=== PATIENT | male | born 1935 | race Caucasian/White ===

== ENCOUNTER 2016-11-13 15:55 | Inpatient (IN) | payer MEDICARE ==
[2016-11-12] MEDS: INSULIN ASPART SUPPLEMENTAL SCALE SQ SCH (23:00)
[2016-11-12] MEDS: ATENOLOL 25 MG TAB PO SCH (23:00)
[~2016-11-13] VITALS: Ht 170.2 cm; Wt 70.0 kg
[~2016-11-13 15:55] MED LIST: 1-ME1LIQ PO; ATEN-100 PO; GLUCTAB PO; HYDR-3533 PO; MEVA40TA PO; OMEP20TA39 PO; TEMA15 PO; WARF2.5 PO
[2016-11-13 17:21] VITALS: BP 111/65; PULSE 65; RESP 16; TEMP 98.1; O2SAT 99
[2016-11-13 17:43] VITALS: BP 156/71; PULSE 111; RESP 19; TEMP 98.7; TEMP 99; O2SAT 97
[2016-11-13] MEDS ORDERED: VANCOMYCIN INJ 1,000 MG in SODIUM CHLOR 0.9% 250 ML INJ 250 ML IV STA (17:48)
[2016-11-13] MEDS ORDERED: CEFEPIME INJ 2,000 MG in SODIUM CHLORIDE 0.9% INJ 100 ML IV STA (17:48)
[2016-11-13] MEDS ORDERED: SODIUM CHLOR 0.9% 1000 ML INJ 1,000 ML IV ONE (17:48)
--- NOTE | 2016-11-13 17:51 | PD ---
HPI Chief Complaint: Complaint Time Seen by Provider: 17:51 Travel History International Travel<30 days: No Contact w/Intl Traveler<30days: No Traveled to known affect area: No History of Present Illness HPI 81-year-old male history of CVA, hypertension, A. fib, prostate cancer, bladder cancer, diabetes, presents to the emergency department for evaluation. Patient states he had a procedure done on October 28 on his prostate and had a Delgado catheter placed since then. Since that time his penis has been hurting. He reports development of diarrhea over the last 2-3 days or he also reports nausea and vomiting. Denies any hematemesis or hematochezia. He states that he feels weak and chilled. He states that he has felt short of breath as well. Denies any chest pain. Reports recently but being on "some antibiotic"for his bladder. He is followed by Dr. Quang Mcdonough . [facility] Past Medical History Hx Anticoagulant Therapy: Yes Arthritis: Yes Cancer: Yes (BLADDER AND SKIN CANCER) Cardiovascular Problems: Yes High Cholesterol: Yes Chemotherapy: No Cerebrovascular Accident: Yes Diabetes: Yes Patient Takes Glucophage: Yes Diminished Hearing: Yes ([place]) Endocrine: Yes Gastrointestinal Disorders: Yes GERD: Yes Genitourinary: No Hypertension: Yes Immune Disorder: No Implanted Vascular Access Dvce: No Musculoskeletal: Yes Neurologic: Yes (CVA) Psychiatric: No Respiratory: No Immunizations Current: No Radiation Therapy: No Past Surgical History Eye Surgery: Yes (BILAT CATARACTS) Genitourinary Surgery: Yes (MULTIPLE BLADDER SURGERY R/T BLADDER CA) Prostatectomy: Yes Other Surgery: Yes Social History Alcohol Use: No Tobacco Use: No Substance Use: No Allergies-Medications (Allergen,Severity, Reaction): Coded Allergies: No Known Allergies (Unverified , 12/26/15) Reported Meds & Prescriptions Reported Meds & Active Scripts Active Lortab 5 mg/325 mg (Hydrocodone/Acetaminophen 5 mg/325 mg) 1 Tab 1 Tab PO Q8HR PRN Reported Hm Omeprazole (Omeprazole) 20 Mg Tab 20 Mg PO DAILY Glucophage XR 24 HR (Metformin HCl) 500 Mg Tab 500 Mg PO BID Restoril 15 mg (Temazepam) 15 Mg Cap 15 Mg PO HSPRN Atenolol 25 Mg Tab 5 Mg PO HS Lovastatin 40 Mg Tab 60 Mg PO HS 1-Methyl 2-Pyrrolidinone (1-Methyl 2-Pyrrolidone (Bulk)) 10 Mg Tab 10 Mg PO HS Coumadin (Warfarin Sodium) 2.5 Mg Tab 2.5 Mg PO HS Review of Systems Except as stated in HPI: all other systems reviewed are Neg Physical Exam Narrative GENERAL: Thin elderly male patient, lying in bed in no acute SKIN: Focused skin assessment warm/dry. HEAD: Atraumatic. Normocephalic. EYES: Pupils equal and round. No scleral icterus. No injection or drainage. ENT: No nasal bleeding or discharge. Mucous membranes pink and moist. NECK: Trachea midline. No JVD. CARDIOVASCULAR: Tachycardic rate and irregular rhythm. 2/6 systolic murmur appreciated. RESPIRATORY: Tachypneic, diminished to auscultation. Breath sounds equal bilaterally. GASTROINTESTINAL: Abdomen soft, non-tender, nondistended. Hepatic and splenic margins not palpable. GENITOURINARY: unCircumcised. Delgado catheter is in place. Foreskin retracts easily. Mild meatal irritation. Testes descended bilaterally without evidence of rotation. No lesions or erythema. No urethral discharge. MUSCULOSKELETAL: No obvious deformities. No clubbing. No cyanosis. No edema. NEUROLOGICAL: Awake and alert. No obvious cranial nerve deficits. Motor grossly within normal limits. Normal speech. PSYCHIATRIC: Appropriate mood and affect; insight and judgment normal. Data Data Last Documented VS Vital Signs Date Time Temp Pulse Resp B/P Pulse Ox O2 Delivery O2 Flow Rate FiO2 11/13/16 18:20 97 Room Air 11/13/16 17:43 99.0 111 19 156/71 Orders Complete Blood Count With Diff (11/13/16 17:48) Comprehensive Metabolic Panel (11/13/16 17:48) Prothrombin Time / Inr (Pt) (11/13/16 17:48) Act Partial Throm Time (Ptt) (11/13/16 17:48) Lactic Acid Sepsis Protocol (11/13/16 17:48) Magnesium (Mg) (11/13/16 17:48) Ckmb (Isoenzyme) Profile (11/13/16 17:48) Troponin I (11/13/16 17:48) Urinalysis - C+S If Indicated (11/13/16 17:48) Blood Culture (11/13/16 17:48) Chest, Single Ap (11/13/16 17:48) Blood Glucose (11/13/16 17:48) Ecg Monitoring (11/13/16 17:48) Iv Access Insert/Monitor (11/13/16 17:48) Oximetry (11/13/16 17:48) Oxygen Administration (11/13/16 17:48) Cefepime Inj (Maxipime Inj) (11/13/16 17:48) Vancomycin Inj (Vancomycin Inj) (11/13/16 17:48) Sodium Chlor 0.9% 1000 Ml Inj (Ns 1000 M (11/13/16 17:48) CKMB (11/13/16 16:00) CKMB% (11/13/16 16:00) C Diff Toxin Pcr (11/13/16 19:25) Replace Delgado (11/13/16 19:33) Electrocardiogram (11/13/16 17:54) Admit Order (Ed Use Only) (11/13/16 20:14) Labs Laboratory Tests Test 11/13/16 11/13/16 16:00 19:30 White Blood Count 1.5 TH/MM3 Red Blood Count 3.48 MIL/MM3 Hemoglobin 10.8 GM/DL Hematocrit 31.2 % Mean Corpuscular Volume 89.8 FL Mean Corpuscular Hemoglobin 30.9 PG Mean Corpuscular Hemoglobin 34.4 % Concent Red Cell Distribution Width 14.5 % Platelet Count 148 TH/MM3 Mean Platelet Volume 8.5 FL Neutrophils (%) (Auto) % Lymphocytes (%) (Auto) % Monocytes (%) (Auto) % Eosinophils (%) (Auto) % Basophils (%) (Auto) % Neutrophils # (Auto) TH/MM3 Lymphocytes # (Auto) TH/MM3 Monocytes # (Auto) TH/MM3 Eosinophils # (Auto) TH/MM3 Basophils # (Auto) TH/MM3 CBC Comment AUTO DIFF Differential Total Cells 100 Counted Neutrophils % (Manual) 53 % Band Neutrophils % 23 % Lymphocytes % 17 % Monocytes % 5 % Neutrophils # (Manual) 1.2 TH/MM3 Metamyelocytes 2 % Differential Comment FINAL DIFF MANUAL Toxic Granulation 1+ Platelet Estimate LOW Platelet Morphology Comment NORMAL Ovalocytes 1+ Acanthocytes OCC Keratocytes OCC Prothrombin Time 49.5 SEC Prothromb Time International 4.2 RATIO Ratio Activated Partial 53.7 SEC Thromboplast Time Sodium Level 136 MEQ/L Potassium Level 3.9 MEQ/L Chloride Level 102 MEQ/L Carbon Dioxide Level 22.9 MEQ/L Anion Gap 11 MEQ/L Blood Urea Nitrogen 21 MG/DL Creatinine 1.70 MG/DL Estimat Glomerular Filtration 39 ML/MIN Rate Random Glucose 123 MG/DL Lactic Acid Level 2.6 mmol/L Calcium Level 8.5 MG/DL Magnesium Level 2.0 MG/DL Total Bilirubin 0.6 MG/DL Aspartate Amino Transf 33 U/L (AST/SGOT) Alanine Aminotransferase 19 U/L (ALT/SGPT) Alkaline Phosphatase 51 U/L Total Creatine Kinase 433 U/L Creatine Kinase MB LESS THAN 0.5 NG/ML Creatine Kinase MB % 0.1 % Troponin I 0.07 NG/ML Total Protein 6.6 GM/DL Albumin 2.9 GM/DL Urine Color LIGHT-RED Urine Turbidity CLOUDY Urine pH 5.5 Urine Specific [place] 1.020 Urine Protein 100 mg/dL Urine Glucose (UA) NEG mg/dL Urine Ketones TRACE mg/dL Urine Occult Blood LARGE Urine Nitrite POS Urine Bilirubin NEG Urine Urobilinogen LESS THAN 2.0 MG/DL Urine Leukocyte Esterase LARGE Urine RBC /hpf Urine WBC 115 /hpf Urine Squamous Epithelial 1 /hpf Cells Urine Amorphous Sediment RARE Urine Bacteria MANY /hpf Urine Mucus FEW /lpf Microscopic Urinalysis Comment CATH-CULTURE IND MDM Medical Decision Making Medical Screen Exam Complete: Yes Emergency Medical Condition: Yes Medical Record Reviewed: Yes Differential Diagnosis UTI versus pneumonia versus electrolyte abnormality versus metastatic disease versus sepsis Narrative Course 81-year-old male presents to emergency department for evaluation. Patient is tachycardic and to Care in emergency department. He has a low-grade temperature. Septic workup is initiated. Patient is given cefepime and vancomycin. Delgado catheter is changed and urinalysis sent for evaluation. Laboratory Tests Test 11/13/16 11/13/16 16:00 19:30 White Blood Count 1.5 TH/MM3 Red Blood Count 3.48 MIL/MM3 Hemoglobin 10.8 GM/DL Hematocrit 31.2 % Mean Corpuscular Volume 89.8 FL Mean Corpuscular Hemoglobin 30.9 PG Mean Corpuscular Hemoglobin 34.4 % Concent Red Cell Distribution Width 14.5 % Platelet Count 148 TH/MM3 Mean Platelet Volume 8.5 FL Neutrophils (%) (Auto) % Lymphocytes (%) (Auto) % Monocytes (%) (Auto) % Eosinophils (%) (Auto) % Basophils (%) (Auto) % Neutrophils # (Auto) TH/MM3 Lymphocytes # (Auto) TH/MM3 Monocytes # (Auto) TH/MM3 Eosinophils # (Auto) TH/MM3 Basophils # (Auto) TH/MM3 CBC Comment AUTO DIFF Differential Total Cells 100 Counted Neutrophils % (Manual) 53 % Band Neutrophils % 23 % Lymphocytes % 17 % Monocytes % 5 % Neutrophils # (Manual) 1.2 TH/MM3 Metamyelocytes 2 % Differential Comment FINAL DIFF MANUAL Toxic Granulation 1+ Platelet Estimate LOW Platelet Morphology Comment NORMAL Ovalocytes 1+ Acanthocytes OCC Keratocytes OCC Prothrombin Time 49.5 SEC Prothromb Time International 4.2 RATIO Ratio Activated Partial 53.7 SEC Thromboplast Time Sodium Level 136 MEQ/L Potassium Level 3.9 MEQ/L Chloride Level 102 MEQ/L Carbon Dioxide Level 22.9 MEQ/L Anion Gap 11 MEQ/L Blood Urea Nitrogen 21 MG/DL Creatinine 1.70 MG/DL Estimat Glomerular Filtration 39 ML/MIN Rate Random Glucose 123 MG/DL Lactic Acid Level 2.6 mmol/L Calcium Level 8.5 MG/DL Magnesium Level 2.0 MG/DL Total Bilirubin 0.6 MG/DL Aspartate Amino Transf 33 U/L (AST/SGOT) Alanine Aminotransferase 19 U/L (ALT/SGPT) Alkaline Phosphatase 51 U/L Total Creatine Kinase 433 U/L Creatine Kinase MB LESS THAN 0.5 NG/ML Creatine Kinase MB % 0.1 % Troponin I 0.07 NG/ML Total Protein 6.6 GM/DL Albumin 2.9 GM/DL Urine Color LIGHT-RED Urine Turbidity CLOUDY Urine pH 5.5 Urine Specific [place] 1.020 Urine Protein 100 mg/dL Urine Glucose (UA) NEG mg/dL Urine Ketones TRACE mg/dL Urine Occult Blood LARGE Urine Nitrite POS Urine Bilirubin NEG Urine Urobilinogen LESS THAN 2.0 MG/DL Urine Leukocyte Esterase LARGE Urine RBC /hpf Urine WBC 115 /hpf Urine Squamous Epithelial 1 /hpf Cells Urine Amorphous Sediment RARE Urine Bacteria MANY /hpf Urine Mucus FEW /lpf Microscopic Urinalysis Comment CATH-CULTURE IND Last Impressions Chest X-Ray 11/13/16 1158 Signed Impressions: Service Date/Time: Sunday, November 13, 2016 18:15 - CONCLUSION: Increasing parenchymal changes right lower lobe. Serial films to resolution are suggested. Giuseppe Khanna MD FACR I discussed the patient with Dr. Mcdonough. He requested admission to his service with telemetry. Plan is discussed with the patient and he is known agreement with this plan of care. Sepsis Criteria SIRS Criteria (2 or more): Heart rate over 90, RR > 20 or PaCO2 < 32, WBC > 17575, < 4000 or > 10% bands Sepsis Criteria (SIRS+source): Infect source susp/known Severe Sepsis (+one): Lactate >2 Diagnosis Primary Impression: Sepsis Qualified Code: A41.9 - Sepsis, due to unspecified organism Additional Impressions: UTI (urinary tract infection) Qualified Code: T83.511A - Urinary tract infection associated with indwelling urethral catheter, initial encounter Diarrhea Qualified Code: R19.7 - Diarrhea, unspecified type Nausea & vomiting Qualified Code: R11.2 - Non-intractable vomiting with nausea, unspecified vomiting type Admitting Information Admitting Physician Requests: Admit Condition: Stable Jennifer Orellana Nov 13, 2016 17:51
[2016-11-13 18:20] VITALS: O2SAT 97
[2016-11-13 18:34] LABS: HEMATOCRIT 31.2 % (39.0-51.0); MEAN CELL VOLUME 89.8 FL (80.0-100.0); MEAN CORPUSCULAR HEMOGLOBIN 30.9 PG (27.0-34.0); MEAN CORPUSCULAR HGB CONC 34.4 % (32.0-36.0); PLATELET COUNT 148 TH/MM3 (150-450); RED BLOOD COUNT 3.48 MIL/MM3 (4.50-5.90); RED CELL DISTRIBUTION WIDTH 14.5 % (11.6-17.2); WHITE BLOOD COUNT 1.5 TH/MM3 (4.0-11.0)
[2016-11-13 18:35] LABS: HEMO FLAGS AUTO DIFF
--- NOTE | 2016-11-13 18:36 | RADRPT ---
EXAM DATE/TIME: 11/13/2016 18:15 [facility] COMPARISON: CHEST SINGLE AP, June 12, 2014, 5:21. INDICATIONS : Fever. History adenocarcinoma. In the mid and MEDICAL HISTORY : None. SURGICAL HISTORY : None. ENCOUNTER: Initial ACUITY: 1 day PAIN SCORE: 0/10 LOCATION: Bilateral chest FINDINGS: Linear parenchymal opacity is seen in the right lung with increasing frontal changes right lower lobe . The left lung is clear. The heart and pulmonary vascularity are normal. CONCLUSION: Increasing parenchymal changes right lower lobe. Serial films to resolution are john cerda. Giuseppe Khanna MD FACR on November 13, 2016 at 18:33 Board Certified Radiologist. This report was verified electronically.
[2016-11-13 18:52] LABS: APTT (PATIENT) 53.7 SEC (24.3-30.1); INTERNATIONAL NORMALIZED RATIO 4.2 RATIO; PROTHROMBIN TIME - PATIENT 49.5 SEC (9.8-11.6)
[2016-11-13 18:56] LABS: ALT (GPT) 19 U/L (12-78)
[2016-11-13 19:00] LABS: ALKALINE PHOSPHATASE 51 U/L (45-117); CREATINE KINASE 433 U/L (39-308); TOTAL BILIRUBIN ADULT 0.6 MG/DL (0.2-1.0)
[2016-11-13 19:08] LABS: BANDS 23 % (0-6); METAMYELOCYTES 2 % (0-1); NEUTROPHIL # MANUAL DIFF 1.2 TH/MM3 (1.8-7.7); POLYS (SEG NEUTROPHILS) 53 % (16-70); SCAN/DIFF FINAL DIFF MANUAL; WBC DIFF SAMPLE 100
[2016-11-13 19:09] LABS: OVALOCYTES 1+ (NORMAL); PLATELET ESTIMATE SMEAR LOW (NORMAL); PLATELET MORPHOLOGY NORMAL (NORMAL); TOXIC GRANULATION 1+ (NORMAL)
[2016-11-13 19:10] LABS: ACANTHOCYTES OCC (NORMAL); KERATOCYTES OCC (NORMAL)
[2016-11-13 19:13] LABS: CKMB LESS THAN 0.5 NG/ML (0.5-3.6)
[2016-11-13 19:24] LABS: ANION GAP 11 MEQ/L (5-15); AST (GOT) 33 U/L (15-37); BICARBONATE 22.9 MEQ/L (21.0-32.0); BLOOD UREA NITROGEN 21 MG/DL (7-18); CHLORIDE 102 MEQ/L (98-107); GLOMERULAR FILTRATION RATE 39 ML/MIN (>89); POTASSIUM 3.9 MEQ/L (3.5-5.1); SODIUM (NA) 136 MEQ/L (136-145)
[2016-11-13 20:17] LABS: BACTERIA, URINE MANY /hpf; BLOOD, URINE LARGE (NEG); GLUCOSE,URINE NEG (NEG); KETONE, URINE TRACE mg/dL (NEG); MUCUS URINE FEW /lpf (OCC); PH, URINE 5.5 (5.0-8.5); SQUAMOUS EPITHELIAL CELL URINE 1 /hpf (0-5)
[2016-11-13 20:20] LABS: COMMENT (UR) CATH-CULTURE IND; CULTURE IF INDICATED CATH CULTURE IND; NITRITE,URINE POS (NEG); URINE COLOR LIGHT-RED (YELLW/STRAW)
[2016-11-13 20:20] LABS: LACTIC ACID GHOST NOT REPORTABLE
[2016-11-13] MEDS ORDERED: ACETAMINOPHEN 325 MG TAB PO PRN (20:30)
[2016-11-13] MEDS ORDERED: SENNOSIDES 8.6 MG TAB PO PRN (20:30)
[2016-11-13] MEDS ORDERED: NALOXONE HCL 0.4 MG/ML AMP IV PRN (20:30)
[2016-11-13] MEDS ORDERED: ONDANSETRON HCL 4 MG/2 ML VIAL IVP PRN (20:30)
[2016-11-13] MEDS ORDERED: MAGNESIUM HYDROXIDE SUSP 30 ML CUP PO PRN (20:30)
[2016-11-13] MEDS ORDERED: BISACODYL 10 MG SUPP RECTAL PRN (20:30)
[2016-11-13] MEDS ORDERED: TEMAZEPAM 15 MG CAP PO PRN (20:30)
[2016-11-13] MEDS ORDERED: LACTULOSE SYRUP 20 GM/30 ML CUP PO PRN (20:30)
[2016-11-13] MEDS ORDERED: SODIUM CHLORIDE 0.9% FLUSH 10 ML FLUSH IV FLUSH PRN (20:30)
[2016-11-13] MEDS ORDERED: DEXTROSE 50% IN WATER 50 ML VIAL(D50) IV PRN (20:45)
[2016-11-13] MEDS ORDERED: GLUCAGON 1 MG/ML VIAL OTHER PRN (20:45)
[2016-11-13] MEDS ORDERED: Vancomycin Consult Pharmacy 1 EA OTHER SCH (20:45)
[2016-11-13] MEDS ORDERED: WARFARIN SOD 2.5 MG TAB PO SCH (21:00)
[2016-11-13] MEDS ORDERED: TEMAZEPAM 15 MG CAP PO SCH (21:00)
[2016-11-13] MEDS: SODIUM CHLORIDE 0.9% FLUSH 10 ML FLUSH IV FLUSH SCH (21:00)
--- NOTE | 2016-11-13 21:05 | PD ---
Data Data Last Documented VS Vital Signs Date Time Temp Pulse Resp B/P Pulse Ox O2 Delivery O2 Flow Rate FiO2 11/13/16 18:20 97 Room Air 11/13/16 17:43 99.0 111 19 156/71 Orders Complete Blood Count With Diff (11/13/16 17:48) Comprehensive Metabolic Panel (11/13/16 17:48) Prothrombin Time / Inr (Pt) (11/13/16 17:48) Act Partial Throm Time (Ptt) (11/13/16 17:48) Lactic Acid Sepsis Protocol (11/13/16 17:48) Magnesium (Mg) (11/13/16 17:48) Ckmb (Isoenzyme) Profile (11/13/16 17:48) Troponin I (11/13/16 17:48) Urinalysis - C+S If Indicated (11/13/16 17:48) Blood Culture (11/13/16 17:48) Chest, Single Ap (11/13/16 17:48) Blood Glucose (11/13/16 17:48) Ecg Monitoring (11/13/16 17:48) Iv Access Insert/Monitor (11/13/16 17:48) Oximetry (11/13/16 17:48) Oxygen Administration (11/13/16 17:48) Cefepime Inj (Maxipime Inj) (11/13/16 17:48) Vancomycin Inj (Vancomycin Inj) (11/13/16 17:48) Sodium Chlor 0.9% 1000 Ml Inj (Ns 1000 M (11/13/16 17:48) CKMB (11/13/16 16:00) CKMB% (11/13/16 16:00) C Diff Toxin Pcr (11/13/16 19:25) Replace Delgado (11/13/16 19:33) Electrocardiogram (11/13/16 17:54) Admit Order (Ed Use Only) (11/13/16 20:14) Labs Laboratory Tests Test 11/13/16 11/13/16 16:00 19:30 White Blood Count 1.5 TH/MM3 Red Blood Count 3.48 MIL/MM3 Hemoglobin 10.8 GM/DL Hematocrit 31.2 % Mean Corpuscular Volume 89.8 FL Mean Corpuscular Hemoglobin 30.9 PG Mean Corpuscular Hemoglobin 34.4 % Concent Red Cell Distribution Width 14.5 % Platelet Count 148 TH/MM3 Mean Platelet Volume 8.5 FL Neutrophils (%) (Auto) % Lymphocytes (%) (Auto) % Monocytes (%) (Auto) % Eosinophils (%) (Auto) % Basophils (%) (Auto) % Neutrophils # (Auto) TH/MM3 Lymphocytes # (Auto) TH/MM3 Monocytes # (Auto) TH/MM3 Eosinophils # (Auto) TH/MM3 Basophils # (Auto) TH/MM3 CBC Comment AUTO DIFF Differential Total Cells 100 Counted Neutrophils % (Manual) 53 % Band Neutrophils % 23 % Lymphocytes % 17 % Monocytes % 5 % Neutrophils # (Manual) 1.2 TH/MM3 Metamyelocytes 2 % Differential Comment FINAL DIFF MANUAL Toxic Granulation 1+ Platelet Estimate LOW Platelet Morphology Comment NORMAL Ovalocytes 1+ Acanthocytes OCC Keratocytes OCC Prothrombin Time 49.5 SEC Prothromb Time International 4.2 RATIO Ratio Activated Partial 53.7 SEC Thromboplast Time Sodium Level 136 MEQ/L Potassium Level 3.9 MEQ/L Chloride Level 102 MEQ/L Carbon Dioxide Level 22.9 MEQ/L Anion Gap 11 MEQ/L Blood Urea Nitrogen 21 MG/DL Creatinine 1.70 MG/DL Estimat Glomerular Filtration 39 ML/MIN Rate Random Glucose 123 MG/DL Lactic Acid Level 2.6 mmol/L Calcium Level 8.5 MG/DL Magnesium Level 2.0 MG/DL Total Bilirubin 0.6 MG/DL Aspartate Amino Transf 33 U/L (AST/SGOT) Alanine Aminotransferase 19 U/L (ALT/SGPT) Alkaline Phosphatase 51 U/L Total Creatine Kinase 433 U/L Creatine Kinase MB LESS THAN 0.5 NG/ML Creatine Kinase MB % 0.1 % Troponin I 0.07 NG/ML Total Protein 6.6 GM/DL Albumin 2.9 GM/DL Urine Color LIGHT-RED Urine Turbidity CLOUDY Urine pH 5.5 Urine Specific [place] 1.020 Urine Protein 100 mg/dL Urine Glucose (UA) NEG mg/dL Urine Ketones TRACE mg/dL Urine Occult Blood LARGE Urine Nitrite POS Urine Bilirubin NEG Urine Urobilinogen LESS THAN 2.0 MG/DL Urine Leukocyte Esterase LARGE Urine RBC /hpf Urine WBC 115 /hpf Urine Squamous Epithelial 1 /hpf Cells Urine Amorphous Sediment RARE Urine Bacteria MANY /hpf Urine Mucus FEW /lpf Microscopic Urinalysis Comment CATH-CULTURE IND MDM Supervised Visit with [facility]: Yes Narrative Course The history, exam, and medical decision-making in the associated mid-level provider note were completed with my assistance. I reviewed and agree with the findings presented. I attest that I had a [id number] encounter with the patient on the same day, and personally performed and documented my assessment and findings in the medical record. *My assessment and Findings: Is an 81-year-old man who presents to the emergency department when of feeling poorly. His a history of bladder cancer and on October 30 underwent a cystoscopy with bladder tumor resection. He is not on any chemotherapy. The were not plan on keeping the catheter be had it replaced for with sounds like urinary leakage not obstruction. He states since that time he said worsening feelings of generally feeling sick, dehydrated, is also had diarrhea. He's had subjective fever and chills as well. He appears somewhat ill. His white count is low for unclear reasons. He has a bandemia. Patient meets sepsis criteria. Give IV fluids antibiotics and admission. Diagnosis Primary Impression: Sepsis Qualified Code: A41.9 - Sepsis, due to unspecified organism Additional Impressions: Nausea & vomiting Qualified Code: R11.2 - Non-intractable vomiting with nausea, unspecified vomiting type Diarrhea Qualified Code: R19.7 - Diarrhea, unspecified type UTI (urinary tract infection) Qualified Code: T83.511A - Urinary tract infection associated with indwelling urethral catheter, initial encounter Condition: Attila Arechiga MD Nov 13, 2016 21:05
[2016-11-13 21:35] VITALS: BP 148/78; PULSE 76; RESP 18; TEMP 98.1; O2SAT 98
--- NOTE | 2016-11-13 22:27 | EKG ---
Date Performed: 11/13/2016 Time Performed: 17:54:44 PTAGE: 81 years EKG: POSSIBLE Sinus rhythm WITH PACs LOW QRS VOLTAGE IN EXTREMITY LEADS ABNORMAL RHYTHM ECG NO PREVIOUS TRACING DOCTOR: Kobe Guardado Interpretating Date/Time 11/13/2016 22:26:35
[2016-11-13 23:00] VITALS: BP 129/62; PULSE 98; RESP 19; TEMP 98.2; O2SAT 95
[2016-11-13] MEDS: DOCUSATE SODIUM 50 MG/SENNA 8.6 MG TAB PO SCH (23:00)
[2016-11-13] MEDS ORDERED: PILL SPLITTER OTHER PRN (23:45)
[2016-11-14] MEDS ORDERED: VANCOMYCIN INJ 750 MG in SODIUM CHLOR 0.9% 250 ML INJ 250 ML IV ONE ×2
[2016-11-14 00:36] LABS: INTERNATIONAL NORMALIZED RATIO 4.9 RATIO; PROTHROMBIN TIME - PATIENT 58.6 SEC (9.8-11.6)
[2016-11-14] MEDS: D5-1/2 NS + KCL 20 MEQ INJ 1,000 ML IV SCH ×3 (01:45→17:19)
[2016-11-14] MEDS: ACETAMINOPHEN/HYDROcodone 325 MG/5 MG TAB PO PRN ×3 (01:53→18:40)
[2016-11-14 02:31] LABS: C. DIFF EPI 027 PRESUMPTIVE NEGATIVE (NEGATIVE)
[2016-11-14 03:25] LABS: C. DIFF TOXIN PCR POSITIVE (NEGATIVE)
[2016-11-14 06:28] LABS: HEMATOCRIT 28.3 % (39.0-51.0); MEAN CELL VOLUME 89.7 FL (80.0-100.0); MEAN CORPUSCULAR HEMOGLOBIN 30.9 PG (27.0-34.0); MEAN CORPUSCULAR HGB CONC 34.4 % (32.0-36.0); PLATELET COUNT 107 TH/MM3 (150-450); PROTHROMBIN TIME - PATIENT 72.8 SEC (9.8-11.6); RED BLOOD COUNT 3.15 MIL/MM3 (4.50-5.90); RED CELL DISTRIBUTION WIDTH 14.4 % (11.6-17.2)
[2016-11-14 06:38] LABS: HEMO FLAGS AUTO DIFF
[2016-11-14 06:42] LABS: INTERNATIONAL NORMALIZED RATIO 6.1 RATIO
[2016-11-14] MEDS: CEFEPIME INJ 1,000 MG in SODIUM CHLORIDE 0.9% INJ 100 ML IV SCH ×2 (06:45→18:33)
[2016-11-14 06:48] LABS: ALT (GPT) 16 U/L (12-78); ANION GAP 12 MEQ/L (5-15); AST (GOT) 24 U/L (15-37); BICARBONATE 24.5 MEQ/L (21.0-32.0); BLOOD UREA NITROGEN 18 MG/DL (7-18); CHLORIDE 103 MEQ/L (98-107); GLOMERULAR FILTRATION RATE 49 ML/MIN (>89); POTASSIUM 3.3 MEQ/L (3.5-5.1); SODIUM (NA) 139 MEQ/L (136-145)
[2016-11-14] MEDS: INSULIN ASPART SUPPLEMENTAL SCALE SQ SCH ×4 (06:48→21:00)
[2016-11-14 06:51] LABS: ALKALINE PHOSPHATASE 46 U/L (45-117); TOTAL BILIRUBIN ADULT 0.5 MG/DL (0.2-1.0)
[2016-11-14] MEDS ORDERED: PHYTONADIONE 10 MG/ML VIAL SQ ONE (07:30)
[2016-11-14 07:59] VITALS: BP 110/61; PULSE 95; RESP 20; TEMP 96.9; O2SAT 96
[2016-11-14] MEDS: PANTOPRAZOLE SOD 20 MG DELAYED RELEASE TAB PO SCH (08:02)
[2016-11-14] MEDS: SODIUM CHLORIDE 0.9% FLUSH 10 ML FLUSH IV FLUSH SCH ×2 (08:05→22:00)
[2016-11-14] MEDS: DOCUSATE SODIUM 50 MG/SENNA 8.6 MG TAB PO SCH ×2 (08:06→21:00)
[2016-11-14] MEDS: PANTOPRAZOLE SODIUM 40 MG VIAL IV PUSH SCH ×2 (08:15→22:00)
[2016-11-14 08:33] LABS: BANDS 9 % (0-6); EOSINOPHILS 2 % (0-4); NEUTROPHIL # MANUAL DIFF 0.8 TH/MM3 (1.8-7.7); PLATELET ESTIMATE SMEAR LOW (NORMAL); PLATELET MORPHOLOGY NORMAL (NORMAL); POLYS (SEG NEUTROPHILS) 66 % (16-70); SCAN/DIFF FINAL DIFF MANUAL; WBC DIFF SAMPLE 100
--- NOTE | 2016-11-14 08:51 | HHI.HP ---
History of Present Illness Service INTERNAL MEDICINE Primary Care Physician QUANG DE LA ROSA MD Admission Diagnosis SEPSIS; UTI; NEUTROPENIA. INTRACTABLE DIARRHEA. Diagnoses: History of Present Illness This patient is an 81 year old male who recently had instrumentation of the bladder secondary presence of bladder cancer. He is followed by Dr. Derrick Quigley in Urology with regard to having a history of Bladder Cancer and Prostate Cancer. He follows with Dr. Dorian Rebolledo in Oncology for Mantle Cell Lymphoma, Stage 4B. He was recently found a with very rapid heart rate and very rapid respiration by the Home Care nurse. He further had borderline to low blood pressure. In addition, he was found to have multiple loose stools that are also associated with severe nausea and vomiting. He became severely weakened and was then transported to the [facility] for evaluation. He is found with a sepsis presentation and being hemodynamically unstable. He is admitted to the hospital in this regard. Review of Systems Constitutional: COMPLAINS OF: Fatigue, Weight loss, Dizziness, Change in appetite Endocrine: COMPLAINS OF: Polyuria Respiratory: COMPLAINS OF: Cough, Shortness of breath Gastrointestinal: COMPLAINS OF: Diarrhea Genitourinary: COMPLAINS OF: Urgency, Nocturia Musculoskeletal: COMPLAINS OF: Stiffness, Back pain Past Family Social History Allergies: Coded Allergies: No Known Allergies (Unverified , 12/26/15) Past Medical History 1. Hypertension. 2. Hyperlipidemia. 3. Seasonal Allergies. 4. Prostate Cancer in 1992. 5. Cerebral Vascular Accident in 1999. 6. Osteoarthritis. 7. Diabetes Mellitus, Type 2. 8. Bladder Cancer in 2006. 9. Paroxysmal Atrial Fibrillation in 2007. 10. Mantle Cell Lymphoma, Stage 4B in 2013. 11. Right Lung Cancer in 2014. Past Surgical History 1. Prostatectomy for prostate cancer in 1992. 2. Multiple Transurethral Resection of the Prostate procedures. 3. Multiple Cystoscopies. 4. Colonoscopy. 5. Lymph node biopsy. Family History Father is secondary to Myocardial Infarction. Mother of old age. He has two brothers and one sister and their health status is not known by him. He has no children. Social History He was born in [place], [place]. He is single and was never . He completed his high school education. 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 He is currently a nonsmoker, having discontinued use of cigarettes in 1992. He previously smoked one pack of cigarettes daily since age 20's. He does not drink any alcohol. He makes no use of recreational drugs. Physical Exam Vital Signs Vital Signs Date Time Temp Pulse Resp B/P Pulse Ox O2 Delivery O2 Flow Rate FiO2 11/14/16 07:59 96.9 95 20 110/61 96 11/14/16 02:53 18 11/13/16 23:00 98.2 98 19 129/62 95 11/13/16 21:35 98.1 76 18 148/78 98 Room Air 11/13/16 18:20 97 Room Air 11/13/16 18:20 97 Room Air 11/13/16 17:43 99.0 111 19 156/71 97 11/13/16 17:21 98.1 65 16 111/65 99 Room Air Physical Exam GENERAL: This is a well-nourished, well-developed patient, in moderate distress for abdominal discomfort. SKIN: No rashes or lesions. Cool and dry. HEAD: Atraumatic. Normocephalic. No temporal or scalp tenderness. EYES: Pupils equal round and reactive. Extraocular motions intact. No scleral icterus. No injection or drainage. ENT: Nose without bleeding or purulent drainage. Throat without erythema, tonsillar hypertrophy or exudate. Uvula midline. Airway patent. NECK: Trachea midline. No JVD or lymphadenopathy. Supple, nontender, no meningeal signs. CARDIOVASCULAR: Regular rhythm today with the rate controlled and without gallops, or rubs. RESPIRATORY: Clear to auscultation. Breath sounds equal bilaterally. No wheezes , rales, or rhonchi. GASTROINTESTINAL: Abdomen soft and nondistended. There is mild diffuse mid to lower region tenderness to exam. No hepato-splenomegaly, or palpable masses. No guarding. MUSCULOSKELETAL: Extremities without clubbing, cyanosis, or edema. No joint tenderness, effusion, or edema noted. No calf tenderness. Negative Homans sign bilaterally. NEUROLOGICAL: Awake and alert. Cranial nerves II through XII intact. Motor and sensory grossly within normal limits. Five out of 5 muscle strength in all muscle groups. Normal speech. Laboratory Laboratory Tests Test 11/13/16 11/13/16 11/14/16 11/14/16 16:00 19:30 00:13 00:30 White Blood Count 1.5 Red Blood Count 3.48 Hemoglobin 10.8 Hematocrit 31.2 Mean Corpuscular Volume 89.8 Mean Corpuscular Hemoglobin 30.9 Mean Corpuscular Hemoglobin 34.4 Concent Red Cell Distribution Width 14.5 Platelet Count 148 Mean Platelet Volume 8.5 Neutrophils (%) (Auto) Lymphocytes (%) (Auto) Monocytes (%) (Auto) Eosinophils (%) (Auto) Basophils (%) (Auto) Neutrophils # (Auto) Lymphocytes # (Auto) Monocytes # (Auto) Eosinophils # (Auto) Basophils # (Auto) CBC Comment AUTO DIFF Differential Total Cells 100 Counted Neutrophils % (Manual) 53 Band Neutrophils % 23 Lymphocytes % 17 Monocytes % 5 Neutrophils # (Manual) 1.2 Metamyelocytes 2 Differential Comment FINAL DIFF MANUAL Toxic Granulation 1+ Platelet Estimate LOW Platelet Morphology Comment NORMAL Ovalocytes 1+ Acanthocytes OCC Keratocytes OCC Prothrombin Time 49.5 58.6 Prothromb Time International 4.2 4.9 Ratio Activated Partial 53.7 Thromboplast Time Sodium Level 136 Potassium Level 3.9 Chloride Level 102 Carbon Dioxide Level 22.9 Anion Gap 11 Blood Urea Nitrogen 21 Creatinine 1.70 Estimat Glomerular Filtration 39 Rate Random Glucose 123 Lactic Acid Level 2.6 1.4 Calcium Level 8.5 Magnesium Level 2.0 Total Bilirubin 0.6 Aspartate Amino Transf 33 (AST/SGOT) Alanine Aminotransferase 19 (ALT/SGPT) Alkaline Phosphatase 51 Total Creatine Kinase 433 Creatine Kinase MB LESS THAN 0.5 Creatine Kinase MB % 0.1 Troponin I 0.07 Total Protein 6.6 Albumin 2.9 Urine Color LIGHT-RED Urine Turbidity CLOUDY Urine pH 5.5 Urine Specific Lackey 1.020 Urine Protein 100 Urine Glucose (UA) NEG Urine Ketones TRACE Urine Occult Blood LARGE Urine Nitrite POS Urine Bilirubin NEG Urine Urobilinogen LESS THAN 2.0 Urine Leukocyte Esterase LARGE Urine RBC Urine WBC 115 Urine Squamous Epithelial 1 Cells Urine Amorphous Sediment RARE Urine Bacteria MANY Urine Mucus FEW Microscopic Urinalysis Comment CATH-CULTURE IND Stool C. difficile Toxin (PCR) POSITIVE Stl C. difficile Toxin PRESUMPTIVE Epiderm 027 NEGATIVE Test 11/14/16 06:07 White Blood Count 1.0 Red Blood Count 3.15 Hemoglobin 9.7 Hematocrit 28.3 Mean Corpuscular Volume 89.7 Mean Corpuscular Hemoglobin 30.9 Mean Corpuscular Hemoglobin 34.4 Concent Red Cell Distribution Width 14.4 Platelet Count 107 Mean Platelet Volume 8.5 Neutrophils (%) (Auto) Lymphocytes (%) (Auto) Monocytes (%) (Auto) Eosinophils (%) (Auto) Basophils (%) (Auto) Neutrophils # (Auto) Lymphocytes # (Auto) Monocytes # (Auto) Eosinophils # (Auto) Basophils # (Auto) CBC Comment AUTO DIFF Differential Total Cells 100 Counted Neutrophils % (Manual) 66 Band Neutrophils % 9 Lymphocytes % 20 Monocytes % 3 Eosinophils % 2 Neutrophils # (Manual) 0.8 Differential Comment FINAL DIFF MANUAL Platelet Estimate LOW Platelet Morphology Comment NORMAL Prothrombin Time 72.8 Prothromb Time International 6.1 Ratio Sodium Level 139 Potassium Level 3.3 Chloride Level 103 Carbon Dioxide Level 24.5 Anion Gap 12 Blood Urea Nitrogen 18 Creatinine 1.40 Estimat Glomerular Filtration 49 Rate Random Glucose 151 Lactic Acid Level 1.3 Calcium Level 8.3 Total Bilirubin 0.5 Aspartate Amino Transf 24 (AST/SGOT) Alanine Aminotransferase 16 (ALT/SGPT) Alkaline Phosphatase 46 Total Protein 6.0 Albumin 2.6 Date/Time Procedure Status Source Growth 11/14/16 00:13 Aerobic Blood Culture Received Blood Peripheral Pending 11/14/16 00:13 Anaerobic Blood Culture Received Blood Peripheral Pending 11/13/16 19:30 Urine Culture Received Urine Catheterized Urine Pending Result Diagram: 11/14/16 0607 11/14/16 0607 Assessment and Plan Assessment and Plan ASSESSMENT 1. Acute Neutropenic Sepsis. 2. Hypotension. 3. Urinary Tract Infection, on admission. 4. C. Difficile Colitis. 5. Anemia with Thrombocytopenia. 6. Mantle Cell Lymphoma, Stage 4 b. 7. Bladder Cancer. 8. Right Lung Cancer. 9. Paroxysmal Atrial Fibrillation. 10. Diabetes Mellitus, Type 2. 11. Hypertension. 12. Hyperlipidemia. PLAN 1. Admit to the Hospital as an Inpatient. 2. Blood and Urine Cultures with Stool Evaluation. 3. Consultation to Hematology. 4. Consultation to Infectious Disease. 5. Consultation to Urology. 6. Intravenous antibiotics. 7. Intravenous hydration with electrolyte repletion. 8. Follow up laboratory assessments. 9. DVT, PE and PUD prophylaxis. Quang De La Rosa MD Nov 14, 2016 08:51
[2016-11-14] MEDS ORDERED: VANCOMYCIN INJ 1,000 MG in SODIUM CHLOR 0.9% 250 ML INJ 250 ML IV SCH (09:00)
[2016-11-14] MEDS: metFORMIN HCL 500 MG TAB PO SCH ×2 (10:25→18:33)
[2016-11-14] MEDS: metroNIDAZOLE 500 MG TAB PO SCH ×2 (11:40→18:33)
[2016-11-14 12:00] VITALS: BP 128/74; PULSE 124; RESP 17; TEMP 100.5; O2SAT 95
--- NOTE | 2016-11-14 13:38 | MB ---
cc: TEE BEACH MD DATE OF CONSULTATION 11/14/[address] Mcdonough REASON FOR CONSULTATION Sepsis. HISTORY OF PRESENT ILLNESS This is an 81-year-old white male who presented to the emergency department with pain in the penis and also diarrhea along with nausea and vomiting. The patient also complained of feeling weak. The patient also complained of feeling weak. In the emergency department the patient's heart rate was 111 and his temperature was 99 degrees. His white count was 1.5 and the platelet count was decreased at 148 and differential reveals 23% bands. He also exhibited acute renal failure with creatinine of 1.70 and estimated GFR of 39 and lactic level of 2.6. The patient was noted to have abnormal urinalysis and urine culture was taken and blood cultures were obtained as well. Blood culture has gram-negative tyrell in two bottles of one set. The urine culture is pending. The patient complains of feeling hot and cold to me and he also complains of burning at the site of the Delgado and that he feels weak. He is also having diarrhea. He reports that he was on antibiotics for a lung infection approximately 6 weeks ago but does not recall antibiotics being given after that. The white count today is lower than yesterday. Today it is 1.0 and differential 66% neutrophils and 9% bands. The patient denies coughing. Stool C-difficile toxin is positive. PAST MEDICAL HISTORY Prostate cancer. Recent prostate procedure on October 28 and subsequent placement of Delgado catheter. The patient had a Delgado catheter in place when he presented to the emergency department. Atrial fibrillation, hypertension, history of the CVA, diabetes mellitus, history of bladder cancer, diminished hearing, bladder cancer surgery, bilateral cataract surgery, prostatectomy. ALLERGIES NO KNOWN DRUG ALLERGIES. MEDICATIONS 1. Vancomycin. 2. Cefepime. 3. Metronidazole. 4. Glucophage. 5. Protonix. 6. Pravachol. 7. [place]-Colace. 8. Tenormin. 9. Insulin. 10. [place] 5 p.r.n. 11. Potassium. SOCIAL HISTORY No tobacco or alcohol or illicit drugs. FAMILY HISTORY Noncontributory. REVIEW OF SYSTEMS Pertinent mentioned above in the history of present illness. The patient denies abdominal pain. PHYSICAL EXAMINATION GENERAL: This is a slender male who appears well-nourished. In no acute distress. VITAL SIGNS: Include temperature of 96.9, BP 110/61, respirations 20, heart rate 95. HEENT: Head atraumatic. No visible lesions. Extraocular movements grossly intact, pupils are reactive to light. No icterus. Oropharynx dry mucosa without lesions. NECK: Supple. No adenopathy. LUNGS: Clear to auscultation. HEART: Irregular S1-S2. No audible murmurs. No rubs or gallops. ABDOMEN: Flat, soft, no tenderness appreciated. : Normal genitalia. RECTAL: Not performed. EXTREMITIES: No clubbing or cyanosis or edema. SKIN: The skin appears pale. No rash. The skin is warm and dry. NEURO: No gross focal findings. PSYCHIATRIC: The patient calm and cooperative and thought process appears intact. LABORATORY DATA WBC 1.0, platelets 107, 66% neutrophils, 9% bands, 20% lymphocytes, creatinine 1.40, BUN 18, estimated GFR 49, sodium 139. Liver function tests normal. IMPRESSION 1. Gram-negative sepsis. 2. Urinary tract infection likely the source of gram-negative sepsis. 3. Neutropenia. 4. Thrombocytopenia. Patient with severe sepsis indicated by the increased lactic acid, elevated heart rate, acute renal failure, neutropenia. RECOMMENDATIONS 1. Continue cefepime. 2. Discontinue vancomycin. 3. Continue metronidazole oral. 4. Monitor blood culture. 5. Monitor blood counts. 6. Monitor renal function. 7. Monitor clinical response. Because of the profound neutropenia will also add a second gram-negative agent in case the blood culture is resistant to cefepime. Thank you for this consultation. Tee Beach MD FD/HUMBERTO /12:59 PM /1:18 PM
[2016-11-14] MEDS: AZTREONAM INJ 1,000 MG in SODIUM CHLORIDE 0.9% INJ 100 ML IV SCH (14:46)
[2016-11-14 16:00] VITALS: BP 115/69; PULSE 89; RESP 17; TEMP 96.9; O2SAT 95
[2016-11-14 16:35] LABS: HEMATOCRIT 28.7 % (39.0-51.0); MEAN CELL VOLUME 90.1 FL (80.0-100.0); MEAN CORPUSCULAR HEMOGLOBIN 30.6 PG (27.0-34.0); PLATELET COUNT 93 TH/MM3 (150-450); RED BLOOD COUNT 3.18 MIL/MM3 (4.50-5.90); RED CELL DISTRIBUTION WIDTH 14.4 % (11.6-17.2); WHITE BLOOD COUNT 1.3 TH/MM3 (4.0-11.0)
[2016-11-14 16:40] LABS: HEMO FLAGS AUTO DIFF
[2016-11-14 17:01] LABS: BICARBONATE 23.1 MEQ/L (21.0-32.0); POTASSIUM 3.4 MEQ/L (3.5-5.1)
[2016-11-14 17:25] LABS: BANDS 11 % (0-6); EOSINOPHILS 1 % (0-4); METAMYELOCYTES 4 % (0-1); NEUTROPHIL # MANUAL DIFF 0.8 TH/MM3 (1.8-7.7); POLYS (SEG NEUTROPHILS) 46 % (16-70); WBC DIFF SAMPLE 100
[2016-11-14 17:27] LABS: OVALOCYTES 1+ (NORMAL); PLATELET ESTIMATE SMEAR LOW (NORMAL); TEARDROP RBCS 1+ (NORMAL)
[2016-11-14 17:28] LABS: PLATELET MORPHOLOGY NORMAL (NORMAL); SCAN/DIFF FINAL DIFF MANUAL
[2016-11-14 20:00] VITALS: BP 157/69; PULSE 95; RESP 18; TEMP 96.5; O2SAT 95
[2016-11-14] MEDS ORDERED: VANCOMYCIN INJ 1,500 MG in SODIUM CHLORID 0.9% 500 ML INJ 500 ML IV SCH (21:00)
--- NOTE | 2016-11-14 21:24 | MB ---
cc: LIBBY MAGANA DATE OF CONSULTATION 11/14/16 REASON FOR CONSULTATION History of multiple malignancies and neutropenia. PATIENT PROFILE The patient is an 81-year white male. He is single. He was never . He lives alone. He has born in [place]. He has lived in [place] since 1958. 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 He stopped smoking in 1992 and previously smoked a pack of cigarettes per day. He does not drink alcohol. HISTORY OF PRESENT ILLNESS The patient is an 81-year-old male who has had at least three malignancies. He was found to have a carcinoma of the right lung in August of 2014 and was treated with radiation completed in October of 2014. To the best of my knowledge, he has no evidence of recurrent disease. He has had a bladder cancer and has been treated by Dr. Quigley. He has undergone multiple TURPs. He does not have metastatic disease. He has a non-Hodgkin's lymphoma and specifically a mantle cell lymphoma. He received bendamustine and Rituxan in the past and is now on maintenance Rituxan. His oncologist is Dr. Dorian Rebolledo. He has an indwelling Delgado. On the day of admission, he developed fever, chills, and diarrhea. He went to the hospital on 11/13. He was found to have a hemoglobin 10.8, white count 1500, platelets 148,000. Neutrophils of 53%, total neutrophil count of 1200. Today on 11/14, hemoglobin 9.8, white count 1300 and the platelet count is 93,000. The total neutrophil count is 800. His blood culture from 11/13 is growing out Enterobacter. He has an indwelling Delgado catheter with hematuria. PAST SURGICAL HISTORY 1. TURPs for bladder cancer 2. Removal of skin cancers 3. At some point, he may have had a lymph node biopsy establishing diagnosis of mantle cell cancer 4. History of prostate cancer treated with prostatectomy in 1992. PAST MEDICAL HISTORY 1. The patient currently on maintenance for Rituxan for mantle cell lymphoma. 2. History of atrial fibrillation 3. Previous history of stroke 4. Diabetes MEDICATIONS Current, 1. Pravachol 2. levetiracetam 3. Flagyl 4. Metformin 5. Protonix 6. Cefepime 7. Atenolol 8. Insulin. ALLERGIES No known allergies. FAMILY HISTORY Noncontributory. REVIEW OF SYSTEMS He has bifocals. He has decreased hearing. No chest pain, palpitations. Respiratory: Recent upper respiratory tract infection better now, recent weight loss undefinied. He has had hematuria. He has pain in the penis. Musculoskeletal: Some arthritic pains. Neurologic: Generalized weakness. LABORATORY DATA Lytes, BUN, creatinine unremarkable except for a mild degree of renal failure with a BUN 17 and creatinine 1.27. PHYSICAL EXAMINATION GENERAL: An elderly gentleman [id number]. VITAL SIGNS: Blood pressure 115/70, respiratory rate 18, pulse 80, afebrile, 95% saturation. HEENT: Head is normocephalic. Sclerae and conjunctivae are normal. Oropharynx unremarkable. No adenopathy. HEART: Regular rhythm. LUNGS: Clear. ABDOMEN: Soft. No hepatosplenomegaly. EXTREMITIES: Trace edema. MUSCULOSKELETAL: Muscle wasting. NEUROLOGIC: Generalized weakness. The patient has a Delgado catheter with hematuria. ASSESSMENT The patient is an 81-year old male. He has had multiple malignancies. He has had a prostatectomy for prostate cancer. He had radiation therapy to the right lung in 2014 and has had no recurrence. He has a mantle cell lymphoma and was treated with bendamustine and Rituxan and is now on maintenance Rituxan. He presents with sepsis. I believe he has an underlying low white count as well. PLAN I contacted his oncologist, Dr. Meño Rebolledo, by phone this evening. We both feel that the immediate fall in the neutrophil count is due to the sepsis. I suspect that he has an underlying low white count due to his previous chemotherapy and radiation. He could possibly have an underlying myelodysplasia. At this point, I do not think there is anything else to do. Would recommend continued antibiotics. If the neutrophil count falls below 500 then would begin Neupogen. The patient will follow up with Dr. Meño Rebolledo following his discharge and I suspect that once the infection resolves, we will see an increase in the white cell count but not to a normal level given that he has had a low white count dating back to at least December of 2015 when it was recorded as 2400. If it continues to fall and the fall is sustained, he will need a bone marrow aspirate and biopsy. This will be done by Dr. Rebolledo. MD YAZMIN Torres/ /8:44 PM /9:09 PM ABDI
[2016-11-14] MEDS: ATENOLOL 25 MG TAB PO SCH (22:00)
[2016-11-14] MEDS: PRAVASTATIN SOD 20 MG TAB PO SCH (22:00)
[2016-11-15] MEDS: metroNIDAZOLE 500 MG TAB PO SCH ×5 (00:03→23:14)
[2016-11-15] MEDS: AZTREONAM INJ 1,000 MG in SODIUM CHLORIDE 0.9% INJ 100 ML IV SCH ×2 (02:43→14:03)
[2016-11-15] MEDS: D5-1/2 NS + KCL 20 MEQ INJ 1,000 ML IV SCH ×2 (02:43→11:53)
[2016-11-15 04:00] VITALS: BP 99/58; PULSE 73; RESP 18; TEMP 96.3; O2SAT 98
[2016-11-15] MEDS: CEFEPIME INJ 1,000 MG in SODIUM CHLORIDE 0.9% INJ 100 ML IV SCH ×2 (05:45→17:38)
[2016-11-15] MEDS: INSULIN ASPART SUPPLEMENTAL SCALE SQ SCH ×4 (05:53→21:00)
[2016-11-15 08:00] VITALS: BP 120/76; PULSE 97; RESP 17; TEMP 95.7; O2SAT 94
[2016-11-15] MEDS: PANTOPRAZOLE SOD 20 MG DELAYED RELEASE TAB PO SCH (08:51)
[2016-11-15] MEDS: DOCUSATE SODIUM 50 MG/SENNA 8.6 MG TAB PO SCH ×2 (08:51→21:00)
[2016-11-15] MEDS: SODIUM CHLORIDE 0.9% FLUSH 10 ML FLUSH IV FLUSH SCH ×2 (08:52→22:14)
[2016-11-15] MEDS: metFORMIN HCL 500 MG TAB PO SCH ×2 (08:52→17:38)
[2016-11-15] MEDS: PANTOPRAZOLE SODIUM 40 MG VIAL IV PUSH SCH ×2 (08:53→22:16)
[2016-11-15] MEDS: ACETAMINOPHEN/HYDROcodone 325 MG/5 MG TAB PO PRN (11:51)
[2016-11-15 12:00] VITALS: BP 107/66; PULSE 70; RESP 17; TEMP 96.3; O2SAT 100
--- NOTE | 2016-11-15 12:22 | HHI.IDPN ---
Note Infectious Disease Note Patient is awake and alert. Notes pain where the catheter enters the penis. Denies abdominal pain. Still having diarrhea. Afebrile. PAST MEDICAL HISTORY Prostate cancer. Recent prostate procedure on October 28 and subsequent placement of Delgado catheter. The patient had a Delgado catheter in place when he presented to the emergency department. Atrial fibrillation, hypertension, history of the CVA, diabetes mellitus, history of bladder cancer, diminished hearing, bladder cancer surgery, bilateral cataract surgery, prostatectomy. ALLERGIES NO KNOWN DRUG ALLERGIES. MEDICATIONS 1. Aztreonam. 2. Cefepime. 3. Metronidazole. SOCIAL HISTORY No tobacco or alcohol or illicit drugs. FAMILY HISTORY Noncontributory. OBJECTIVE: Vital Signs Date Time Temp Pulse Resp B/P Pulse Ox O2 Delivery O2 Flow Rate FiO2 11/15/16 08:00 95.7 97 17 120/76 94 11/15/16 04:00 96.3 73 18 99/58 98 11/14/16 20:00 96.5 95 18 157/69 95 11/14/16 16:00 96.9 89 17 115/69 95 Laboratory Tests Test 11/13/16 11/14/16 11/14/16 16:00 06:07 16:12 White Blood Count 1.5 TH/MM3 1.0 TH/MM3 1.3 TH/MM3 Red Blood Count 3.48 MIL/MM3 3.15 MIL/MM3 3.18 MIL/MM3 Hemoglobin 10.8 GM/DL 9.7 GM/DL 9.8 GM/DL Hematocrit 31.2 % 28.3 % 28.7 % Mean Corpuscular Volume 89.8 FL 89.7 FL 90.1 FL Mean Corpuscular Hemoglobin 30.9 PG 30.9 PG 30.6 PG Mean Corpuscular Hemoglobin 34.4 % 34.4 % 34.0 % Concent Red Cell Distribution Width 14.5 % 14.4 % 14.4 % Platelet Count 148 TH/MM3 107 TH/MM3 93 TH/MM3 Mean Platelet Volume 8.5 FL 8.5 FL 8.6 FL Neutrophils (%) (Auto) % % % Lymphocytes (%) (Auto) % % % Monocytes (%) (Auto) % % % Eosinophils (%) (Auto) % % % Basophils (%) (Auto) % % % Neutrophils # (Auto) TH/MM3 TH/MM3 TH/MM3 Lymphocytes # (Auto) TH/MM3 TH/MM3 TH/MM3 Monocytes # (Auto) TH/MM3 TH/MM3 TH/MM3 Eosinophils # (Auto) TH/MM3 TH/MM3 TH/MM3 Basophils # (Auto) TH/MM3 TH/MM3 TH/MM3 CBC Comment AUTO DIFF AUTO DIFF AUTO DIFF Differential Total Cells 100 100 100 Counted Neutrophils % (Manual) 53 % 66 % 46 % Band Neutrophils % 23 % 9 % 11 % Lymphocytes % 17 % 20 % 28 % Monocytes % 5 % 3 % 10 % Neutrophils # (Manual) 1.2 TH/MM3 0.8 TH/MM3 0.8 TH/MM3 Metamyelocytes 2 % 4 % Differential Comment FINAL DIFF FINAL DIFF FINAL DIFF MANUAL MANUAL MANUAL Toxic Granulation 1+ Platelet Estimate LOW LOW LOW Platelet Morphology Comment NORMAL NORMAL NORMAL Ovalocytes 1+ 1+ Acanthocytes OCC Keratocytes OCC Eosinophils % 2 % 1 % Tear Drop Cells 1+ Laboratory Tests Test 11/13/16 11/14/16 11/14/16 11/14/16 16:00 00:13 06:07 16:12 Sodium Level 136 MEQ/L 139 MEQ/L 139 MEQ/L Potassium Level 3.9 MEQ/L 3.3 MEQ/L 3.4 MEQ/L Chloride Level 102 MEQ/L 103 MEQ/L 106 MEQ/L Carbon Dioxide Level 22.9 MEQ/L 24.5 MEQ/L 23.1 MEQ/L Anion Gap 11 MEQ/L 12 MEQ/L 10 MEQ/L Blood Urea Nitrogen 21 MG/DL 18 MG/DL 17 MG/DL Creatinine 1.70 MG/DL 1.40 MG/DL 1.27 MG/DL Estimat Glomerular Filtration 39 ML/MIN 49 ML/MIN 54 ML/MIN Rate Random Glucose 123 MG/DL 151 MG/DL 132 MG/DL Lactic Acid Level 2.6 mmol/L 1.4 mmol/L 1.3 mmol/L Calcium Level 8.5 MG/DL 8.3 MG/DL 8.4 MG/DL Magnesium Level 2.0 MG/DL 2.0 MG/DL Total Bilirubin 0.6 MG/DL 0.5 MG/DL Aspartate Amino Transf 33 U/L 24 U/L (AST/SGOT) Alanine Aminotransferase 19 U/L 16 U/L (ALT/SGPT) Alkaline Phosphatase 51 U/L 46 U/L Total Creatine Kinase 433 U/L Creatine Kinase MB LESS THAN 0.5 NG/ML Creatine Kinase MB % 0.1 % Troponin I 0.07 NG/ML Total Protein 6.6 GM/DL 6.0 GM/DL Albumin 2.9 GM/DL 2.6 GM/DL Microbiology Date/Time Procedure Status Source Growth 11/13/16 16:00 Aerobic Blood Culture - Preliminary Resulted Blood Peripheral Enterobacter Species 11/13/16 16:00 Anaerobic Blood Culture - Preliminary Resulted Gram Negative Jasiel 11/13/16 16:20 Aerobic Blood Culture - Preliminary Resulted Blood Peripheral NO GROWTH IN 2 DAYS 11/13/16 16:20 Anaerobic Blood Culture - Preliminary Resulted Blood Peripheral NO GROWTH IN 2 DAYS 11/13/16 19:30 Urine Culture - Preliminary Resulted Urine Catheterized Urine Klebsiella Pneumoniae Gram Negative Jasiel 11/14/16 00:13 Aerobic Blood Culture Received Blood Peripheral Pending 11/14/16 00:13 Anaerobic Blood Culture Received Blood Peripheral Pending PHYSICAL EXAMINATION GENERAL: No acute distress. HEENT: Head atraumatic. No visible lesions. Extraocular movements grossly intact, pupils are reactive to light. No icterus. Oropharynx dry mucosa without lesions. NECK: Supple. No adenopathy. LUNGS: Clear to auscultation. HEART: Irregular S1-S2. No audible murmurs. No rubs or gallops. ABDOMEN: Soft, no tenderness. EXTREMITIES: No clubbing or cyanosis or edema. SKIN: The skin appears pale. No rash. The skin is warm and dry. NEURO: No gross focal findings. PSYCHIATRIC: Calm and cooperative. IMPRESSION 1. Gram-negative sepsis. Enterobacter and gram negative. 2. Urinary tract infection klebsiella and gram negative. 3. Neutropenia. 4. Thrombocytopenia. Patient with severe sepsis indicated by the increased lactic acid, elevated heart rate, acute renal failure, neutropenia. RECOMMENDATIONS 1. Continue cefepime. 2. Continue Azactam. 3. Continue metronidazole oral. 4. Monitor blood cultures and identity of second gram negative bacteria in blood and urine. 5. Monitor blood counts. 6. Monitor renal function. 7. Monitor clinical response. Jese Cardona MD Nov 15, 2016 12:22
--- NOTE | 2016-11-15 13:12 | PD.ONC.PN ---
Subjective Subjective Remarks Afebrile overnight. Patient complaining of penile pain. No other complaints. Objective Data Date Time Temp Pulse Resp B/P Pulse Ox O2 Delivery O2 Flow Rate FiO2 11/15/16 12:00 96.3 70 17 107/66 100 11/15/16 08:00 95.7 97 17 120/76 94 11/15/16 04:00 96.3 73 18 99/58 98 11/14/16 20:00 96.5 95 18 157/69 95 11/14/16 16:00 96.9 89 17 115/69 95 Result Diagram: 11/14/16 1612 11/14/16 1612 Laboratory Results Laboratory Tests Test 11/14/16 16:12 White Blood Count 1.3 TH/MM3 Red Blood Count 3.18 MIL/MM3 Hemoglobin 9.8 GM/DL Hematocrit 28.7 % Mean Corpuscular Volume 90.1 FL Mean Corpuscular Hemoglobin 30.6 PG Mean Corpuscular Hemoglobin 34.0 % Concent Red Cell Distribution Width 14.4 % Platelet Count 93 TH/MM3 Mean Platelet Volume 8.6 FL Neutrophils (%) (Auto) % Lymphocytes (%) (Auto) % Monocytes (%) (Auto) % Eosinophils (%) (Auto) % Basophils (%) (Auto) % Neutrophils # (Auto) TH/MM3 Lymphocytes # (Auto) TH/MM3 Monocytes # (Auto) TH/MM3 Eosinophils # (Auto) TH/MM3 Basophils # (Auto) TH/MM3 CBC Comment AUTO DIFF Differential Total Cells 100 Counted Neutrophils % (Manual) 46 % Band Neutrophils % 11 % Lymphocytes % 28 % Monocytes % 10 % Eosinophils % 1 % Neutrophils # (Manual) 0.8 TH/MM3 Metamyelocytes 4 % Differential Comment FINAL DIFF MANUAL Platelet Estimate LOW Platelet Morphology Comment NORMAL Tear Drop Cells 1+ Ovalocytes 1+ Sodium Level 139 MEQ/L Potassium Level 3.4 MEQ/L Chloride Level 106 MEQ/L Carbon Dioxide Level 23.1 MEQ/L Anion Gap 10 MEQ/L Blood Urea Nitrogen 17 MG/DL Creatinine 1.27 MG/DL Estimat Glomerular Filtration 54 ML/MIN Rate Random Glucose 132 MG/DL Calcium Level 8.4 MG/DL Magnesium Level 2.0 MG/DL Culture Results Microbiology Date/Time Procedure Status Source Growth 11/13/16 16:00 Aerobic Blood Culture - Preliminary Resulted Blood Peripheral Enterobacter Species 11/13/16 16:00 Anaerobic Blood Culture - Preliminary Resulted Gram Negative Jasiel 11/13/16 16:20 Aerobic Blood Culture - Preliminary Resulted Blood Peripheral NO GROWTH IN 2 DAYS 11/13/16 16:20 Anaerobic Blood Culture - Preliminary Resulted Blood Peripheral NO GROWTH IN 2 DAYS 11/13/16 19:30 Urine Culture - Preliminary Resulted Urine Catheterized Urine Klebsiella Pneumoniae Gram Negative Jasiel 11/14/16 00:13 Aerobic Blood Culture Received Blood Peripheral Pending 11/14/16 00:13 Anaerobic Blood Culture Received Blood Peripheral Pending Administered Medications Medications (Trade) Dose Ordered Sig/[place] Route PRN Reason Start Time Stop Time Status Last Admin Dose Admin Potassium Chloride/Dextrose/ Sod Cl (D5-1/2 NS + KCl 20 Meq Inj) 1,000 ml @ 50 mls/hr Q20H IV 11/13/16 20:17 11/15/16 11:53 Sodium Chloride (NS Flush) 2 ml BID IV FLUSH 11/13/16 21:00 11/14/16 22:00 Atenolol (Tenormin) 5 mg HS PO 11/13/16 21:00 11/14/16 22:00 Acetaminophen/ Hydrocodone Bitart ([place] 5-325 Mg) 1 tab Q8H PRN PO PAIN GREATER THAN/EQUAL TO 5 11/13/16 20:30 11/15/16 11:51 Pravastatin Sodium (Pravachol) 60 mg HS PO 11/14/16 21:00 11/14/16 22:00 Metformin HCl 500 mg 500 mg BIDPC PO 11/14/16 09:00 11/15/16 08:52 Cefepime HCl/ Sodium Chloride (Maxipime Inj/NS Inj) 100 ml @ 200 mls/hr Q12H IV 11/14/16 06:00 11/15/16 05:45 Pantoprazole Sodium (Protonix Inj) 40 mg Q12H IV PUSH 11/14/16 08:00 11/15/16 08:53 Metronidazole 500 mg 500 mg Q6HR PO 11/14/16 12:00 11/15/16 11:40 Aztreonam/Sodium Chloride (Azactam Inj/NS Inj) 100 ml @ 200 mls/hr Q12H IV 11/14/16 14:00 11/15/16 02:43 Objective Remarks GENERAL: elderly male supine in bed in nad. SKIN: Warm and dry. HEAD: Normocephalic. EYES: no injection or drainage. NECK: Supple, trachea midline. CARDIOVASCULAR: +S1/S2 RESPIRATORY: anterior trejo clear. GASTROINTESTINAL: Abdomen soft, non-tender, nondistended. EXTREMITIES: No cyanosis NEUROLOGICAL: awake and alert, normal speech. Assessment/Plan Assessment 81y/o male with multiple malignancies, admitted with sepsis Hematology consulted h/o prostatectomy for prostate cancer. --h/o mantle cell lymphoma-->treated with bendamustine and Rituxan-->now on maintenance Rituxan. --patient of Dr. Rebolledo Plan 1. agree with urology consult placed by primary--await consult 2. Aworeyqhsuk=[id number] today. afebrile overnight. expect this is due to sepsis as well as previous chemo/XRT. 3. continue to monitor the neutrophil count, if it falls to less than 500 recommend starting Neupogen Attending Statement The exam, history, and the medical decision-making described in the above note were completed with the assistance of the mid-level provider. I reviewed and agree with the findings presented. I attest that I had a [id number] encounter with the patient on the same day, and personally performed and documented my assessment and findings in the medical record. major complaint is pain in the penis and to be seen by urology. expect that WBC will improve modestly but not become normal due to previous chemotherapy, radiation therapy etc. Once infection resolved he will follow up with Dr. Rebolledo who is aware of current events and can determine if further evaluation of low wbc is necessary. check cbc plat in am. Carrie Jackson Nov 15, 2016 13:12 Wallace Pleitez MD Nov 15, 2016 17:36
[2016-11-15 13:46] LABS: AUTOMATED NEUTROPHIL # 0.8 TH/MM3 (1.8-7.7); BASOPHIL % 0.6 % (0.0-2.0); EOSINOPHIL # 0.1 TH/MM3 (0-0.4); HEMATOCRIT 28.2 % (39.0-51.0); LYMPH % 27.5 % (9.0-44.0); LYMPHOCYTE # 0.4 TH/MM3 (1.0-4.8); MEAN CELL VOLUME 89.5 FL (80.0-100.0); MEAN CORPUSCULAR HEMOGLOBIN 30.9 PG (27.0-34.0); MEAN CORPUSCULAR HGB CONC 34.5 % (32.0-36.0); MONO % 9.8 % (0.0-8.0); NEUT % 58.1 % (16.0-70.0); PLATELET COUNT 109 TH/MM3 (150-450); RED BLOOD COUNT 3.15 MIL/MM3 (4.50-5.90); RED CELL DISTRIBUTION WIDTH 14.5 % (11.6-17.2); WHITE BLOOD COUNT 1.4 TH/MM3 (4.0-11.0)
[2016-11-15 13:47] LABS: HEMO FLAGS AUTO DIFF
[2016-11-15 13:55] LABS: INTERNATIONAL NORMALIZED RATIO 2.2 RATIO
[2016-11-15 14:03] LABS: BICARBONATE 21.7 MEQ/L (21.0-32.0); POTASSIUM 3.3 MEQ/L (3.5-5.1)
[2016-11-15 14:37] LABS: BANDS 3 % (0-6); BURR CELLS 1+ (NORMAL); EOSINOPHILS 6 % (0-4); METAMYELOCYTES 3 % (0-1); MYELOCYTES 2 % (0-0); NEUTROPHIL # MANUAL DIFF 0.9 TH/MM3 (1.8-7.7); OVALOCYTES 1+ (NORMAL); POLYS (SEG NEUTROPHILS) 55 % (16-70); WBC DIFF SAMPLE 100
[2016-11-15 14:38] LABS: PLATELET ESTIMATE SMEAR LOW (NORMAL); PLATELET MORPHOLOGY NORMAL (NORMAL)
[2016-11-15 14:39] LABS: SCAN/DIFF FINAL DIFF MANUAL
[2016-11-15 16:24] VITALS: BP 119/65; PULSE 75; RESP 17; TEMP 96; O2SAT 99
--- NOTE | 2016-11-15 17:19 | RADRPT ---
EXAM DATE/TIME: 11/15/2016 16:52 [facility] COMPARISON: CT THORAX W/O CONTRAST, June 12, 2014, 14:08. CHEST SINGLE AP, November 13, 2016, 18:15. INDICATIONS : Chest discomfort, shortness of breath MEDICAL HISTORY : None. SURGICAL HISTORY : None. ENCOUNTER: Initial ACUITY: 1 day PAIN SCORE: 0/10 LOCATION: Bilateral chest FINDINGS: There is atelectasis in the right mid lung and questionable mass in right infrahilar location. Heart and mediastinum are unremarkable for technique. CONCLUSION: Possible mass in right infrahilar location and further characterization with chest CT with intravenou s contrast is recommended. Dona Erickson MD on November 15, 2016 at 17:16 Board Certified Radiologist. This report was verified electronically.
--- NOTE | 2016-11-15 19:30 | HHI.PR ---
Subjective Remarks He is lying in bed and resting at this time. He feels that the stools are getting a bit better as they are less frequent and not as watery. He denies any fever or chills. He is still with some urinary complaints of urgency, frequency and loss of control of urine passage. He appears to be tolerating the current regimen of medications well. Objective - Vital Signs Date Time Temp Pulse Resp B/P Pulse Ox O2 Delivery O2 Flow Rate FiO2 11/15/16 16:24 96.0 75 17 119/65 99 11/15/16 12:51 18 11/15/16 12:00 96.3 70 17 107/66 100 11/15/16 08:00 95.7 97 17 120/76 94 11/15/16 04:00 96.3 73 18 99/58 98 11/14/16 20:00 96.5 95 18 157/69 95 I/O 11/14/16 11/14/16 11/14/16 11/15/16 11/15/16 11/15/16 07:00 15:00 23:00 07:00 15:00 23:00 Intake Total 240 ml 1080 ml 658 ml 1086 ml 1571 ml Output Total 500 ml 400 ml 300 ml 400 ml Balance -260 ml 680 ml 658 ml 786 ml 1171 ml Intake Oral 240 ml 1080 ml 720 ml IV Total 658 ml 1086 ml 851 ml Output Urine Total 500 ml 400 ml 300 ml 400 ml # Bowel Movements 3 2 1 3 4 Result Diagram: 11/15/16 1317 11/15/16 1317 Objective Remarks GENERAL: Alert and oriented. SKIN: Warm and dry. HEAD: Normocephalic. Atraumatic. EYES: No scleral icterus. No injection or drainage. NECK: Supple, trachea midline. No JVD or lymphadenopathy. CARDIOVASCULAR: Regular rate and rhythm without murmurs, gallops, or rubs. RESPIRATORY: Breath sounds are mildly distant, but appear equal bilaterally. No accessory muscle use. GASTROINTESTINAL: Abdomen soft, non-tender, nondistended. The bowel sounds are mildly hyperactive. MUSCULOSKELETAL: Good range of motion. No cyanosis, or edema. BACK: Nontender without obvious deformity. No CVA tenderness. A/P Assessment and Plan ASSESSMENT 1. Acute Neutropenic Sepsis. 2. Hypotension. 3. Urinary Tract Infection, on admission. 4. C. Difficile Colitis. 5. Anemia with Thrombocytopenia. 6. Prostate Cancer. 7. Bladder Cancer. 8. Right Lung Cancer. 9. Mantle Cell Lymphoma, Stage 4B. 10. Diabetes Mellitus, Type 2. 11. Hypertension. 12. Hyperlipidemia. PLAN 1. Continue his activity as tolerated. 2. Blood and Urine Culture results to be followed. 3. Hematology and Infectious Disease follow. 4. Urology to see him. 5. Continue intravenous hydration with electrolyte repletion. 6. Continue with intravenous antibiotics. 7. DVT, PE and PUD prophylaxis. Quang Mcdonough MD Nov 15, 2016 19:29
[2016-11-15 20:00] VITALS: BP 106/56; PULSE 81; RESP 20; TEMP 97.3; O2SAT 99
[2016-11-15] MEDS ORDERED: POTASSIUM CHLORIDE 20 MEQ CONTROLLED RELEASE TAB PO ONE (20:00)
[2016-11-15] MEDS: PRAVASTATIN SOD 20 MG TAB PO SCH (22:17)
[2016-11-15] MEDS: ATENOLOL 25 MG TAB PO SCH (22:19)
[2016-11-16] VITALS: BP 116/66; PULSE 77; RESP 18; TEMP 97.6; O2SAT 98
[2016-11-16] MEDS: AZTREONAM INJ 1,000 MG in SODIUM CHLORIDE 0.9% INJ 100 ML IV SCH ×2 (02:00→14:24)
[2016-11-16] MEDS: INSULIN ASPART SUPPLEMENTAL SCALE SQ SCH ×4 (06:27→21:00)
[2016-11-16] MEDS: metroNIDAZOLE 500 MG TAB PO SCH ×4 (06:27→23:22)
[2016-11-16] MEDS: CEFEPIME INJ 1,000 MG in SODIUM CHLORIDE 0.9% INJ 100 ML IV SCH ×2 (06:27→17:35)
[2016-11-16 08:00] VITALS: BP 121/75; PULSE 86; RESP 15; TEMP 98.9; O2SAT 100
[2016-11-16 08:11] LABS: BICARBONATE 21.7 MEQ/L (21.0-32.0); POTASSIUM 3.7 MEQ/L (3.5-5.1)
[2016-11-16 08:14] LABS: INDIRECT BILIRUBIN 0.3 MG/DL (0.0-0.8); TOTAL BILIRUBIN ADULT 0.5 MG/DL (0.2-1.0)
[2016-11-16 08:20] LABS: HEMATOCRIT 26.3 % (39.0-51.0); MEAN CELL VOLUME 89.7 FL (80.0-100.0); MEAN CORPUSCULAR HGB CONC 35.6 % (32.0-36.0); PLATELET COUNT 112 TH/MM3 (150-450); RED BLOOD COUNT 2.93 MIL/MM3 (4.50-5.90); WHITE BLOOD COUNT 1.7 TH/MM3 (4.0-11.0)
[2016-11-16 08:21] LABS: HEMO FLAGS AUTO DIFF
[2016-11-16] MEDS: SODIUM CHLORIDE 0.9% FLUSH 10 ML FLUSH IV FLUSH SCH ×2 (08:25→21:00)
[2016-11-16] MEDS: PANTOPRAZOLE SODIUM 40 MG VIAL IV PUSH SCH ×2 (08:25→21:12)
[2016-11-16] MEDS: D5-1/2 NS + KCL 20 MEQ INJ 1,000 ML IV SCH (08:25)
[2016-11-16] MEDS: PANTOPRAZOLE SOD 20 MG DELAYED RELEASE TAB PO SCH (08:28)
[2016-11-16] MEDS: DOCUSATE SODIUM 50 MG/SENNA 8.6 MG TAB PO SCH ×2 (08:28→21:00)
[2016-11-16] MEDS: metFORMIN HCL 500 MG TAB PO SCH ×2 (08:37→17:26)
[2016-11-16 09:41] LABS: BANDS 6 % (0-6); DOHLE BODIES PRESENT (NONE SEEN); EOSINOPHILS 4 % (0-4); NEUTROPHIL # MANUAL DIFF 1.1 TH/MM3 (1.8-7.7); PLATELET ESTIMATE SMEAR LOW (NORMAL); PLATELET MORPHOLOGY NORMAL (NORMAL); POLYS (SEG NEUTROPHILS) 61 % (16-70); SCAN/DIFF FINAL DIFF MANUAL; WBC DIFF SAMPLE 100
[2016-11-16 09:43] LABS: OVALOCYTES 1+ (NORMAL)
[2016-11-16] MEDS ORDERED: IOHEXOL 350 MG/ML 10 ML VIAL (for RAD DIAG) IV ONE (10:12)
--- NOTE | 2016-11-16 10:46 | RADRPT ---
EXAM DATE/TIME: 11/16/2016 10:01 [facility] COMPARISON: CT SIMULATION, September 12, 2014, 14:17. CT NEEDLE BIOPSY LUNG, RIGHT, August 23, 2014, 12:08. CT THORAX W/O CONTRAST, June 12, 2014, 14:08. RIBS LEFT(W PA CXR MIN 3VWS), September 25, 2015, 5:02. CHEST SIN GLE AP, November 13, 2016, 18:15. CHEST PA & LAT, November 15, 2016, 16:52. INDICATIONS : Evaluate for mass. IV CONTRAST: 100 cc Omnipaque 350 (iohexol) IV RADIATION DOSE: 9.46 CTDIvol (mGy) MEDICAL HISTORY : Stroke. Carcinoma, prostate. SURGICAL HISTORY : None. ENCOUNTER: Initial ACUITY: 1 day PAIN SCALE: 4/10 LOCATION: Bilateral chest TECHNIQUE: Volumetric scanning of the chest was performed. Using automated exposure control and adjustment of t mA and/or kV according to patient size, radiation dose was kept as low as reasonably achievable to obtain optimal diagnostic quality images. DICOM format image data is available electronically for review and comparison. Follow-up recommendations for incidentally detected pulmonary nodules are based at a minimum on nodul e size and patient risk factors according to Fleischner Society Guidelines. FINDINGS: LUNGS: Subsegmental opacity with loss of volume is identified in the right lower lobe. The patient appears t o have undergone radiation treatment for a right lung mass. Chest radiograph performed on 09/25/2015 i s unchanged compared to the current chest radiograph. Focal bronchiectasis is associated with the [facility]. Emphysematous changes are identified in both lungs. Small peripheral scarring is identified in t he right and left lung bases. PLEURA: There is no pleural thickening or pleural effusion. MEDIASTINUM: The heart and great vessels demonstrate no acute abnormality. There is no mediastinal or hilar lymph adenopathy. AXILLAE: Within normal limits. No lymphadenopathy. SKELETAL: Within normal limits for patient age. MISCELLANEOUS: The visualized upper abdominal organs demonstrate no acute abnormality. CONCLUSION: Right lower lobe opacity with associated volume loss and bronchiectasis. Plain radiographs appearance has been stable since September of 2015. The patient appears have undergone radiation therapy cyst there i s a documented CT simulation. These changes likely represent post treatment scarring. If the patient has not undergone radiation treatment then further evaluation is to be considered. COPD No other pulmonary abnormalities. Paul Inman MD on November 16, 2016 at 10:34 Board Certified Radiologist. This report was verified electronically.
--- NOTE | 2016-11-16 10:58 | PD.ONC.PN ---
Subjective Subjective Remarks Afebrile overnight. Pt states his penile pain is improved Feeling somewhat dizzy today Objective Data Date Time Temp Pulse Resp B/P Pulse Ox O2 Delivery O2 Flow Rate FiO2 11/16/16 00:00 97.6 77 18 116/66 98 11/15/16 20:00 97.3 81 20 106/56 99 11/15/16 16:24 96.0 75 17 119/65 99 11/15/16 12:51 18 11/15/16 12:00 96.3 70 17 107/66 100 Result Diagram: 11/16/16 0736 11/16/16 0736 Laboratory Results Laboratory Tests Test 11/15/16 11/16/16 13:17 07:36 White Blood Count 1.4 TH/MM3 1.7 TH/MM3 Red Blood Count 3.15 MIL/MM3 2.93 MIL/MM3 Hemoglobin 9.7 GM/DL 9.4 GM/DL Hematocrit 28.2 % 26.3 % Mean Corpuscular Volume 89.5 FL 89.7 FL Mean Corpuscular Hemoglobin 30.9 PG 32.0 PG Mean Corpuscular Hemoglobin 34.5 % 35.6 % Concent Red Cell Distribution Width 14.5 % 15.0 % Platelet Count 109 TH/MM3 112 TH/MM3 Mean Platelet Volume 9.0 FL 9.8 FL Neutrophils (%) (Auto) 58.1 % % Lymphocytes (%) (Auto) 27.5 % % Monocytes (%) (Auto) 9.8 % % Eosinophils (%) (Auto) 4.0 % % Basophils (%) (Auto) 0.6 % % Neutrophils # (Auto) 0.8 TH/MM3 TH/MM3 Lymphocytes # (Auto) 0.4 TH/MM3 TH/MM3 Monocytes # (Auto) 0.1 TH/MM3 TH/MM3 Eosinophils # (Auto) 0.1 TH/MM3 TH/MM3 Basophils # (Auto) 0.0 TH/MM3 TH/MM3 CBC Comment AUTO DIFF AUTO DIFF Differential Total Cells 100 100 Counted Neutrophils % (Manual) 55 % 61 % Band Neutrophils % 3 % 6 % Lymphocytes % 28 % 22 % Monocytes % 3 % 7 % Eosinophils % 6 % 4 % Neutrophils # (Manual) 0.9 TH/MM3 1.1 TH/MM3 Metamyelocytes 3 % Myelocytes 2 % Differential Comment FINAL DIFF FINAL DIFF MANUAL MANUAL Platelet Estimate LOW LOW Platelet Morphology Comment NORMAL NORMAL Ovalocytes 1+ 1+ [place] Cells 1+ Prothrombin Time 25.0 SEC Prothromb Time International 2.2 RATIO Ratio Sodium Level 138 MEQ/L 141 MEQ/L Potassium Level 3.3 MEQ/L 3.7 MEQ/L Chloride Level 108 MEQ/L 111 MEQ/L Carbon Dioxide Level 21.7 MEQ/L 21.7 MEQ/L Anion Gap 8 MEQ/L 8 MEQ/L Blood Urea Nitrogen 17 MG/DL 16 MG/DL Creatinine 1.23 MG/DL 1.18 MG/DL Estimat Glomerular Filtration 56 ML/MIN 59 ML/MIN Rate Random Glucose 135 MG/DL 146 MG/DL Calcium Level 8.3 MG/DL 8.1 MG/DL Magnesium Level 2.0 MG/DL Dohle Bodies PRESENT Total Bilirubin 0.5 MG/DL Direct Bilirubin 0.2 MG/DL Indirect Bilirubin 0.3 MG/DL Aspartate Amino Transf 23 U/L (AST/SGOT) Alanine Aminotransferase 16 U/L (ALT/SGPT) Alkaline Phosphatase 48 U/L Total Protein 5.6 GM/DL Albumin 2.4 GM/DL Culture Results Microbiology Date/Time Procedure Status Source Growth 11/13/16 16:00 Aerobic Blood Culture - Preliminary Resulted Blood Peripheral Enterobacter Species 11/13/16 16:00 Anaerobic Blood Culture - Preliminary Resulted Gram Negative Jasiel 11/13/16 16:20 Aerobic Blood Culture - Preliminary Resulted Blood Peripheral NO GROWTH IN 2 DAYS 11/13/16 16:20 Anaerobic Blood Culture - Preliminary Resulted Blood Peripheral NO GROWTH IN 2 DAYS 11/13/16 19:30 Urine Culture - Preliminary Resulted Urine Catheterized Urine Klebsiella Pneumoniae Gram Negative Jasiel 11/14/16 00:13 Aerobic Blood Culture Received Blood Peripheral Pending 11/14/16 00:13 Anaerobic Blood Culture Received Blood Peripheral Pending Administered Medications Medications (Trade) Dose Ordered Sig/[place] Route PRN Reason Start Time Stop Time Status Last Admin Dose Admin Potassium Chloride/Dextrose/ Sod Cl (D5-1/2 NS + KCl 20 Meq Inj) 1,000 ml @ 50 mls/hr Q20H IV 11/13/16 20:17 11/16/16 08:25 Sodium Chloride (NS Flush) 2 ml BID IV FLUSH 11/13/16 21:00 11/16/16 08:25 Atenolol (Tenormin) 5 mg HS PO 11/13/16 21:00 11/15/16 22:19 Acetaminophen/ Hydrocodone Bitart ([place] 5-325 Mg) 1 tab Q8H PRN PO PAIN GREATER THAN/EQUAL TO 5 11/13/16 20:30 11/15/16 11:51 Pravastatin Sodium (Pravachol) 60 mg HS PO 11/14/16 21:00 11/15/16 22:17 Metformin HCl 500 mg 500 mg BIDPC PO 11/14/16 09:00 11/16/16 08:37 Cefepime HCl/ Sodium Chloride (Maxipime Inj/NS Inj) 100 ml @ 200 mls/hr Q12H IV 11/14/16 06:00 11/16/16 06:27 Pantoprazole Sodium (Protonix Inj) 40 mg Q12H IV PUSH 11/14/16 08:00 11/16/16 08:25 Metronidazole 500 mg 500 mg Q6HR PO 11/14/16 12:00 11/16/16 06:27 Aztreonam/Sodium Chloride (Azactam Inj/NS Inj) 100 ml @ 200 mls/hr Q12H IV 11/14/16 14:00 11/16/16 02:00 Objective Remarks GENERAL: Elderly male sitting up in bed in no acute distress SKIN: Warm and dry. HEAD: Normocephalic. EYES: no injection or drainage. NECK: Supple, trachea midline. CARDIOVASCULAR: +S1/S2. No murmur. RESPIRATORY: Clear anteriorly. Breathing unlabored. GASTROINTESTINAL: Abdomen soft, non-tender, nondistended. EXTREMITIES: No cyanosis. No edema NEUROLOGICAL: Awake and alert, normal speech. Moving all extremities Assessment/Plan Problem List: (1) Neutropenia Status: Acute Plan: -- ANC 1100 today -- Neutropenia likely due to chemotherapy/infection. (2) Sepsis Status: Acute Plan: -- Klebsiella Pneumoniae in urine and blood -- Currently on cefepime, Flagyl and Azactam -- ID following Assessment 81y/o male with multiple malignancies, admitted with sepsis Hematology consulted h/o prostatectomy for prostate cancer. --h/o mantle cell lymphoma-->treated with bendamustine and Rituxan-->now on maintenance Rituxan. --patient of Dr. Rebolledo Plan 1. Await urology consult 2. ANC improved to 1100 today. 3. Hold off on Neupogen unless ANC < 500. 4. Continue antibiotics per ID. Attending Statement The exam, history, and the medical decision-making described in the above note were completed with the assistance of the mid-level provider. I reviewed and agree with the findings presented. I attest that I had a [id number] encounter with the patient on the same day, and personally performed and documented my assessment and findings in the medical record. Problem Qualifiers (1) Sepsis: Qualified Code: A41.9 - Sepsis, due to unspecified organism Ellen Lockett Nov 16, 2016 10:58 Fidencio Holt MD Nov 17, 2016 00:50
[2016-11-16 12:00] VITALS: BP 119/59; PULSE 76; RESP 24; TEMP 96.2; O2SAT 100
[2016-11-16] MEDS: ACETAMINOPHEN/HYDROcodone 325 MG/5 MG TAB PO PRN (14:27)
--- NOTE | 2016-11-16 19:34 | HHI.PR ---
Subjective Remarks He is lying in the bed and eating his dinner meal. He states that his stool is still loose, but he is having less bowel movements. He appears to be tolerating the current medication regimen. Objective - Vital Signs Date Time Temp Pulse Resp B/P Pulse Ox O2 Delivery O2 Flow Rate FiO2 11/16/16 15:27 30 11/16/16 12:00 96.2 76 24 119/59 100 11/16/16 08:00 98.9 86 15 121/75 100 11/16/16 00:00 97.6 77 18 116/66 98 11/15/16 20:00 97.3 81 20 106/56 99 I/O 11/15/16 11/15/16 11/15/16 11/16/16 11/16/16 11/16/16 07:00 15:00 23:00 07:00 15:00 23:00 Intake Total 1086 ml 1571 ml 780 ml 546 ml 373 ml Output Total 300 ml 400 ml 350 ml 550 ml Balance 786 ml 1171 ml 430 ml -4 ml 373 ml Intake Oral 720 ml 780 ml 240 ml IV Total 1086 ml 851 ml 306 ml 373 ml Output Urine Total 300 ml 400 ml 350 ml 550 ml # Bowel Movements 3 4 6 5 Result Diagram: 11/16/1636 11/16/16735 Objective Remarks GENERAL: Alert and oriented and in no acute distress. Appears a bit despondent. SKIN: Warm and dry. HEAD: Normocephalic and atraumatic. EYES: No scleral icterus. No injection or drainage. NECK: Supple, trachea midline. No JVD or lymphadenopathy. CARDIOVASCULAR: Regular rate and rhythm without murmurs, gallops, or rubs. RESPIRATORY: Breath sounds equal bilaterally. No accessory muscle use. GASTROINTESTINAL: Abdomen soft, non-tender, nondistended. Bowel sounds are again mildly hyperactive. MUSCULOSKELETAL: No cyanosis, or edema. BACK: Nontender without obvious deformity. No CVA tenderness. A/P Assessment and Plan ASSESSMENT 1. Acute Neutropenic Sepsis. 2. Hypotension. 3. Urinary Tract Infection, on admission. 4. C. Difficile Colitis. 5. Anemia with Thrombocytopenia. 6. Prostate Cancer. 7. Bladder Cancer. 8. Right Lung Cancer. 9. Mantle Cell Lymphoma, Stage 4B. 10. Diabetes Mellitus, Type 2. 11. Hypertension. 12. Hyperlipidemia. PLAN 1. I encouraged him to increase activity out of bed as tolerated. 2. Blood and Urine Culture results to be followed. 3. Hematology and Infectious Disease follow. 4. Urology to see him. 5. Continue intravenous hydration with electrolyte repletion. 6. Continue with intravenous antibiotics. 7. DVT, PE and PUD prophylaxis. Quang Mcdonough MD Nov 16, 2016 19:34
[2016-11-16 20:00] VITALS: BP 97/55; PULSE 72; RESP 18; TEMP 97.4; O2SAT 97
[2016-11-16] MEDS ORDERED: PHARMACY ORDERED LAB ONE (20:45)
[2016-11-16] MEDS: ATENOLOL 25 MG TAB PO SCH (21:00)
[2016-11-16] MEDS: PRAVASTATIN SOD 20 MG TAB PO SCH (21:12)
[2016-11-16] MEDS: ALPRAZolam 0.25 MG TAB PO SCH (21:12)
[2016-11-17] VITALS: BP 131/68; PULSE 83; RESP 18; TEMP 97.9; O2SAT 97
[2016-11-17] MEDS: AZTREONAM INJ 1,000 MG in SODIUM CHLORIDE 0.9% INJ 100 ML IV SCH ×2 (01:29→14:29)
[2016-11-17] MEDS: metroNIDAZOLE 500 MG TAB PO SCH ×4 (04:38→23:28)
[2016-11-17] MEDS: CEFEPIME INJ 1,000 MG in SODIUM CHLORIDE 0.9% INJ 100 ML IV SCH ×2 (04:38→17:45)
[2016-11-17] MEDS: INSULIN ASPART SUPPLEMENTAL SCALE SQ SCH ×4 (04:40→22:07)
[2016-11-17 08:00] VITALS: BP 114/60; PULSE 73; RESP 28; TEMP 97.6; O2SAT 99
[2016-11-17] MEDS: PANTOPRAZOLE SODIUM 40 MG VIAL IV PUSH SCH ×2 (08:00→20:37)
[2016-11-17] MEDS: PANTOPRAZOLE SOD 20 MG DELAYED RELEASE TAB PO SCH (08:12)
[2016-11-17] MEDS: DOCUSATE SODIUM 50 MG/SENNA 8.6 MG TAB PO SCH ×2 (08:13→20:38)
[2016-11-17] MEDS: SODIUM CHLORIDE 0.9% FLUSH 10 ML FLUSH IV FLUSH SCH ×2 (08:13→20:38)
[2016-11-17] MEDS: metFORMIN HCL 500 MG TAB PO SCH ×2 (08:13→17:49)
--- NOTE | 2016-11-17 09:06 | HHI.PR ---
Subjective Remarks He is again lying in bed. He is encouraged to sit up as much as possible today. He reports feeling some better and is having less loose bowel movements. He also appears to be tolerating the current medication regimen well. Objective - Vital Signs Date Time Temp Pulse Resp B/P Pulse Ox O2 Delivery O2 Flow Rate FiO2 11/17/16 00:00 97.9 83 18 131/68 97 11/16/16 20:00 97.4 72 18 97/55 97 11/16/16 15:27 30 11/16/16 12:00 96.2 76 24 119/59 100 I/O 11/16/16 11/16/16 11/16/16 11/17/16 11/17/16 11/17/16 07:00 15:00 23:00 07:00 15:00 23:00 Intake Total 546 ml 1853 ml 735 ml 729 ml Output Total 550 ml 1150 ml 550 ml 675 ml Balance -4 ml 703 ml 185 ml 54 ml Intake Oral 240 ml 1480 ml 240 ml 240 ml IV Total 306 ml 373 ml 495 ml 489 ml Output Urine Total 550 ml 1150 ml 550 ml 675 ml # Bowel Movements 5 5 2 3 Result Diagram: 11/16/16 0736 11/16/16 0736 Objective Remarks GENERAL: Alert an in no distress. SKIN: Warm and dry. HEAD: Normocephalic and atraumatic. EYES: No scleral icterus. No injection or drainage. NECK: Supple, trachea midline. No JVD or lymphadenopathy. CARDIOVASCULAR: Regular rate and rhythm without murmurs, gallops, or rubs. RESPIRATORY: Breath sounds equal bilaterally. No accessory muscle use. GASTROINTESTINAL: Abdomen soft, non-tender, nondistended. Bowel sounds are less hyperactive today. MUSCULOSKELETAL: No cyanosis, or edema. BACK: Nontender without obvious deformity. No CVA tenderness. A/P Assessment and Plan ASSESSMENT 1. Acute Neutropenic Sepsis-improving. 2. Hypotension-resolved. 3. Urinary Tract Infection, on admission. 4. C. Difficile Colitis-appears improving. 5. Anemia with Thrombocytopenia. 6. Prostate Cancer. 7. Bladder Cancer. 8. Right Lung Cancer. 9. Mantle Cell Lymphoma, Stage 4B. 10. Diabetes Mellitus, Type 2. 11. Hypertension. 12. Hyperlipidemia. PLAN 1. I encouraged him again to increase activity out of bed as tolerated. 2. Blood and Urine Culture results are followed. 3. Hematology and Infectious Disease follow. 4. Urology still to see him. 5. Encouraged good oral hydration. 6. Continue with intravenous and oral antibiotics. 7. DVT, PE and PUD prophylaxis. Quang Mcdonough MD Nov 17, 2016 09:06
[2016-11-17 10:07] LABS: HEMATOCRIT 29.3 % (39.0-51.0); MEAN CELL VOLUME 89.9 FL (80.0-100.0); MEAN CORPUSCULAR HEMOGLOBIN 31.3 PG (27.0-34.0); MEAN CORPUSCULAR HGB CONC 34.8 % (32.0-36.0); PLATELET COUNT 103 TH/MM3 (150-450); RED BLOOD COUNT 3.26 MIL/MM3 (4.50-5.90); RED CELL DISTRIBUTION WIDTH 14.6 % (11.6-17.2); WHITE BLOOD COUNT 1.4 TH/MM3 (4.0-11.0)
[2016-11-17 10:08] LABS: BACTERIA, URINE MOD /hpf; BLOOD, URINE MOD (NEG); COMMENT (UR) CULTURE INDICATED; CULTURE IF INDICATED CULTURE INDICATED; GLUCOSE,URINE NEG (NEG); HYALINE CAST, URINE 6 /lpf (RARE); KETONE, URINE NEG (NEG); MUCUS URINE FEW /lpf (OCC); NITRITE,URINE NEG (NEG); PH, URINE 5.5 (5.0-8.5); URINE COLOR YELLOW (YELLW/STRAW)
[2016-11-17 10:17] LABS: HEMO FLAGS AUTO DIFF
[2016-11-17 10:24] LABS: BICARBONATE 24.3 MEQ/L (21.0-32.0); POTASSIUM 3.1 MEQ/L (3.5-5.1)
[2016-11-17 10:59] LABS: BANDS 11 % (0-6); BASOPHILS 1 % (0-2); EOSINOPHILS 7 % (0-4); MYELOCYTES 1 % (0-0); NEUTROPHIL # MANUAL DIFF 0.8 TH/MM3 (1.8-7.7); OVALOCYTES 1+ (NORMAL); PLATELET ESTIMATE SMEAR LOW (NORMAL); PLATELET MORPHOLOGY NORMAL (NORMAL); POLYS (SEG NEUTROPHILS) 42 % (16-70); SCAN/DIFF FINAL DIFF MANUAL; WBC DIFF SAMPLE 100
[2016-11-17 12:00] VITALS: BP 122/77; PULSE 112; RESP 40; TEMP 97.7; O2SAT 100
[2016-11-17 16:00] VITALS: BP 122/71; PULSE 81; RESP 36; TEMP 98.4; O2SAT 98
[2016-11-17 20:00] VITALS: BP 106/64; PULSE 98; RESP 20; TEMP 96.7; O2SAT 100
[2016-11-17] MEDS: ALPRAZolam 0.25 MG TAB PO SCH (20:36)
[2016-11-17] MEDS: PRAVASTATIN SOD 20 MG TAB PO SCH (20:36)
[2016-11-17] MEDS: ATENOLOL 25 MG TAB PO SCH (20:37)
[2016-11-18] VITALS: BP 111/69; PULSE 98; RESP 19; TEMP 97.8; O2SAT 96
[2016-11-18] MEDS: AZTREONAM INJ 1,000 MG in SODIUM CHLORIDE 0.9% INJ 100 ML IV SCH ×2 (02:33→14:00)
[2016-11-18] MEDS: CEFEPIME INJ 1,000 MG in SODIUM CHLORIDE 0.9% INJ 100 ML IV SCH (05:02)
[2016-11-18] MEDS: metroNIDAZOLE 500 MG TAB PO SCH ×4 (05:02→22:51)
[2016-11-18] MEDS: INSULIN ASPART SUPPLEMENTAL SCALE SQ SCH ×4 (05:09→21:00)
--- NOTE | 2016-11-18 05:53 | MB ---
cc: DEVENDRA NGUYỄN MD DATE OF SERVICE 11/17/2016 REASON FOR CONSULTATION 1. History of bladder cancer. 2. UTI. HISTORY OF PRESENT ILLNESS The patient is an 81-year-old male with history of bladder cancer status post multiple TURBTs in the past, most recently with Dr. Moreno, was admitted on 11/14/2016 with fever, chills and diarrhea. He was also found to have an elevated white count of 15,000. On presentation to the ER he did have indwelling Delgado catheter which did have blood in his urine. He has subsequently diagnosed with urinary tract infection, was admitted for IV antibiotics and Urology was consulted. The patient is not the best historian but currently denies any pain, any abdominal pain, flank pain, fevers, chills, nausea, vomiting at that time. He still continued with the complaint of diarrhea. He is also complaining of penile pain from the catheter itself. He denies history of kidney stones but he did also have prostate cancer was treated with a radical prostatectomy back in 1992. Denies any family history of genitourinary malignancies as well. REVIEW OF SYSTEMS See HPI, otherwise all systems reviewed and otherwise are negative. PAST MEDICAL HISTORY Significant for - 1. Bladder cancer. 2. Prostate cancer. 3. History of atrial fibrillation. 4. History of stroke. 5. Diabetes. 6. History of mantle cell lymphoma. 7. History of lung cancer. PAST SURGICAL HISTORY 1. Status post TURBT. 2. Status post radical prostatectomy in 1992. 3. He has had removal of skin cancers MEDICATIONS 1. Flagyl. 2. Metformin. 3. Protonix. 4. Atenolol. 5. Insulin. 6. Pravachol. ALLERGIES No known drug allergies. FAMILY HISTORY Denies urolithiasis or genitourinary malignancies. REVIEW OF SYSTEMS See HPI. Otherwise all systems reviewed, otherwise are negative. PHYSICAL EXAMINATION GENERAL: Angina and alert x 3, in no acute distress. Pleasant cooperative gentleman who appears his stated age. He is not best historian, however. HEENT: Head is normocephalic, atraumatic. EYES: No scleral icterus. Extraocular muscles intact. NECK: Supple. Trachea is midline. No JVD. SKIN: No ulcers or rashes. Mucous membranes pink and moist. LUNGS: Clear to auscultation bilaterally. No wheezes, rales or rhonchi. HEART: Regular rate and rhythm. No murmurs, gallops or rubs. ABDOMEN: Soft, nontender, nondistended. Positive bowel sounds. GENITOURINARY: His penis is circumcised. Testes descended bilaterally, normal size and consistency. Delgado draining clear yellow urine. RECTAL EXAM: Not indicated at this time. EXTREMITIES: Nontender. No clubbing, cyanosis, edema. PSYCH: Normal affect. NEUROLOGIC: Cranial nerves II-XII intact. Strength 4/5 in all four extremities. LABORATORY DATA Labs show a white count of 1.4, hemoglobin 10.2, hematocrit 29.3, platelet count 103. Sodium 142, potassium 3.1, chloride 109, bicarb 24.3, BUN 13, creatinine 1.07. His urine showed large leukocyte esterase, moderate blood. On the he had a repeat urine culture. His urine culture from the grew out Klebsiella as well as his blood cultures grew out 2/2 Klebsiella. IMAGING STUDIES No relevant imaging studies. ASSESSMENT AND PLAN The patient is an 81-year-old male with history of prostate cancer status post radical retropubic prostatectomy back in 1992, history of bladder cancer status post TURBT, most recently by Dr. Moreno. Was then admitted with fevers, chills, diarrhea with indwelling Delgado catheter and hematuria, diagnosed with a urinary tract infection. PLAN 1. Recommend continuing IV antibiotics at this time per the primary team. 2. Recommend continue the Delgado catheter for presumed urinary retention as he did come to the ER with a Delgado catheter in place. 3. He does have a history of atrial fibrillation which is being managed by the primary team. 4. We will check a renal ultrasound of his kidneys. 5. Recommended that, once he is okayed for discharge, that he be discharged home with his Delgado catheter and given void trial as an outpatient with Dr. Moreno. Devendra Nguyễn MD [facility]MCynthia/ERIC /9:09 PM /5:44 AM
[2016-11-18 08:00] VITALS: BP 116/77; PULSE 77; RESP 33; TEMP 96.1; O2SAT 98
[2016-11-18] MEDS: PANTOPRAZOLE SODIUM 40 MG VIAL IV PUSH SCH ×2 (08:00→22:42)
[2016-11-18] MEDS: PANTOPRAZOLE SOD 20 MG DELAYED RELEASE TAB PO SCH (08:06)
[2016-11-18] MEDS: SODIUM CHLORIDE 0.9% FLUSH 10 ML FLUSH IV FLUSH SCH ×2 (08:06→22:41)
[2016-11-18] MEDS: DOCUSATE SODIUM 50 MG/SENNA 8.6 MG TAB PO SCH ×2 (08:09→21:00)
[2016-11-18] MEDS: metFORMIN HCL 500 MG TAB PO SCH ×2 (08:09→17:55)
--- NOTE | 2016-11-18 10:47 | RADRPT ---
EXAM DATE/TIME: 11/18/2016 10:04 [facility] COMPARISON: No previous studies available for comparison. EXTERNAL COMPARISON : [facility], CT ABDOMEN AND PELVIS W/ CONTRAST, October 29, 2016[facility], CT ABDOMEN AN D PELVIS W/ CONTRAST, July 19, 2016. [facility], CT ABDOMEN & PELVIS W/ CONTRAST, January 25, 2016. [facility], CT ABDOMEN & PELVIS W/ CONTRAST, September 27, 2015. [facility], CT ABDOMEN & PELVIS W/ CONTRAST, June 16, 2015. [facility], CT ABDOMEN & PELVIS W/ CONTRAST , March 08, 2015. [facility], CT ABDOMEN & PELVIS W/ CONTRAST, November 16, 2014. [facility], CT ABDOMEN & PELVIS W/ CONTRAST, May,. INDICATIONS : Hematuria. MEDICAL HISTORY : Stroke. Hypercholesterolemia. Gastroesophageal reflux disease. Hypertension. Kidney stones. Arthritis . Polyuria. Nocturia. Bladder cancer. Lymphoma. C-diff. Skin cancer. Prostate cancer. SURGICAL HISTORY : Fluid removal from knee. Prostatectomy. ENCOUNTER: Initial ACUITY: 1 day PAIN SCORE: 1/10 LOCATION: Bilateral flank MEASUREMENTS: RIGHT KIDNEY: 9.2 x 3.8 x 3.7 cm LEFT KIDNEY: 9.4 x 5.6 x 4.7 cm FINDINGS: RIGHT KIDNEY: Renal cortex is normal in thickness and echotexture. No hydronephrosis, stone, or mass. LEFT KIDNEY: Renal cortex is normal in thickness and echotexture. No hydronephrosis, stone, or mass. BLADDER: Completely decompressed secondary to Delgado catheter.. CONCLUSION: 1. No sonographic evidence for renal calculi or obstructive uropathy. 2. Bladder is not evaluated due to decompression by Delgado catheter. Aidan Lowe MD on November 18, 2016 at 10:44 Board Certified Radiologist. This report was verified electronically.
[2016-11-18] MEDS: ACETAMINOPHEN/HYDROcodone 325 MG/5 MG TAB PO PRN (11:51)
[2016-11-18 12:00] VITALS: BP 125/71; PULSE 80; RESP 32; TEMP 95.8; O2SAT 99
--- NOTE | 2016-11-18 13:00 | HHI.PR ---
Subjective Remarks He is lying in the bed at this time and states that he sat up for quite some time earlier this morning. Urology saw him and gave a disposition to leave the beltran catheter in place. Objective - Vital Signs Date Time Temp Pulse Resp B/P Pulse Ox O2 Delivery O2 Flow Rate FiO2 11/18/16 08:00 96.1 77 33 116/77 98 11/18/16 00:00 97.8 98 19 111/69 96 11/17/16 20:00 96.7 98 20 106/64 100 11/17/16 16:00 98.4 81 36 122/71 98 I/O 11/17/16 11/17/16 11/17/16 11/18/16 11/18/16 11/18/16 07:00 15:00 23:00 07:00 15:00 23:00 Intake Total 729 ml 462 ml 120 ml 440 ml Output Total 675 ml 550 ml 250 ml 500 ml Balance 54 ml -88 ml -130 ml -60 ml Intake Oral 240 ml 360 ml 120 ml 240 ml IV Total 489 ml 102 ml 200 ml Output Urine Total 675 ml 550 ml 250 ml 500 ml # Bowel Movements 3 3 3 3 Result Diagram: 11/17/1632 11/17/16931 Objective Remarks GENERAL: Alert and in acute distress. SKIN: Warm and dry. HEAD: Normocephalic. EYES: No scleral icterus. No injection or drainage. NECK: Supple, trachea midline. No JVD or lymphadenopathy. CARDIOVASCULAR: Regular rate and rhythm without murmurs, gallops, or rubs. RESPIRATORY: Breath sounds equal bilaterally. No accessory muscle use. GASTROINTESTINAL: Abdomen soft, non-tender, nondistended. MUSCULOSKELETAL: No cyanosis, or edema. BACK: Nontender without obvious deformity. No CVA tenderness. A/P Assessment and Plan ASSESSMENT 1. Acute Neutropenic Sepsis-improving. 2. Hypotension-resolved. 3. Urinary Tract Infection, on admission. 4. C. Difficile Colitis-appears improving. 5. Anemia with Thrombocytopenia. 6. Prostate Cancer. 7. Bladder Cancer. 8. Right Lung Cancer. 9. Mantle Cell Lymphoma, Stage 4B. 10. Diabetes Mellitus, Type 2. 11. Hypertension. 12. Hyperlipidemia. PLAN 1. Continue with activity out of bed as tolerated. 2. Follow up laboratory assessment. 3. Hematology and Infectious Disease follow. 4. Urology disposition is noted. 5. Encouraged good oral hydration. 6. Continue with intravenous and oral antibiotics. 7. DVT, PE and PUD prophylaxis. Quang Mcdonough MD Nov 18, 2016 13:00
--- NOTE | 2016-11-18 14:21 | HHI.IDPN ---
Note Infectious Disease Note Patient is awake and alert. Denies abdominal pain. No chills. Still having multiple bowel movements. Noted by RN to be mucoid. On liquid diet. Afebrile. PAST MEDICAL HISTORY Prostate cancer. Recent prostate procedure on October 28 and subsequent placement of Delgado catheter. The patient had a Delgado catheter in place when he presented to the emergency department. Atrial fibrillation, hypertension, history of the CVA, diabetes mellitus, history of bladder cancer, diminished hearing, bladder cancer surgery, bilateral cataract surgery, prostatectomy. ALLERGIES NO KNOWN DRUG ALLERGIES. MEDICATIONS 1. Aztreonam. 2. Cefepime. 3. Metronidazole. SOCIAL HISTORY No tobacco or alcohol or illicit drugs. FAMILY HISTORY Noncontributory. OBJECTIVE: Vital Signs Date Time Temp Pulse Resp B/P Pulse Ox O2 Delivery O2 Flow Rate FiO2 11/18/16 12:51 20 11/18/16 12:00 95.8 80 32 125/71 99 11/18/16 08:00 96.1 77 33 116/77 98 11/18/16 00:00 97.8 98 19 111/69 96 11/17/16 20:00 96.7 98 20 106/64 100 11/17/16 16:00 98.4 81 36 122/71 98 11/17/16 11/17/16 11/18/16 14:59 22:59 06:59 Intake Total 462 ml 120 ml 440 ml Output Total 550 ml 250 ml 500 ml Balance -88 ml -130 ml -60 ml Intake Oral 360 ml 120 ml 240 ml IV Total 102 ml 200 ml Output Urine Total 550 ml 250 ml 500 ml # Bowel Movements 3 3 3 Laboratory Tests Test 11/17/16 09:32 White Blood Count 1.4 TH/MM3 Red Blood Count 3.26 MIL/MM3 Hemoglobin 10.2 GM/DL Hematocrit 29.3 % Mean Corpuscular Volume 89.9 FL Mean Corpuscular Hemoglobin 31.3 PG Mean Corpuscular Hemoglobin 34.8 % Concent Red Cell Distribution Width 14.6 % Platelet Count 103 TH/MM3 Mean Platelet Volume 9.0 FL Neutrophils (%) (Auto) % Lymphocytes (%) (Auto) % Monocytes (%) (Auto) % Eosinophils (%) (Auto) % Basophils (%) (Auto) % Neutrophils # (Auto) TH/MM3 Lymphocytes # (Auto) TH/MM3 Monocytes # (Auto) TH/MM3 Eosinophils # (Auto) TH/MM3 Basophils # (Auto) TH/MM3 CBC Comment AUTO DIFF Differential Total Cells 100 Counted Neutrophils % (Manual) 42 % Band Neutrophils % 11 % Lymphocytes % 24 % Monocytes % 14 % Eosinophils % 7 % Basophils % 1 % Neutrophils # (Manual) 0.8 TH/MM3 Myelocytes 1 % Differential Comment FINAL DIFF MANUAL Platelet Estimate LOW Platelet Morphology Comment NORMAL Ovalocytes 1+ Laboratory Tests Test 11/17/16 09:32 Sodium Level 142 MEQ/L Potassium Level 3.1 MEQ/L Chloride Level 109 MEQ/L Carbon Dioxide Level 24.3 MEQ/L Anion Gap 9 MEQ/L Blood Urea Nitrogen 13 MG/DL Creatinine 1.07 MG/DL Estimat Glomerular Filtration 66 ML/MIN Rate Random Glucose 157 MG/DL Calcium Level 8.2 MG/DL Microbiology Date/Time Procedure Status Source Growth 11/17/16 09:40 Urine Culture - Preliminary Resulted Urine Clean Catch NO GROWTH IN 24 HOURS. Microbiology Date/Time Procedure Status Source Growth 11/13/16 16:00 Aerobic Blood Culture - Preliminary Resulted Blood Peripheral Enterobacter Species 11/13/16 16:00 Anaerobic Blood Culture - Preliminary Resulted Gram Negative Jasiel 11/13/16 16:20 Aerobic Blood Culture - Preliminary Resulted Blood Peripheral NO GROWTH IN 2 DAYS 11/13/16 16:20 Anaerobic Blood Culture - Preliminary Resulted Blood Peripheral NO GROWTH IN 2 DAYS 11/13/16 19:30 Urine Culture - Preliminary Resulted Urine Catheterized Urine Klebsiella Pneumoniae Gram Negative Jasiel 11/14/16 00:13 Aerobic Blood Culture Received Blood Peripheral Pending 11/14/16 00:13 Anaerobic Blood Culture Received Blood Peripheral Pending PHYSICAL EXAMINATION GENERAL: No acute distress. HEENT: Head atraumatic. No icterus. Oropharynx dry mucosa without lesions. NECK: Supple. No adenopathy. LUNGS: Clear to auscultation. HEART: Irregular S1-S2. No audible murmurs. No rubs or gallops. ABDOMEN: Soft, no tenderness. EXTREMITIES: No clubbing or cyanosis or edema. SKIN: No rash. The skin is warm and moist. NEURO: No gross focal findings. PSYCHIATRIC: Calm and cooperative. IMPRESSION 1. Gram-negative sepsis. Klebsiella pneumoniae. 2. Urinary tract infection klebsiella pneumoniae. 3. Neutropenia. 4. Thrombocytopenia. Patient with severe sepsis indicated by the increased lactic acid, elevated heart rate, acute renal failure, neutropenia. Appears stable but still has loose stools. RECOMMENDATIONS 1. Stop cefepime. 2. Stop Azactam. 3. Start Ceftriaxone IV for 5 more days. 4. Continue metronidazole oral x 9 more days if stools continue to improve. 5. Add Lactinex PO. 6. Monitor blood counts. 7. Monitor renal function. Probably want to see the neutropenia improve before discharge. Jese Cardona MD Nov 18, 2016 14:21
[2016-11-18 16:00] VITALS: BP 122/74; PULSE 81; RESP 30; TEMP 96.3; O2SAT 98
[2016-11-18] MEDS: cefTRIAXone INJ 2,000 MG in SODIUM CHLORIDE 0.9% INJ 100 ML IV SCH (16:11)
[2016-11-18] MEDS: LACTOBACILLUS ACIDOPHILUS TAB PO SCH (17:55)
[2016-11-18] MEDS: NYSTATIN SUSP 500,000 U/5 ML CUP SWISH-SWAL SCH ×2 (17:55→22:40)
[2016-11-18 20:00] VITALS: BP 100/57; PULSE 86; RESP 19; TEMP 98.8; O2SAT 96
[2016-11-18] MEDS: ATENOLOL 25 MG TAB PO SCH (21:00)
[2016-11-18] MEDS: PRAVASTATIN SOD 20 MG TAB PO SCH (22:39)
[2016-11-18] MEDS: ALPRAZolam 0.25 MG TAB PO SCH (22:40)
[2016-11-19] VITALS: BP 122/89; PULSE 82; RESP 18; TEMP 97.2; O2SAT 98
[2016-11-19] MEDS: metroNIDAZOLE 500 MG TAB PO SCH ×3 (06:38→18:37)
[2016-11-19 08:00] VITALS: BP 125/68; PULSE 88; RESP 16; TEMP 97.9; O2SAT 97
[2016-11-19] MEDS: DOCUSATE SODIUM 50 MG/SENNA 8.6 MG TAB PO SCH ×2 (09:00→21:00)
[2016-11-19 09:35] LABS: HEMATOCRIT 29.3 % (39.0-51.0); MEAN CELL VOLUME 89.9 FL (80.0-100.0); MEAN CORPUSCULAR HEMOGLOBIN 31.5 PG (27.0-34.0); PLATELET COUNT 113 TH/MM3 (150-450); RED BLOOD COUNT 3.26 MIL/MM3 (4.50-5.90); RED CELL DISTRIBUTION WIDTH 14.5 % (11.6-17.2); WHITE BLOOD COUNT 1.7 TH/MM3 (4.0-11.0)
[2016-11-19 09:38] LABS: HEMO FLAGS AUTO DIFF
[2016-11-19 09:53] LABS: BICARBONATE 23.7 MEQ/L (21.0-32.0)
[2016-11-19 09:55] LABS: POTASSIUM 2.8 MEQ/L (3.5-5.1)
[2016-11-19] MEDS ORDERED: POTASSIUM CHLORIDE 20 MEQ CONTROLLED RELEASE TAB PO ONE ×2 (10:15→14:00)
[2016-11-19] MEDS: PANTOPRAZOLE SODIUM 40 MG VIAL IV PUSH SCH ×2 (10:15→21:18)
[2016-11-19] MEDS: metFORMIN HCL 500 MG TAB PO SCH ×2 (10:16→18:38)
[2016-11-19] MEDS: PANTOPRAZOLE SOD 20 MG DELAYED RELEASE TAB PO SCH (10:16)
[2016-11-19] MEDS: LACTOBACILLUS ACIDOPHILUS TAB PO SCH ×3 (10:16→18:37)
[2016-11-19] MEDS: NYSTATIN SUSP 500,000 U/5 ML CUP SWISH-SWAL SCH ×4 (10:16→21:18)
[2016-11-19] MEDS: SODIUM CHLORIDE 0.9% FLUSH 10 ML FLUSH IV FLUSH SCH ×2 (10:16→21:19)
[2016-11-19 10:24] LABS: BANDS 5 % (0-6); CORRECTED NUCLEATED RBC 1 /100 WBC (0-0); EOSINOPHILS 7 % (0-4); METAMYELOCYTES 1 % (0-1); NEUTROPHIL # MANUAL DIFF 0.8 TH/MM3 (1.8-7.7); OVALOCYTES 2+ (NORMAL); POLYS (SEG NEUTROPHILS) 41 % (16-70); WBC DIFF SAMPLE 100
[2016-11-19 10:25] LABS: PLATELET ESTIMATE SMEAR LOW (NORMAL); PLATELET MORPHOLOGY NORMAL (NORMAL); SCAN/DIFF FINAL DIFF MANUAL
[2016-11-19] MEDS: INSULIN ASPART SUPPLEMENTAL SCALE SQ SCH ×3 (11:00→21:00)
[2016-11-19 12:00] VITALS: BP 127/77; PULSE 100; RESP 18; TEMP 96.6; O2SAT 95
[2016-11-19] MEDS: cefTRIAXone INJ 2,000 MG in SODIUM CHLORIDE 0.9% INJ 100 ML IV SCH (15:37)
[2016-11-19 17:41] LABS: BICARBONATE 21.3 MEQ/L (21.0-32.0); POTASSIUM 3.4 MEQ/L (3.5-5.1)
[2016-11-19 20:00] VITALS: BP 132/68; PULSE 83; RESP 20; TEMP 98.5; O2SAT 99
[2016-11-19] MEDS: PRAVASTATIN SOD 20 MG TAB PO SCH (21:18)
[2016-11-19] MEDS: ATENOLOL 25 MG TAB PO SCH (21:18)
[2016-11-19] MEDS: ALPRAZolam 0.25 MG TAB PO SCH (21:18)
[2016-11-20] VITALS: BP 122/65; PULSE 70; RESP 18; TEMP 97.3; O2SAT 97
[2016-11-20] MEDS: metroNIDAZOLE 500 MG TAB PO SCH ×3 (00:26→12:18)
[2016-11-20] MEDS: INSULIN ASPART SUPPLEMENTAL SCALE SQ SCH ×4 (06:46→20:21)
[2016-11-20 07:29] LABS: MEAN CELL VOLUME 89.4 FL (80.0-100.0); MEAN CORPUSCULAR HEMOGLOBIN 31.1 PG (27.0-34.0); MEAN CORPUSCULAR HGB CONC 34.8 % (32.0-36.0); PLATELET COUNT 138 TH/MM3 (150-450); RED BLOOD COUNT 3.69 MIL/MM3 (4.50-5.90); RED CELL DISTRIBUTION WIDTH 14.6 % (11.6-17.2); WHITE BLOOD COUNT 2.6 TH/MM3 (4.0-11.0)
[2016-11-20 07:38] LABS: BICARBONATE 24.4 MEQ/L (21.0-32.0); MAGNESIUM 1.8 MG/DL (1.5-2.5); POTASSIUM 3.2 MEQ/L (3.5-5.1)
[2016-11-20 08:00] VITALS: BP 131/70; PULSE 74; RESP 17; TEMP 97.5; O2SAT 97
[2016-11-20] MEDS: PANTOPRAZOLE SODIUM 40 MG VIAL IV PUSH SCH ×2 (08:00→20:13)
[2016-11-20 08:10] LABS: HEMO FLAGS AUTO DIFF
[2016-11-20] MEDS: DOCUSATE SODIUM 50 MG/SENNA 8.6 MG TAB PO SCH ×2 (09:00→20:13)
[2016-11-20] MEDS ORDERED: POTASSIUM CHLORIDE 20 MEQ CONTROLLED RELEASE TAB PO ONE ×2 (09:45→14:00)
[2016-11-20] MEDS: LACTOBACILLUS ACIDOPHILUS TAB PO SCH ×3 (10:04→18:16)
[2016-11-20] MEDS: metFORMIN HCL 500 MG TAB PO SCH ×2 (10:04→18:15)
[2016-11-20] MEDS: NYSTATIN SUSP 500,000 U/5 ML CUP SWISH-SWAL SCH ×4 (10:04→20:15)
[2016-11-20] MEDS: PANTOPRAZOLE SOD 20 MG DELAYED RELEASE TAB PO SCH (10:04)
[2016-11-20] MEDS: SODIUM CHLORIDE 0.9% FLUSH 10 ML FLUSH IV FLUSH SCH ×2 (10:05→20:16)
[2016-11-20 10:17] LABS: BANDS 9 % (0-6); EOSINOPHILS 3 % (0-4); MYELOCYTES 1 % (0-0); NEUTROPHIL # MANUAL DIFF 1.4 TH/MM3 (1.8-7.7); POLYS (SEG NEUTROPHILS) 43 % (16-70); WBC DIFF SAMPLE 100
[2016-11-20 10:18] LABS: OVALOCYTES 1+ (NORMAL); PLATELET ESTIMATE SMEAR LOW (NORMAL); PLATELET MORPHOLOGY NORMAL (NORMAL); SCAN/DIFF FINAL DIFF MANUAL
[2016-11-20 12:00] VITALS: BP 125/73; PULSE 80; RESP 16; TEMP 96.3; O2SAT 97
--- NOTE | 2016-11-20 15:38 | HHI.IDPN ---
Note Infectious Disease Note Patient notes that food does not taste good and that he lopez a bad taste in his mouth. RN reports that he is no eating much. He is wake and alert. Denies abdominal pain. No chills. Still reports having multiple bowel movements. On liquid diet. Afebrile. PAST MEDICAL HISTORY Prostate cancer. Recent prostate procedure on October 28 and subsequent placement of Delgado catheter. The patient had a Delgado catheter in place when he presented to the emergency department. Atrial fibrillation, hypertension, history of the CVA, diabetes mellitus, history of bladder cancer, diminished hearing, bladder cancer surgery, bilateral cataract surgery, prostatectomy. ALLERGIES NO KNOWN DRUG ALLERGIES. ANTIBIOTICS: Ceftriaxone. Metronidazole. Nystatin S & S. OBJECTIVE: Vital Signs Date Time Temp Pulse Resp B/P Pulse Ox O2 Delivery O2 Flow Rate FiO2 11/20/16 12:00 96.3 80 16 125/73 97 11/20/16 08:00 97.5 74 17 131/70 97 11/20/16 00:00 97.3 70 18 122/65 97 11/19/16 20:00 98.5 83 20 132/68 99 11/19/16 11/19/16 11/20/16 15:00 23:00 07:00 Intake Total 720 ml 240 ml 240 ml Output Total 500 ml 175 ml Balance 220 ml 65 ml 240 ml Intake Oral 720 ml 240 ml 240 ml IV Total 0 ml Output Urine Total 500 ml 175 ml # Voids 100 # Bowel Movements 5 5 4 Laboratory Tests Test 11/19/16 11/20/16 09:07 06:56 White Blood Count 1.7 TH/MM3 2.6 TH/MM3 Red Blood Count 3.26 MIL/MM3 3.69 MIL/MM3 Hemoglobin 10.3 GM/DL 11.5 GM/DL Hematocrit 29.3 % 33.0 % Mean Corpuscular Volume 89.9 FL 89.4 FL Mean Corpuscular Hemoglobin 31.5 PG 31.1 PG Mean Corpuscular Hemoglobin 35.0 % 34.8 % Concent Red Cell Distribution Width 14.5 % 14.6 % Platelet Count 113 TH/MM3 138 TH/MM3 Mean Platelet Volume 9.3 FL 9.2 FL Neutrophils (%) (Auto) % % Lymphocytes (%) (Auto) % % Monocytes (%) (Auto) % % Eosinophils (%) (Auto) % % Basophils (%) (Auto) % % Neutrophils # (Auto) TH/MM3 TH/MM3 Lymphocytes # (Auto) TH/MM3 TH/MM3 Monocytes # (Auto) TH/MM3 TH/MM3 Eosinophils # (Auto) TH/MM3 TH/MM3 Basophils # (Auto) TH/MM3 TH/MM3 CBC Comment AUTO DIFF AUTO DIFF Differential Total Cells 100 100 Counted Neutrophils % (Manual) 41 % 43 % Band Neutrophils % 5 % 9 % Lymphocytes % 40 % 36 % Monocytes % 6 % 8 % Eosinophils % 7 % 3 % Neutrophils # (Manual) 0.8 TH/MM3 1.4 TH/MM3 Metamyelocytes 1 % Nucleated Red Blood Cells 1 /100 WBC Differential Comment FINAL DIFF FINAL DIFF MANUAL MANUAL Platelet Estimate LOW LOW Platelet Morphology Comment NORMAL NORMAL Ovalocytes 2+ 1+ Myelocytes 1 % Laboratory Tests Test 11/19/16 11/19/16 11/20/16 09:07 17:14 06:56 Sodium Level 142 MEQ/L 143 MEQ/L 144 MEQ/L Potassium Level 2.8 MEQ/L 3.4 MEQ/L 3.2 MEQ/L Chloride Level 109 MEQ/L 109 MEQ/L 109 MEQ/L Carbon Dioxide Level 23.7 MEQ/L 21.3 MEQ/L 24.4 MEQ/L Anion Gap 9 MEQ/L 13 MEQ/L 11 MEQ/L Blood Urea Nitrogen 11 MG/DL 12 MG/DL Creatinine 1.17 MG/DL 1.27 MG/DL Estimat Glomerular Filtration 60 ML/MIN 54 ML/MIN Rate Random Glucose 154 MG/DL 135 MG/DL Calcium Level 8.0 MG/DL 8.6 MG/DL Magnesium Level 1.8 MG/DL 1.8 MG/DL PHYSICAL EXAMINATION GENERAL: No acute distress. HEENT: Head atraumatic. No icterus. Oropharynx dry mucosa (+) thrush. NECK: Supple. No adenopathy. LUNGS: Clear breath sounds. HEART: Irregular S1-S2. No audible murmurs. No rubs or gallops. ABDOMEN: Soft, no tenderness. EXTREMITIES: No clubbing or cyanosis or edema. SKIN: No rash. The skin is warm and moist. NEURO: No gross focal findings. Alert,awake. PSYCHIATRIC: Calm and cooperative. IMPRESSION 1. Sepsis Klebsiella - pneumoniae. 2. Urinary tract infection - klebsiella pneumoniae. 3. Neutropenia. WBC a little higher. 4. Thrombocytopenia. Improving. RECOMMENDATIONS 1. Continue until Ceftriaxone IV until 11/23. 2. Change metronidazole to PO vancomycin. I think it is affecting his taste and therefore leading to poor PO intake. Also diarrhea is slow to improve. Continue the PO Vanco for 9 more days for c. difficile. Will order boost to supplement PO intake. 3. Add Diflucan for oral thrush. 4. Continue Lactinex PO. 5. Monitor blood counts. Appear to be improving. 6. Monitor renal function. Jese Cardona MD Nov 20, 2016 15:38
[2016-11-20 16:00] VITALS: BP 140/67; PULSE 78; RESP 17; TEMP 98.4; O2SAT 98
--- NOTE | 2016-11-20 17:02 | HHI.PR ---
Subjective Remarks He was seen by Infectious Disease consult with the note appreciated. He reports still feeling very tired and with little motivation to be up out of the bed. His appetite is still poor as well. He is being tried on nutritional supplements in addition to the meals. He appears to be tolerating the regimen of medications. Some adjustments of the antibiotics have been made by infectious disease. Objective - Vital Signs Date Time Temp Pulse Resp B/P Pulse Ox O2 Delivery O2 Flow Rate FiO2 11/20/16 16:00 98.4 78 17 140/67 98 11/20/16 12:00 96.3 80 16 125/73 97 11/20/16 08:00 97.5 74 17 131/70 97 11/20/16 00:00 97.3 70 18 122/65 97 11/19/16 20:00 98.5 83 20 132/68 99 I/O 11/19/16 11/19/16 11/19/16 11/20/16 11/20/16 11/20/16 07:00 15:00 23:00 07:00 15:00 23:00 Intake Total 240 ml 720 ml 240 ml 240 ml 360 ml Output Total 300 ml 500 ml 175 ml 500 ml Balance -60 ml 220 ml 65 ml 240 ml -140 ml Intake Oral 240 ml 720 ml 240 ml 240 ml 360 ml IV Total 0 ml 0 ml Output Urine Total 300 ml 500 ml 175 ml 500 ml # Voids 100 # Bowel Movements 5 5 5 4 7 Result Diagram: 11/20/16 0656 11/20/16 06 Objective Remarks GENERAL: He appears a bit less despondent today. SKIN: Warm and dry. HEAD: Normocephalic. Nontender. EYES: No scleral icterus. No injection or drainage. NECK: Supple, trachea midline. No JVD or lymphadenopathy. CARDIOVASCULAR: Regular rate and rhythm without murmurs, gallops, or rubs. RESPIRATORY: Breath sounds equal bilaterally. No accessory muscle use. GASTROINTESTINAL: Abdomen soft, non-tender, nondistended. MUSCULOSKELETAL: No cyanosis, or edema. BACK: Nontender without obvious deformity. No CVA tenderness. A/P Assessment and Plan ASSESSMENT 1. Acute Neutropenic Sepsis-improving with less neutropenia. 2. Hypotension-resolved. 3. Urinary Tract Infection, on admission. 4. C. Difficile Colitis-appears improving. 5. Anemia with Thrombocytopenia. 6. Prostate Cancer. 7. Bladder Cancer. 8. Right Lung Cancer. 9. Mantle Cell Lymphoma, Stage 4B. 10. Diabetes Mellitus, Type 2. 11. Hypertension. 12. Hyperlipidemia. PLAN 1. Continue with activity out of bed as tolerated. 2. Follow up laboratory assessment. 3. Infectious Disease follows. 4. Monitor his oral intake closely. 5. Encouraged good oral hydration. 6. Continue with intravenous and oral antibiotics. 7. DVT, PE and PUD prophylaxis. Quang Mcdonough MD Nov 20, 2016 17:02
[2016-11-20 17:50] LABS: BICARBONATE 21.6 MEQ/L (21.0-32.0); POTASSIUM 3.8 MEQ/L (3.5-5.1)
[2016-11-20] MEDS: FLUCONAZOLE 100 MG TAB PO SCH (18:16)
[2016-11-20] MEDS: VANCOMYCIN 500 MG VIAL (FOR ORAL USE ONLY) PO SCH ×2 (18:16→20:13)
[2016-11-20] MEDS: cefTRIAXone INJ 2,000 MG in SODIUM CHLORIDE 0.9% INJ 100 ML IV SCH (18:18)
[2016-11-20] MEDS: ALPRAZolam 0.25 MG TAB PO SCH (20:11)
[2016-11-20] MEDS: PRAVASTATIN SOD 20 MG TAB PO SCH (20:13)
[2016-11-20] MEDS: ATENOLOL 25 MG TAB PO SCH (20:13)
[2016-11-20 23:44] VITALS: BP 140/78; PULSE 82; RESP 18; TEMP 97.2; O2SAT 98
[2016-11-21] MEDS: INSULIN ASPART SUPPLEMENTAL SCALE SQ SCH ×4 (04:47→20:47)
[2016-11-21 08:00] VITALS: BP 136/80; PULSE 64; RESP 18; TEMP 97; O2SAT 98
[2016-11-21] MEDS: PANTOPRAZOLE SOD 20 MG DELAYED RELEASE TAB PO SCH (09:00)
[2016-11-21] MEDS: DOCUSATE SODIUM 50 MG/SENNA 8.6 MG TAB PO SCH ×2 (09:00→20:34)
[2016-11-21] MEDS: NYSTATIN SUSP 500,000 U/5 ML CUP SWISH-SWAL SCH ×4 (09:41→20:33)
[2016-11-21] MEDS: VANCOMYCIN 500 MG VIAL (FOR ORAL USE ONLY) PO SCH ×4 (09:42→20:33)
[2016-11-21] MEDS: ACETAMINOPHEN/HYDROcodone 325 MG/5 MG TAB PO PRN (09:44)
[2016-11-21] MEDS: FLUCONAZOLE 100 MG TAB PO SCH (09:45)
[2016-11-21] MEDS: LACTOBACILLUS ACIDOPHILUS TAB PO SCH ×3 (09:45→18:21)
[2016-11-21] MEDS: metFORMIN HCL 500 MG TAB PO SCH ×2 (09:45→18:21)
[2016-11-21] MEDS: SODIUM CHLORIDE 0.9% FLUSH 10 ML FLUSH IV FLUSH SCH ×2 (09:45→20:34)
[2016-11-21] MEDS: PANTOPRAZOLE SODIUM 40 MG VIAL IV PUSH SCH ×2 (09:46→20:34)
[2016-11-21 12:00] VITALS: BP 121/68; PULSE 88; RESP 16; TEMP 95.2; O2SAT 99
[2016-11-21 16:00] VITALS: BP 110/63; PULSE 84; RESP 16; TEMP 98.4; O2SAT 98
[2016-11-21] MEDS: cefTRIAXone INJ 2,000 MG in SODIUM CHLORIDE 0.9% INJ 100 ML IV SCH (16:21)
[2016-11-21 20:00] VITALS: BP 117/68; PULSE 81; RESP 20; TEMP 97.6; O2SAT 99
[2016-11-21] MEDS: ALPRAZolam 0.25 MG TAB PO SCH (20:33)
[2016-11-21] MEDS: PRAVASTATIN SOD 20 MG TAB PO SCH (20:33)
[2016-11-21] MEDS: ATENOLOL 25 MG TAB PO SCH (20:33)
[2016-11-22] VITALS: BP 124/72; PULSE 74; RESP 20; TEMP 97.9; O2SAT 100
[2016-11-22] MEDS: INSULIN ASPART SUPPLEMENTAL SCALE SQ SCH ×4 (04:30→21:00)
[2016-11-22 08:00] VITALS: BP 119/68; PULSE 82; RESP 16; TEMP 98.4; O2SAT 100
--- NOTE | 2016-11-22 08:06 | HHI.PR ---
Subjective Remarks He still appears to be with despondency though somewhat less than prior. He is not sure what he wants to do regarding continued medical treatment. He does cooperate with physical therapy for mobility efforts. His appetite is still somewhat poor. He states that he is trying to do better with oral intake overall. He appears to be tolerating the current treatment regimen well. Objective - Vital Signs Date Time Temp Pulse Resp B/P Pulse Ox O2 Delivery O2 Flow Rate FiO2 11/22/16 00:00 97.9 74 20 124/72 100 11/21/16 20:00 97.6 81 20 117/68 99 11/21/16 16:00 98.4 84 16 110/63 98 11/21/16 12:00 95.2 88 16 121/68 99 I/O 11/21/16 11/21/16 11/21/16 11/22/16 11/22/16 11/22/16 07:00 15:00 23:00 07:00 15:00 23:00 Intake Total 240 ml 340 ml 120 ml 120 ml Output Total 300 ml 450 ml 325 ml Balance 240 ml 40 ml -330 ml -205 ml Intake Oral 240 ml 340 ml 120 ml 120 ml Output Urine Total 300 ml 450 ml 325 ml # Voids 100 # Bowel Movements 4 3 4 4 Result Diagram: 11/20/16 0656 11/20/16 1639 Objective Remarks GENERAL: Alert. Appears a bit less despondent this morning. SKIN: Warm and dry. HEAD: Normocephalic. EYES: No scleral icterus. No injection or drainage. NECK: Supple, trachea midline. No JVD or lymphadenopathy. CARDIOVASCULAR: Regular rate and rhythm without murmurs, gallops, or rubs. RESPIRATORY: Breath sounds equal bilaterally. No accessory muscle use. GASTROINTESTINAL: Abdomen soft, non-tender, nondistended. MUSCULOSKELETAL: No cyanosis, or edema. BACK: Nontender without obvious deformity. No CVA tenderness. A/P Assessment and Plan ASSESSMENT 1. Acute Neutropenic Sepsis-improving with less neutropenia. 2. Hypotension-resolved. 3. Urinary Tract Infection, on admission. 4. C. Difficile Colitis-appears improving. 5. Anemia with Thrombocytopenia. 6. Prostate Cancer. 7. Bladder Cancer. 8. Right Lung Cancer. 9. Mantle Cell Lymphoma, Stage 4B. 10. Diabetes Mellitus, Type 2. 11. Hypertension. 12. Hyperlipidemia. PLAN 1. Continue with Physical Therapy for his activity. 2. Follow up laboratory assessment is pending. 3. Infectious Disease follows. 4. Monitor his oral intake closely. 5. Encouraged good oral hydration. 6. Will ask Palliative Care to assess his status. 7. DVT, PE and PUD prophylaxis. Quang Mcdonough MD Nov 22, 2016 08:06
[2016-11-22] MEDS: PANTOPRAZOLE SODIUM 40 MG VIAL IV PUSH SCH ×2 (08:32→20:29)
[2016-11-22] MEDS: LACTOBACILLUS ACIDOPHILUS TAB PO SCH ×3 (08:33→17:26)
[2016-11-22] MEDS: FLUCONAZOLE 100 MG TAB PO SCH (08:33)
[2016-11-22] MEDS: SODIUM CHLORIDE 0.9% FLUSH 10 ML FLUSH IV FLUSH SCH ×2 (08:33→20:29)
[2016-11-22] MEDS: metFORMIN HCL 500 MG TAB PO SCH ×2 (08:33→17:26)
[2016-11-22] MEDS: DOCUSATE SODIUM 50 MG/SENNA 8.6 MG TAB PO SCH ×2 (08:34→20:29)
[2016-11-22] MEDS: VANCOMYCIN 500 MG VIAL (FOR ORAL USE ONLY) PO SCH ×2 (08:34→14:35)
[2016-11-22] MEDS: PANTOPRAZOLE SOD 20 MG DELAYED RELEASE TAB PO SCH (08:34)
[2016-11-22] MEDS: NYSTATIN SUSP 500,000 U/5 ML CUP SWISH-SWAL SCH ×4 (08:35→20:29)
[2016-11-22] MEDS: ACETAMINOPHEN/HYDROcodone 325 MG/5 MG TAB PO PRN ×2 (08:55→17:33)
[2016-11-22 10:08] LABS: HEMATOCRIT 33.2 % (39.0-51.0); MEAN CELL VOLUME 91.3 FL (80.0-100.0); MEAN CORPUSCULAR HEMOGLOBIN 30.4 PG (27.0-34.0); MEAN CORPUSCULAR HGB CONC 33.2 % (32.0-36.0); PLATELET COUNT 138 TH/MM3 (150-450); RED BLOOD COUNT 3.63 MIL/MM3 (4.50-5.90); RED CELL DISTRIBUTION WIDTH 14.9 % (11.6-17.2); WHITE BLOOD COUNT 1.8 TH/MM3 (4.0-11.0)
[2016-11-22 10:11] LABS: HEMO FLAGS AUTO DIFF
[2016-11-22 10:28] LABS: BICARBONATE 25.2 MEQ/L (21.0-32.0); POTASSIUM 3.8 MEQ/L (3.5-5.1)
[2016-11-22 10:45] LABS: BANDS 6 % (0-6); BASOPHILS 2 % (0-2); EOSINOPHILS 13 % (0-4); MYELOCYTES 1 % (0-0); NEUTROPHIL # MANUAL DIFF 0.8 TH/MM3 (1.8-7.7); POLYS (SEG NEUTROPHILS) 40 % (16-70); SCAN/DIFF FINAL DIFF MANUAL; WBC DIFF SAMPLE 100
[2016-11-22 10:46] LABS: OVALOCYTES 1+ (NORMAL); PLATELET ESTIMATE SMEAR LOW (NORMAL); PLATELET MORPHOLOGY NORMAL (NORMAL)
[2016-11-22 10:47] LABS: ACANTHOCYTES OCC (NORMAL); DOHLE BODIES PRESENT (NONE SEEN)
[2016-11-22 12:00] VITALS: BP 125/70; PULSE 77; RESP 17; TEMP 97.4; O2SAT 100
--- NOTE | 2016-11-22 12:26 | PD.CONS ---
Consult Service Palliative Care . Consult Requested By Dr. Mcdonough Primary Care Physician Quang Mcdonough MD . Reason for Consultation a. To assist with evaluation and management of symptoms including: pain, diarrhea, debility, depression b. To assist medical decision maker(s) with: better understanding of current medical conditions; weighing benefits/burdens of medical treatment options; making medical treatment decisions. . HPI History of Present Illness Mr. Gilliland is an 81-year-old male with a history of HTN, atrial fibrillation prostate cancer s/p prostatectomy in 1992, CVA in 2001, GERD, YAKUTAT, DM, lipidemia, mantle cell lymphoma, H/O cancer and skin cancer. He presented to [facility] ED via EMS on 11/13/2016 for evaluation of penile pain status post cystoscopy with bladder tumor resection on 10/30/2016. Patient reports he has had a Beltran catheter since that time; it was replaced 2 days prior to presenting to the ED. He has not been on any chemotherapy. The patient also reported generalized malaise, recent diarrhea , nausea/vomiting , weakness and chills. The patient also complained of a 23 day history of diarrhea with associated n/v, weakness and chills. Patient is tachycardic with a low-grade fever on initial exam; the Beltran catheter was changed and a urinalysis was sent for evaluation. At this workup was initiated. Additional diagnostic findings include: * Pulse 111, respirations 19, BP 156/71, oxygen saturation 97% on room air * WBC 1.5, hemoglobin 10.8, hematocrit 31.2, platelets 148 * Sodium: 136, potassium 3.9, chloride 102, carbon dioxide 22.9, random glucose 123, calcium 8.5, magnesium 2.0 * BUN: 21, creatinine 1.70, GFR 39 * Total bilirubin: 0.6, AST 33, ALT 119, alkaline phosphatase 51 * Total creatine kinase: 433 * CK-MB: <0.5, CK-MB% 0.1 * Troponin: 0.07 * Total protein: 6.6, albumin 2.9 * PT: 49.5, INR 4.2, APTT 53.7 * Chest x-ray showed increasing parenchymal changes in the right lower lobe Patient appeared unwell. His WBC was low and he had bandemia. IV fluids and antibiotics were administered in the ED, and the patient was admitted for further evaluation/medical management of sepsis. Dr. Mcdonough is the patient's primary care physician. The patient also follows Dr. Derrick Quigley (urology) because of his history of bladder cancer and prostate cancer. He also follows Dr. Dorian Rebolledo (oncology) for mantle cell lymphoma, stage 4B. Infectious disease and hematology/oncology were consulted. Patient's WBC was 1.5 on admission and his platelets were low at 148; differential revealed 23% bands. DANIELLE with creatinine of 1.70 and estimated GFR of 39. Lactic acid: 2.6. Blood culture growing gram negatives rods. Patient is also thinning of diarrhea; he reports he was recently on an unknown antibiotic for 6 weeks for a lung infection. Vancomycin was discontinued; patient remains on cefepime and metronidazole. Given the patient's profound neutropenia, Dr. Cardona (infectious disease) started the patient on a second gram negative agent in case the blood cultures were resistant to cefepime. Per Dr. Pleitez (oncology), the patient has had at least 3 malignancies. He was diagnosed with right lung cancer in 08/2014 and underwent radiation which was completed in 10/2014. The patient also has a history of bladder cancer and has undergone multiple TURPs; no history of metastatic disease. The patient also has non-Hodgkin's lymphoma, specifically mantle cell lymphoma. He was on Bendamustine and Rituxan in the past, currently on maintenance Rituxan. Dr. Pleitez spoke with the patient's oncologist Dr. Rebolledo and both believed the sudden fall in a neutral count is likely secondary to sepsis. Recommendations were made for the patient to remain on antibiotics; if his neutrophil count falls below 500 would recommend starting the patient on Neupogen. Patient will f /u up with Dr. Rebolledo outpatient. Urology was also consulted. An ultrasound showed no evidence for renal calculi or obstructive uropathy; bladder was not evaluated due to decompression by Beltran catheter. Urine and Blood cultures were + Klebsiella pneumoniae. C. difficile positive. Patient appetite remains poor; he is receiving attritional supplement in addition to meals. The patient has become despondent and is not sure what if he wants to continue ongoing aggressive treatment, although he appears to be tolerating the current treatment regime. Palliative Care was consulted to assist with symptom management and to discuss with the family the benefits and burdens of her current illnesses and the options regarding future care. . Function/Cognitive Trajectory Mr. Gilliland is an 81-year-old male with an extensive past medical history that includes multiple types of cancer. He is hospitalized with severe sepsis- Klebsiella pneumoniae; UTIKlebsiella pneumoniae; acute neutropenia; thrombocytopenia and C. difficile. Prior to this hospitalization the patient states he was living independently. He reports a decline over the past year with associated weight loss and increased weakness. His appetite is poor. . Review of Systems Constitutional: COMPLAINS OF: Fatigue, Weight loss, Change in appetite, Pain, Generalized weakness Endocrine: DENIES: Polydipsia, Polyuria, Polyphagia Ears, nose, mouth, throat: COMPLAINS OF: Hearing loss, DENIES: Epistaxis Respiratory: DENIES: Shortness of breath Cardiovascular: DENIES: Dyspnea on Exertion Gastrointestinal: COMPLAINS OF: Abdominal pain, Diarrhea, Nausea, Vomiting, DENIES: Black stools, Bloody stools, Vomiting blood Genitourinary: COMPLAINS OF: Dysuria (Urethral pain secondary to cytoscopy and urinary catheter) Musculoskeletal: DENIES: Joint pain Hematologic/Lymphatics: DENIES: Bruising Neurologic: COMPLAINS OF: Poor Balance Psychiatric: COMPLAINS OF: Depression Past Family Social History Coded Allergies: No Known Allergies (Unverified , 12/26/15) Past Medical History Hypertension Atrial fibrillation Prostate cancer status post prostatectomy in 1992 CVA 2001 Gastroesophageal reflux disease Hyperlipidemia Mantle cell lymphoma History of bladder cancer in 2006 History of skin cancer History of right-sided lung cancer in 2014 . Past Surgical History Cataract surgery Knee surgery Skin cancer removal Prostatectomy Multiple Cystoscopy TURP Lymph node biopsy . Reported Medications Hm Omeprazole (Omeprazole) 20 Mg Tab 20 Mg PO DAILY Glucophage XR 24 HR (Metformin HCl) 500 Mg Tab 500 Mg PO BID Restoril 15 mg (Temazepam) 15 Mg Cap 15 Mg PO HSPRN Atenolol 25 Mg Tab 5 Mg PO HS Lovastatin 40 Mg Tab 60 Mg PO HS 1-Methyl 2-Pyrrolidinone (1-Methyl 2-Pyrrolidone (Bulk)) 10 Mg Tab 10 Mg PO HS Coumadin (Warfarin Sodium) 2.5 Mg Tab 2.5 Mg PO HS . Current Medications Medications (Trade) Dose Ordered Sig/[place] Route Start Time Stop Time Status Last Admin (NS Flush) 2 ml UNSCH PRN IV FLUSH 11/13/16 20:30 (NS Flush) 2 ml BID IV FLUSH 11/13/16 21:00 11/22/16 08:33 (Tylenol) 650 mg Q4H PRN PO 11/13/16 20:30 (Zofran Inj) 4 mg Q6H PRN IVP 11/13/16 20:30 11/16/16 16:45 (Restoril) 15 mg HS PRN PO 11/13/16 20:30 (Narcan Inj) 0.4 mg UNSCH PRN IV 11/13/16 20:30 ([place]-Colace) 1 tab BID PO 11/13/16 21:00 (Milk Of Magnesia Liq) 30 ml Q12H PRN PO 11/13/16 20:30 (Senokot) 17.2 mg Q12H PRN PO 11/13/16 20:30 (Dulcolax Supp) 10 mg DAILY PRN RECTAL 11/13/16 20:30 (Lactulose Liq) 30 ml DAILY PRN PO 11/13/16 20:30 (Tenormin) 5 mg HS PO 11/13/16 21:00 11/21/16 20:33 ([place] 5-325 Mg) 1 tab Q8H PRN PO 11/13/16 20:30 11/22/16 08:55 (Pravachol) 60 mg HS PO 11/14/16 21:00 11/21/16 20:33 (Glucophage) 500 mg BIDPC PO 11/14/16 09:00 11/22/16 08:33 (Protonix) 20 mg DAILY PO 11/14/16 09:00 11/22/16 08:34 (D50w (Vial) Inj) 50 ml UNSCH PRN IV 11/13/16 20:45 (Glucagon Inj) 1 mg UNSCH PRN OTHER 11/13/16 20:45 (Pill Splitter) 1 ea UNSCH PRN OTHER 11/13/16 23:45 (Protonix Inj) 40 mg Q12H IV PUSH 11/14/16 08:00 11/22/16 08:32 Alprazolam 0.25 mg 0.25 mg HS PO 11/16/16 21:00 11/21/16 20:33 (Rocephin Inj/NS Inj) 100 ml @ 200 mls/hr Q24H IV 11/18/16 15:00 11/21/16 16:21 (Lactinex) 1 tab TID PO 11/18/16 18:00 11/22/16 08:33 (Mycostatin Liq) 5 ml QID SWISH-SWAL 11/18/16 18:00 11/22/16 08:35 (Diflucan) 100 mg DAILY PO 11/20/16 17:00 11/22/16 08:33 (VANCOMYCIN for oral use only) 125 mg QID PO 11/20/16 18:00 11/22/16 08:34 . Family History Patient's father at the age of 59, it is unclear whether the cause of his was secondary to a myocardial infarction or stroke. Patient's mother at the age of 94 with Alzheimer's disease. He has 2 brothers and one sister; apparently his sister has a history of breast cancer. . Substance Use Tobacco: Former smoker, quit in 1992 Alcohol: None known Prescription med abuse: No known prescription drug abuse Illicits: No known illicit use . Psychosocial History Patient is originally from [place], [place]. He is single and never . Brother (Rohit) who lives in [place] is patient's HCS. Patient served in the [employer] for 3 years. 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 The patient moved to [place] in 1958. Spiritual/Cultural Factors Pending further conversations with patient . Health Care Surrogate: Copy in medical record Date completed: 11/22/2016. . Health Care Surrogate(s): Rohit Gilliland, brother: [phone] or [phone] or [phone] . Documented care wishes: Patient states he believes he may have completed a living will previously and copies would be accessible at the [facility] . Today's verbally stated goals: Aggressive goals to the point of cardiopulmonary resuscitation . Family/friends goals: No family/friends are present . Ethical and Legal Issues No known ethical or legal issues at this time. . Physical Exam Vital Signs Date Time Temp Pulse Resp B/P Pulse Ox O2 Delivery O2 Flow Rate FiO2 11/22/16 08:00 98.4 82 16 119/68 100 11/22/16 00:00 97.9 74 20 124/72 100 11/21/16 20:00 97.6 81 20 117/68 99 11/21/16 16:00 98.4 84 16 110/63 98 11/21/16 12:00 95.2 88 16 121/68 99 . 11/21/16 11/22/16 18:59 06:59 Intake Total 340 ml 120 ml Output Total 300 ml 450 ml Balance 40 ml -330 ml Intake Oral 340 ml 120 ml Output Urine Total 300 ml 450 ml # Bowel Movements 3 4 . Exam CONSTITUTIONAL/GENERAL: This is a frail elderly male patient, in no apparent distress. TUBES/LINES/DRAINS: PIV x1, beltran catheter SKIN: No jaundice, rashes, or lesions. Ecchymoses on upper extremities. No wounds seen anteriorly. Skin temperature appropriate. Not diaphoretic. HEAD: Atraumatic. Normocephalic. EYES: Pupils equal and round and reactive. Extraocular motions intact. No scleral icterus. No injection or drainage. Fundi not examined. ENT: Hearing grossly normal. Nose without bleeding or purulent drainage. NECK: Trachea midline. Supple, nontender. CARDIOVASCULAR: Regular rate and rhythm without murmurs, gallops, or rubs. No JVD. Peripheral pulses symmetric. RESPIRATORY/CHEST: Symmetric, unlabored respirations. Clear to auscultation. Breath sounds equal bilaterally. No wheezes, rales, or rhonchi. GASTROINTESTINAL: Abdomen soft, non-tender, nondistended. No hepato-splenomegaly , or palpable masses. No guarding. Bowel sounds present. GENITOURINARY: Without palpable bladder distension. Beltran catheter in place. MUSCULOSKELETAL: Extremities without clubbing, cyanosis, or edema. NEUROLOGICAL: Awake and alert. Oriented x 3. Follows commands. Cognitively sharp. Moves all extremities. PSYCHIATRIC: Despondent, flat affect. . Diagnostic Tests Laboratory Laboratory Tests Test 11/19/16 11/20/16 11/20/16 11/22/16 17:14 06:56 16:39 09:55 Sodium Level 143 MEQ/L 144 MEQ/L 144 MEQ/L 142 MEQ/L (136-145) (136-145) (136-145) (136-145) Potassium Level 3.4 MEQ/L 3.2 MEQ/L 3.8 MEQ/L 3.8 MEQ/L (3.5-5.1) (3.5-5.1) (3.5-5.1) (3.5-5.1) Chloride Level 109 MEQ/L 109 MEQ/L 112 MEQ/L 108 MEQ/L (98-107) (98-107) (98-107) (98-107) Carbon Dioxide Level 21.3 MEQ/L 24.4 MEQ/L 21.6 MEQ/L 25.2 MEQ/L (21.0-32.0) (21.0-32.0) (21.0-32.0) (21.0-32.0) Anion Gap 13 MEQ/L (5-15) 11 MEQ/L (5-15) 10 MEQ/L (5-15) 9 MEQ/L (5-15) White Blood Count 2.6 TH/MM3 1.8 TH/MM3 (4.0-11.0) (4.0-11.0) Red Blood Count 3.69 MIL/MM3 3.63 MIL/MM3 (4.50-5.90) (4.50-5.90) Hemoglobin 11.5 GM/DL 11.0 GM/DL (13.0-17.0) (13.0-17.0) Hematocrit 33.0 % 33.2 % (39.0-51.0) (39.0-51.0) Mean Corpuscular Volume 89.4 FL 91.3 FL (80.0-100.0) (80.0-100.0) Mean Corpuscular Hemoglobin 31.1 PG 30.4 PG (27.0-34.0) (27.0-34.0) Mean Corpuscular Hemoglobin 34.8 % 33.2 % Concent (32.0-36.0) (32.0-36.0) Red Cell Distribution Width 14.6 % 14.9 % (11.6-17.2) (11.6-17.2) Platelet Count 138 TH/MM3 138 TH/MM3 (150-450) (150-450) Mean Platelet Volume 9.2 FL 8.3 FL (7.0-11.0) (7.0-11.0) Neutrophils (%) (Auto) % (16.0-70.0) % (16.0-70.0) Lymphocytes (%) (Auto) % (9.0-44.0) % (9.0-44.0) Monocytes (%) (Auto) % (0.0-8.0) % (0.0-8.0) Eosinophils (%) (Auto) % (0.0-4.0) % (0.0-4.0) Basophils (%) (Auto) % (0.0-2.0) % (0.0-2.0) Neutrophils # (Auto) TH/MM3 TH/MM3 (1.8-7.7) (1.8-7.7) Lymphocytes # (Auto) TH/MM3 TH/MM3 (1.0-4.8) (1.0-4.8) Monocytes # (Auto) TH/MM3 (0-0.9) TH/MM3 (0-0.9) Eosinophils # (Auto) TH/MM3 (0-0.4) TH/MM3 (0-0.4) Basophils # (Auto) TH/MM3 (0-0.2) TH/MM3 (0-0.2) CBC Comment AUTO DIFF AUTO DIFF Differential Total Cells 100 100 Counted Neutrophils % (Manual) 43 % (16-70) 40 % (16-70) Band Neutrophils % 9 % (0-6) 6 % (0-6) Lymphocytes % 36 % (9-44) 28 % (9-44) Monocytes % 8 % (0-8) 10 % (0-8) Eosinophils % 3 % (0-4) 13 % (0-4) Neutrophils # (Manual) 1.4 TH/MM3 0.8 TH/MM3 (1.8-7.7) (1.8-7.7) Myelocytes 1 % (0-0) 1 % (0-0) Differential Comment FINAL DIFF FINAL DIFF MANUAL MANUAL Platelet Estimate LOW (NORMAL) LOW (NORMAL) Platelet Morphology Comment NORMAL NORMAL (NORMAL) (NORMAL) Ovalocytes 1+ (NORMAL) 1+ (NORMAL) Blood Urea Nitrogen 12 MG/DL (7-18) 16 MG/DL (7-18) Creatinine 1.27 MG/DL 1.15 MG/DL (0.60-1.30) (0.60-1.30) Estimat Glomerular Filtration 54 ML/MIN (>89) 61 ML/MIN (>89) Rate Random Glucose 135 MG/DL 141 MG/DL (74-106) (74-106) Calcium Level 8.6 MG/DL 8.6 MG/DL (8.5-10.1) (8.5-10.1) Magnesium Level 1.8 MG/DL 2.0 MG/DL (1.5-2.5) (1.5-2.5) Basophils % 2 % (0-2) Dohle Bodies PRESENT (NONE SEEN) Acanthocytes OCC (NORMAL) . Result Diagram: 11/22/16 0955 11/22/16 0955 Patient/Family Conference Present at Family Conference: Met with patient at bedside. Also present JUAN Monreal. . Family Conference Location: Bedside Issues Discussed: * Palliative care role, purpose, approach * Additional medical, psychosocial, and spiritual history * Patients general health, functional status, and cognitive changes in the months leading up to the current hospitalization * Patient/family understanding of the current medical problems * Patient/family understanding of prognosis * Patients goals of care as best understood from advance directives and/or conversations and/or values * Current medical treatment options and benefits/burdens of those options * Likely scenarios comparing ongoing aggressive care with a transition to comfort measures only * Questions answered to the best of my ability . Assessment and Plan Disease Oriented Problem List: (1) Hyperlipidemia (2) GERD (gastroesophageal reflux disease) (3) Afib (4) UTI (urinary tract infection) (5) Neutropenia (6) Sepsis (7) Diabetes (8) Hyperlipidemia (9) Neutropenia (10) Hypertension (11) Mantle cell lymphoma (12) History of bladder cancer (13) History of prostate cancer Symptom Scale: (1) Pain (2) Debility (3) Diarrhea (4) Depression Pertinent Non-Medical Issues Psychosocial: Patient is originally from [place], [place]. He is single and never . Brother (Rohit) who lives in [place] is patient's HCS. Patient served in the [employer] for 3 years. 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 The patient moved to [place] in 9. Spiritual: Pending further conversations with patient. Legal: Patient has designated his brother Rohit Gilliland as the healthcare surrogate decision maker, document completed on 11/22/2016 Ethical issues impacting care: No known ethical issues impacting care. . Important Contacts Rohit Gilliland brother: [phone] or [phone] . Prognosis Mr. Gilliland is an 81-year-old male with an extensive past medical history that includes multiple types of cancer. He is hospitalized with severe sepsis- Klebsiella pneumoniae; UTIKlebsiella pneumoniae; acute neutropenia; thrombocytopenia and C. difficile. Prior to this hospitalization the patient states he was living independently. He reports a decline over the past year with associated weight loss and increased weakness. His appetite is poor. However, patient appears to be responding to current medical regimen. He is verbalizing frustration and states "I just wanted over" but Patient will require placement at SNF for rehabilitation upon discharge.. If the patient remains motivated and compliant, there is a reasonable chance he will be able to return to his home at some point in the future although he may require some assistance with ADLs. Prognosis Guarded. . Code Status: No Code Plan * NO CODE * Decision-making: Patient has designated his brother, Rohit Gilliland, as his healthcare surrogate decision maker. Health care surrogate see form completed . Copies of the completed document placed in patient's paper chart and faxed to HIM to be scanned into the patient's EMR. * Living will information left at patient's bedside to be reviewed; patient states [facility] * Goals: Goals are aggressive up to the point of cardiopulmonary resuscitation. * An in-depth conversation was had with this patient about CODE STATUS including compressions, ACLS medications, cardioversion and intubation/ mechanical ventilation. Patient quickly shakes his head saying "none of that". In reviewing notes from prior hospitalizations, the patient was previously a NO CODE. CODE STATUS changed to NO CODEDNR/DNI * Symptom managementpain: Patient reporting severe, ongoing penile pain since status post cystoscopy with bladder tumor resection on 10/30/2016. PRN Acetaminophen and [place] are being sparingly used. Recommendations for frequent reassessments for pain, which may be contributing to patient's despondency. * Symptom managementdebility: Patient was living alone and independently prior to this hospitalization. He reports a decline over the past year with associated weight loss and increased weakness. His appetite is poor. Physical therapy is following. Patient will likely require placement at SNF for rehabilitation upon discharge; patient is hopeful he will be able to return to his home in the future. * Symptom managementdiarrhea: Patient is currently being treated for C. difficile, appears to be responding to current medical regime. * Symptom managementdepression: Patient has become despondent, making statement that he does not know if he wants to continue with care. He is verbalizing frustration and states "I just wanted over" but after further conversations about medical treatment goals, aggressive interventions versus comfort focus care. We discussed what transition to comfort focused care may look like and the patient responded "You mean Dr. Valencia, that's what I want. " However after further explanation about comfort focus care/hospice, the patient indicates he wishes to proceed with aggressive interventions. Recommendation to start this patient on an anti-depressant. * Palliative care will continue to follow this patient throughout his hospitalization to establish trust, assist with symptom management and clarification of medical treatment goals. . Thank you for the opportunity to participate in the care of Mr. Gilliland. Maricarmen Christian Nov 22, 2016 12:25
[2016-11-22] MEDS: cefTRIAXone INJ 2,000 MG in SODIUM CHLORIDE 0.9% INJ 100 ML IV SCH (14:34)
--- NOTE | 2016-11-22 15:38 | HHI.IDPN ---
Note Infectious Disease Note Patient still has poor taste. RN reports that he is no eating much. Still has loose stools but reports it is less frequent. Denies abdominal pain. No fever. PAST MEDICAL HISTORY Prostate cancer. Recent prostate procedure on October 28 and subsequent placement of Delgado catheter. The patient had a Delgado catheter in place when he presented to the emergency department. Atrial fibrillation, hypertension, history of the CVA, diabetes mellitus, history of bladder cancer, diminished hearing, bladder cancer surgery, bilateral cataract surgery, prostatectomy. ALLERGIES NO KNOWN DRUG ALLERGIES. ANTIBIOTICS: Ceftriaxone. PO Vancomycin. Nystatin S & S. OBJECTIVE: Vital Signs Date Time Temp Pulse Resp B/P Pulse Ox O2 Delivery O2 Flow Rate FiO2 11/22/16 12:00 97.4 77 17 125/70 100 11/22/16 08:00 98.4 82 16 119/68 100 11/22/16 00:00 97.9 74 20 124/72 100 11/21/16 20:00 97.6 81 20 117/68 99 11/21/16 16:00 98.4 84 16 110/63 98 11/21/16 11/21/16 11/22/16 15:00 23:00 07:00 Intake Total 340 ml 120 ml Output Total 300 ml 450 ml Balance 40 ml -330 ml Intake Oral 340 ml 120 ml Output Urine Total 300 ml 450 ml # Bowel Movements 3 4 Laboratory Tests Test 11/22/16 09:55 White Blood Count 1.8 TH/MM3 Red Blood Count 3.63 MIL/MM3 Hemoglobin 11.0 GM/DL Hematocrit 33.2 % Mean Corpuscular Volume 91.3 FL Mean Corpuscular Hemoglobin 30.4 PG Mean Corpuscular Hemoglobin 33.2 % Concent Red Cell Distribution Width 14.9 % Platelet Count 138 TH/MM3 Mean Platelet Volume 8.3 FL Neutrophils (%) (Auto) % Lymphocytes (%) (Auto) % Monocytes (%) (Auto) % Eosinophils (%) (Auto) % Basophils (%) (Auto) % Neutrophils # (Auto) TH/MM3 Lymphocytes # (Auto) TH/MM3 Monocytes # (Auto) TH/MM3 Eosinophils # (Auto) TH/MM3 Basophils # (Auto) TH/MM3 CBC Comment AUTO DIFF Differential Total Cells 100 Counted Neutrophils % (Manual) 40 % Band Neutrophils % 6 % Lymphocytes % 28 % Monocytes % 10 % Eosinophils % 13 % Basophils % 2 % Neutrophils # (Manual) 0.8 TH/MM3 Myelocytes 1 % Differential Comment FINAL DIFF MANUAL Dohle Bodies PRESENT Platelet Estimate LOW Platelet Morphology Comment NORMAL Ovalocytes 1+ Acanthocytes OCC Laboratory Tests Test 11/20/16 11/22/16 16:39 09:55 Sodium Level 144 MEQ/L 142 MEQ/L Potassium Level 3.8 MEQ/L 3.8 MEQ/L Chloride Level 112 MEQ/L 108 MEQ/L Carbon Dioxide Level 21.6 MEQ/L 25.2 MEQ/L Anion Gap 10 MEQ/L 9 MEQ/L Blood Urea Nitrogen 16 MG/DL Creatinine 1.15 MG/DL Estimat Glomerular Filtration 61 ML/MIN Rate Random Glucose 141 MG/DL Calcium Level 8.6 MG/DL Magnesium Level 2.0 MG/DL PHYSICAL EXAMINATION GENERAL: No acute distress. HEENT: Head atraumatic. No icterus. Oropharynx dry mucosa NECK: Supple. No adenopathy. LUNGS: Clear breath sounds. HEART: Irregular S1-S2. No audible murmurs. ABDOMEN: Soft, no tenderness. EXTREMITIES: No clubbing or cyanosis or edema. SKIN: No rash. The skin is warm and moist. NEURO: No gross focal findings. Alert,awake. PSYCHIATRIC: Calm and cooperative. IMPRESSION 1. Sepsis Klebsiella - pneumoniae. 2. Urinary tract infection - klebsiella pneumoniae. 3. Neutropenia. WBC trending down again. ? from vancomycin. 4. Thrombocytopenia. Improving. RECOMMENDATIONS 1. Stop Ceftriaxone. 2. Stop Vancomycin. Start Dificid 10 days for c. dif. 3. Stop Diflucan. 4. Continue Lactinex PO. 5. Monitor blood counts. 6. Monitor renal function. Jese Cardona MD Nov 22, 2016 15:38
[2016-11-22 16:00] VITALS: BP 121/66; PULSE 80; RESP 16; TEMP 97.1; O2SAT 98
[2016-11-22 20:00] VITALS: BP 140/67; PULSE 98; RESP 20; TEMP 98.2; O2SAT 98
[2016-11-22] MEDS: PRAVASTATIN SOD 20 MG TAB PO SCH (20:28)
[2016-11-22] MEDS: ATENOLOL 25 MG TAB PO SCH (20:28)
[2016-11-22] MEDS: FIDAXOMICIN 200 MG TAB PO SCH (20:28)
[2016-11-22] MEDS: ALPRAZolam 0.25 MG TAB PO SCH (20:28)
[2016-11-23] VITALS: BP 116/60; PULSE 82; RESP 20; TEMP 97.6; O2SAT 97
[2016-11-23] MEDS: INSULIN ASPART SUPPLEMENTAL SCALE SQ SCH ×4 (06:41→21:00)
[2016-11-23 08:00] VITALS: BP 138/71; PULSE 76; RESP 19; TEMP 98.4; O2SAT 98
[2016-11-23] MEDS: PANTOPRAZOLE SODIUM 40 MG VIAL IV PUSH SCH ×2 (08:00→21:54)
[2016-11-23] MEDS: DOCUSATE SODIUM 50 MG/SENNA 8.6 MG TAB PO SCH ×2 (09:00→21:53)
[2016-11-23] MEDS: FIDAXOMICIN 200 MG TAB PO SCH ×2 (09:02→21:53)
[2016-11-23] MEDS: LACTOBACILLUS ACIDOPHILUS TAB PO SCH ×3 (09:02→17:36)
[2016-11-23] MEDS: NYSTATIN SUSP 500,000 U/5 ML CUP SWISH-SWAL SCH ×4 (09:02→21:54)
[2016-11-23] MEDS: PANTOPRAZOLE SOD 20 MG DELAYED RELEASE TAB PO SCH (09:02)
[2016-11-23] MEDS: metFORMIN HCL 500 MG TAB PO SCH ×2 (09:02→17:36)
[2016-11-23] MEDS: SODIUM CHLORIDE 0.9% FLUSH 10 ML FLUSH IV FLUSH SCH ×2 (09:03→21:00)
[2016-11-23 11:31] LABS: HEMATOCRIT 33.8 % (39.0-51.0); MEAN CELL VOLUME 90.8 FL (80.0-100.0); MEAN CORPUSCULAR HEMOGLOBIN 29.9 PG (27.0-34.0); MEAN CORPUSCULAR HGB CONC 32.9 % (32.0-36.0); PLATELET COUNT 162 TH/MM3 (150-450); RED BLOOD COUNT 3.72 MIL/MM3 (4.50-5.90); RED CELL DISTRIBUTION WIDTH 14.9 % (11.6-17.2); WHITE BLOOD COUNT 1.8 TH/MM3 (4.0-11.0)
[2016-11-23 11:45] LABS: HEMO FLAGS AUTO DIFF
[2016-11-23 11:49] LABS: BACTERIA, URINE OCC /hpf; BLOOD, URINE MOD (NEG); GLUCOSE,URINE NEG (NEG); HYALINE CAST, URINE 1 /lpf (RARE); KETONE, URINE NEG (NEG); MUCUS URINE FEW /lpf (OCC); NITRITE,URINE NEG (NEG); URINE COLOR YELLOW (YELLW/STRAW)
[2016-11-23 11:50] LABS: BICARBONATE 26.8 MEQ/L (21.0-32.0); POTASSIUM 3.9 MEQ/L (3.5-5.1)
[2016-11-23 11:50] LABS: COMMENT (UR) CATH-CULTURE IND; CULTURE IF INDICATED CATH CULTURE IND
[2016-11-23 12:00] VITALS: BP_SYST 125; BP_SYST 135; BP_DIAS 66; BP_DIAS 76; PULSE 79; PULSE 83; RESP 17; RESP 18; TEMP 97.5; TEMP 97.6; O2SAT 100; O2SAT 98
[2016-11-23 12:33] LABS: BANDS 9 % (0-6); BASOPHILS 2 % (0-2); DOHLE BODIES PRESENT (NONE SEEN); EOSINOPHILS 12 % (0-4); METAMYELOCYTES 1 % (0-1); MYELOCYTES 2 % (0-0); NEUTROPHIL # MANUAL DIFF 0.7 TH/MM3 (1.8-7.7); OVALOCYTES 1+ (NORMAL); PLATELET ESTIMATE SMEAR NORMAL (NORMAL); PLATELET MORPHOLOGY NORMAL (NORMAL); POLYS (SEG NEUTROPHILS) 26 % (16-70); SCAN/DIFF FINAL DIFF MANUAL; WBC DIFF SAMPLE 100
[2016-11-23 20:00] VITALS: BP 160/80; PULSE 85; RESP 16; TEMP 97.5; O2SAT 98
[2016-11-23] MEDS: PRAVASTATIN SOD 20 MG TAB PO SCH (21:53)
[2016-11-23] MEDS: ALPRAZolam 0.25 MG TAB PO SCH (21:54)
[2016-11-23] MEDS: ATENOLOL 25 MG TAB PO SCH (22:03)
[2016-11-24] VITALS: BP 156/68; PULSE 90; RESP 16; TEMP 96.9; O2SAT 96
[2016-11-24 05:08] LABS: AUTOMATED NEUTROPHIL # 0.7 TH/MM3 (1.8-7.7); BASOPHIL % 0.6 % (0.0-2.0); EOSINOPHIL # 0.2 TH/MM3 (0-0.4); EOSINOPHIL % 9.9 % (0.0-4.0); HEMATOCRIT 31.9 % (39.0-51.0); LYMPH % 34.5 % (9.0-44.0); LYMPHOCYTE # 0.6 TH/MM3 (1.0-4.8); MEAN CELL VOLUME 89.2 FL (80.0-100.0); MEAN CORPUSCULAR HEMOGLOBIN 30.6 PG (27.0-34.0); MEAN CORPUSCULAR HGB CONC 34.4 % (32.0-36.0); MONO % 12.5 % (0.0-8.0); NEUT % 42.5 % (16.0-70.0); PLATELET COUNT 154 TH/MM3 (150-450); RED BLOOD COUNT 3.57 MIL/MM3 (4.50-5.90); RED CELL DISTRIBUTION WIDTH 14.4 % (11.6-17.2); WHITE BLOOD COUNT 1.6 TH/MM3 (4.0-11.0)
[2016-11-24 05:15] LABS: HEMO FLAGS AUTO DIFF
[2016-11-24 05:31] LABS: BICARBONATE 25.3 MEQ/L (21.0-32.0); POTASSIUM 3.7 MEQ/L (3.5-5.1)
[2016-11-24] MEDS: INSULIN ASPART SUPPLEMENTAL SCALE SQ SCH ×4 (06:29→20:04)
[2016-11-24] MEDS: PANTOPRAZOLE SODIUM 40 MG VIAL IV PUSH SCH ×2 (07:23→19:54)
[2016-11-24 08:00] VITALS: BP 138/74; PULSE 83; RESP 17; TEMP 96.3; O2SAT 97
[2016-11-24] MEDS: DOCUSATE SODIUM 50 MG/SENNA 8.6 MG TAB PO SCH ×2 (09:00→19:54)
[2016-11-24] MEDS: LACTOBACILLUS ACIDOPHILUS TAB PO SCH ×3 (09:29→16:58)
[2016-11-24] MEDS: SODIUM CHLORIDE 0.9% FLUSH 10 ML FLUSH IV FLUSH SCH ×2 (09:29→20:07)
[2016-11-24] MEDS: PANTOPRAZOLE SOD 20 MG DELAYED RELEASE TAB PO SCH (09:30)
[2016-11-24] MEDS: NYSTATIN SUSP 500,000 U/5 ML CUP SWISH-SWAL SCH ×4 (09:30→19:54)
[2016-11-24] MEDS: metFORMIN HCL 500 MG TAB PO SCH ×2 (09:30→16:58)
[2016-11-24] MEDS: FIDAXOMICIN 200 MG TAB PO SCH ×2 (09:30→19:54)
[2016-11-24 11:16] LABS: BANDS 6 % (0-6); BASOPHILS 3 % (0-2); EOSINOPHILS 7 % (0-4); NEUTROPHIL # MANUAL DIFF 0.6 TH/MM3 (1.8-7.7); POLYS (SEG NEUTROPHILS) 30 % (16-70); WBC DIFF SAMPLE 100
[2016-11-24 11:17] LABS: OVALOCYTES 1+ (NORMAL); PLATELET ESTIMATE SMEAR NORMAL (NORMAL); PLATELET MORPHOLOGY NORMAL (NORMAL); SCAN/DIFF FINAL DIFF MANUAL
[2016-11-24 12:00] VITALS: BP 137/77; PULSE 89; RESP 16; TEMP 95.3; O2SAT 98
--- NOTE | 2016-11-24 15:59 | HHI.PR ---
Subjective Remarks He is currently lying in bed and is rather despondent. He expressed that he is rather tired of his situation. He really wishes it was his time to leave this earth. He still reports a very poor appetite also. He feels that he is not motivated to do much of anything because he feels that it is his time to leave the land of the living. Objective - Vital Signs Date Time Temp Pulse Resp B/P Pulse Ox O2 Delivery O2 Flow Rate FiO2 11/24/16 12:00 95.3 89 16 137/77 98 11/24/16 08:00 96.3 83 17 138/74 97 11/24/16 00:00 96.9 90 16 156/68 96 11/23/16 20:00 97.5 85 16 160/80 98 I/O 11/23/16 11/23/16 11/23/16 11/24/16 11/24/16 11/24/16 06:59 14:59 22:59 06:59 14:59 22:59 Intake Total 360 ml 475 ml 475 ml Output Total 1800 ml 600 ml 250 ml 650 ml Balance -1440 ml -125 ml -250 ml -175 ml Intake Oral 360 ml 475 ml 475 ml Output Urine Total 1800 ml 600 ml 250 ml 650 ml # Voids 2 # Bowel Movements 2 2 1 Result Diagram: 11/24/16 0436 11/24/16435 Objective Remarks GENERAL: He is alert and appears despondent. SKIN: Warm and dry. HEAD: Normocephalic. EYES: No scleral icterus. No injection or drainage. NECK: Supple, trachea midline. No JVD or lymphadenopathy. CARDIOVASCULAR: Regular rate and rhythm without murmurs, gallops, or rubs. RESPIRATORY: Breath sounds equal bilaterally. No accessory muscle use. GASTROINTESTINAL: Abdomen soft, non-tender, nondistended. MUSCULOSKELETAL: No cyanosis, or edema. BACK: Nontender without obvious deformity. No CVA tenderness. A/P Assessment and Plan ASSESSMENT 1. Acute Neutropenic Sepsis-improving with less neutropenia. 2. Hypotension-resolved. 3. Urinary Tract Infection, on admission. 4. C. Difficile Colitis-appears improving. 5. Anemia with Thrombocytopenia. 6. Prostate Cancer. 7. Bladder Cancer. 8. Right Lung Cancer. 9. Mantle Cell Lymphoma, Stage 4B. 10. Diabetes Mellitus, Type 2. 11. Hypertension. 12. Hyperlipidemia. 13. Depressed Mood. PLAN 1. Continue with Physical Therapy for his activity. 2. Follow up laboratory assessment is pending. 3. Infectious Disease follows. 4. Monitor his oral intake closely. 5. Use of an antidepressant along with the antianxiety medication. 6. Will ask Palliative Care to see him again. 7. DVT, PE and PUD prophylaxis. Quang Mcdonough MD Nov 24, 2016 15:59
[2016-11-24 16:00] VITALS: BP 159/87; PULSE 96; RESP 15; TEMP 97.9; O2SAT 99
[2016-11-24] MEDS: ALPRAZolam 0.25 MG TAB PO SCH (19:55)
[2016-11-24] MEDS: PRAVASTATIN SOD 20 MG TAB PO SCH (19:55)
[2016-11-24 20:00] VITALS: BP 140/83; PULSE 97; RESP 18; TEMP 97.5; O2SAT 98
[2016-11-24] MEDS: ATENOLOL 25 MG TAB PO SCH (20:06)
[2016-11-25] VITALS: BP 122/76; PULSE 105; RESP 18; TEMP 98.1; O2SAT 97
[2016-11-25] MEDS: INSULIN ASPART SUPPLEMENTAL SCALE SQ SCH ×4 (06:31→21:00)
[2016-11-25 07:15] LABS: AUTOMATED NEUTROPHIL # 0.8 TH/MM3 (1.8-7.7); BASOPHIL % 1.9 % (0.0-2.0); EOSINOPHIL # 0.2 TH/MM3 (0-0.4); EOSINOPHIL % 8.5 % (0.0-4.0); HEMATOCRIT 32.4 % (39.0-51.0); LYMPH % 32.8 % (9.0-44.0); LYMPHOCYTE # 0.6 TH/MM3 (1.0-4.8); MEAN CELL VOLUME 90.5 FL (80.0-100.0); MEAN CORPUSCULAR HEMOGLOBIN 31.1 PG (27.0-34.0); MEAN CORPUSCULAR HGB CONC 34.3 % (32.0-36.0); NEUT % 42.8 % (16.0-70.0); PLATELET COUNT 168 TH/MM3 (150-450); RED BLOOD COUNT 3.58 MIL/MM3 (4.50-5.90); RED CELL DISTRIBUTION WIDTH 14.6 % (11.6-17.2); WHITE BLOOD COUNT 1.9 TH/MM3 (4.0-11.0)
[2016-11-25 07:18] LABS: HEMO FLAGS AUTO DIFF
[2016-11-25 07:49] LABS: MAGNESIUM 2.2 MG/DL (1.5-2.5)
[2016-11-25 08:00] VITALS: BP 133/76; PULSE 103; RESP 20; TEMP 98.1; O2SAT 96
[2016-11-25] MEDS: PANTOPRAZOLE SODIUM 40 MG VIAL IV PUSH SCH ×2 (08:00→23:09)
[2016-11-25 08:03] LABS: WESTERGREN SEDIMENTATION RATE 45 mm/hr (0-20)
[2016-11-25 08:24] VITALS: BP 133/76; PULSE 103; RESP 20; TEMP 98.1; O2SAT 96
[2016-11-25 08:39] LABS: BANDS 11 % (0-6); EOSINOPHILS 5 % (0-4); NEUTROPHIL # MANUAL DIFF 1.3 TH/MM3 (1.8-7.7); OVALOCYTES 2+ (NORMAL); POLYS (SEG NEUTROPHILS) 56 % (16-70); WBC DIFF SAMPLE 100
[2016-11-25 08:40] LABS: PLATELET ESTIMATE SMEAR NORMAL (NORMAL); PLATELET MORPHOLOGY NORMAL (NORMAL); SCAN/DIFF FINAL DIFF MANUAL
[2016-11-25] MEDS: NYSTATIN SUSP 500,000 U/5 ML CUP SWISH-SWAL SCH ×3 (08:50→23:10)
[2016-11-25] MEDS: metFORMIN HCL 500 MG TAB PO SCH ×2 (08:50→16:52)
[2016-11-25] MEDS: DOCUSATE SODIUM 50 MG/SENNA 8.6 MG TAB PO SCH ×2 (08:50→21:00)
[2016-11-25] MEDS: FIDAXOMICIN 200 MG TAB PO SCH ×2 (08:50→23:09)
[2016-11-25] MEDS: PANTOPRAZOLE SOD 20 MG DELAYED RELEASE TAB PO SCH (08:50)
[2016-11-25] MEDS: LACTOBACILLUS ACIDOPHILUS TAB PO SCH ×2 (08:50→16:53)
[2016-11-25] MEDS: SODIUM CHLORIDE 0.9% FLUSH 10 ML FLUSH IV FLUSH SCH ×2 (08:51→23:09)
[2016-11-25 12:00] VITALS: BP 132/85; PULSE 93; RESP 18; TEMP 98.5; O2SAT 96
--- NOTE | 2016-11-25 14:31 | HHI.HCPN ---
Received call patient was inquiring about hospice services. Spoke with nurse who reports Mr. Gilliland complains of pain that comes and goes, refuses to take any pain medication because by the time it works the pain is already gone. Met with Mr. Gilliland. He is lying in bed, awake and able to make needs known. Appropriate in conversation. He verbalizes he does have pain in his penis when he urinates, states it comes and goes. Inquired about refusal to take pain medication, he states "it comes and goes". Open to having medications reviewed to see if something more appropriate for type of pain is available. Will ask palliative POOL MANAGER to review medications. Mr. Gilliland denies any other concerns. Gently discussed hospice services with him. He confirms he does wish to meet with them. Inquired if he wants anyone else present for meeting. He declines and states he feels "everyone has the right to say when it's their time". Mr. Gilliland is appropriately tearful. Reviewed medical things he has been through and he states he wishes he wasn't as strong a man so he "could just go". Offered emotional support. Informed palliative POOL MANAGER to place hospice consult. Palliative care will continue to follow throughout hospitalization. Sima Moise, [employer] Nov 25, 2016 14:31
--- NOTE | 2016-11-25 15:45 | HHI.IDPN ---
Note Infectious Disease Note Patient eating better. Has fewer stools. Denies abdominal pain. Complains of pain in the penis. Has beltran in place. No fever. PAST MEDICAL HISTORY Prostate cancer. Recent prostate procedure on October 28 and subsequent placement of Beltran catheter. The patient had a Beltran catheter in place when he presented to the emergency department. Atrial fibrillation, hypertension, history of the CVA, diabetes mellitus, history of bladder cancer, diminished hearing, bladder cancer surgery, bilateral cataract surgery, prostatectomy. ALLERGIES NO KNOWN DRUG ALLERGIES. ANTIBIOTICS: Dificid OBJECTIVE: Vital Signs Date Time Temp Pulse Resp B/P Pulse Ox O2 Delivery O2 Flow Rate FiO2 11/25/16 12:00 98.5 93 18 132/85 96 11/25/16 08:24 98.1 103 20 133/76 96 11/25/16 08:00 98.1 103 20 133/76 96 11/25/16 00:00 98.1 105 18 122/76 97 11/24/16 20:00 97.5 97 18 140/83 98 11/24/16 16:00 97.9 96 15 159/87 99 11/24/16 11/24/16 11/25/16 15:00 23:00 07:00 Intake Total 475 ml Output Total 650 ml 200 ml 100 ml Balance -175 ml -200 ml -100 ml Intake Oral 475 ml Output Urine Total 650 ml 200 ml 100 ml # Bowel Movements 1 2 Laboratory Tests Test 11/24/16 11/25/16 04:36 06:50 White Blood Count 1.6 TH/MM3 1.9 TH/MM3 Red Blood Count 3.57 MIL/MM3 3.58 MIL/MM3 Hemoglobin 10.9 GM/DL 11.1 GM/DL Hematocrit 31.9 % 32.4 % Mean Corpuscular Volume 89.2 FL 90.5 FL Mean Corpuscular Hemoglobin 30.6 PG 31.1 PG Mean Corpuscular Hemoglobin 34.4 % 34.3 % Concent Red Cell Distribution Width 14.4 % 14.6 % Platelet Count 154 TH/MM3 168 TH/MM3 Mean Platelet Volume 9.4 FL 8.8 FL Neutrophils (%) (Auto) 42.5 % 42.8 % Lymphocytes (%) (Auto) 34.5 % 32.8 % Monocytes (%) (Auto) 12.5 % 14.0 % Eosinophils (%) (Auto) 9.9 % 8.5 % Basophils (%) (Auto) 0.6 % 1.9 % Neutrophils # (Auto) 0.7 TH/MM3 0.8 TH/MM3 Lymphocytes # (Auto) 0.6 TH/MM3 0.6 TH/MM3 Monocytes # (Auto) 0.2 TH/MM3 0.3 TH/MM3 Eosinophils # (Auto) 0.2 TH/MM3 0.2 TH/MM3 Basophils # (Auto) 0.0 TH/MM3 0.0 TH/MM3 CBC Comment AUTO DIFF AUTO DIFF Differential Total Cells 100 100 Counted Neutrophils % (Manual) 30 % 56 % Band Neutrophils % 6 % 11 % Lymphocytes % 41 % 24 % Monocytes % 13 % 4 % Eosinophils % 7 % 5 % Basophils % 3 % Neutrophils # (Manual) 0.6 TH/MM3 1.3 TH/MM3 Differential Comment FINAL DIFF FINAL DIFF MANUAL MANUAL Atypical Lymphocytes % Platelet Estimate NORMAL NORMAL Platelet Morphology Comment NORMAL NORMAL Ovalocytes 1+ 2+ Erythrocyte Sedimentation Rate 45 mm/hr Laboratory Tests Test 11/24/16 11/25/16 04:36 06:30 Sodium Level 141 MEQ/L 142 MEQ/L Potassium Level 3.7 MEQ/L 4.0 MEQ/L Chloride Level 106 MEQ/L 106 MEQ/L Carbon Dioxide Level 25.3 MEQ/L 25.0 MEQ/L Anion Gap 10 MEQ/L 11 MEQ/L Blood Urea Nitrogen 16 MG/DL 16 MG/DL Creatinine 1.19 MG/DL 1.24 MG/DL Estimat Glomerular Filtration 59 ML/MIN 56 ML/MIN Rate Random Glucose 140 MG/DL 113 MG/DL Calcium Level 8.5 MG/DL 9.0 MG/DL Magnesium Level 2.2 MG/DL C-Reactive Protein 2.29 MG/DL PHYSICAL EXAMINATION GENERAL: No acute distress. HEENT: Head atraumatic. No icterus. NECK: Supple. No adenopathy. LUNGS: Clear breath sounds. HEART: Irregular S1-S2. No murmurs. ABDOMEN: Soft, no tenderness. Decreased bowel sounds. EXTREMITIES: No clubbing or cyanosis or edema. SKIN: No rash. NEURO: No gross focal findings. Alert,awake. PSYCHIATRIC: Calm and cooperative. IMPRESSION 1. Sepsis Klebsiella - pneumoniae. Treated. 2. Urinary tract infection - klebsiella pneumoniae. 3. Neutropenia. WBC improved. 4. Thrombocytopenia. Improving. 5. C. difficile colitis. RECOMMENDATIONS 1. continue Dificid for 10 day duration. 2. Continue Lactinex PO. 3. Monitor blood counts. Recheck stool c. diff. Jese Cardona MD Nov 25, 2016 15:45
[2016-11-25 16:00] VITALS: BP 122/80; PULSE 89; RESP 18; TEMP 96.9; O2SAT 97
--- NOTE | 2016-11-25 18:49 | HHI.PR ---
Subjective Remarks He appears about the same with regard to his mentation and affect. He still appears despondent. He was seen by Palliative Care earlier and expressed desire for a meeting with Hospice. He now expresses that he is not sure he wants to consider Hospice. Objective - Vital Signs Date Time Temp Pulse Resp B/P Pulse Ox O2 Delivery O2 Flow Rate FiO2 11/25/16 16:00 96.9 89 18 122/80 97 11/25/16 16:00 96.9 89 18 122/80 97 11/25/16 12:00 98.5 93 18 132/85 96 11/25/16 08:24 98.1 103 20 133/76 96 11/25/16 08:00 98.1 103 20 133/76 96 11/25/16 00:00 98.1 105 18 122/76 97 11/24/16 20:00 97.5 97 18 140/83 98 I/O 11/24/16 11/24/16 11/24/16 11/25/16 11/25/16 11/25/16 07:00 15:00 23:00 07:00 15:00 23:00 Intake Total 475 ml 1080 ml Output Total 650 ml 200 ml 100 ml 720 ml Balance -175 ml -200 ml -100 ml 360 ml Intake Oral 475 ml 1080 ml Output Urine Total 650 ml 200 ml 100 ml 720 ml # Voids 2 # Bowel Movements 2 1 2 1 Result Diagram: 11/25/16 0650 11/25/16 0630 Objective Remarks GENERAL: Alert. Very depressed mood. SKIN: Warm and dry. HEAD: Normocephalic. EYES: No scleral icterus. No injection or drainage. NECK: Supple, trachea midline. No JVD or lymphadenopathy. CARDIOVASCULAR: Regular rate and rhythm without murmurs, gallops, or rubs. RESPIRATORY: Breath sounds equal bilaterally. No accessory muscle use. GASTROINTESTINAL: Abdomen soft, non-tender, nondistended. MUSCULOSKELETAL: No cyanosis, or edema. BACK: Nontender without obvious deformity. No CVA tenderness. A/P Assessment and Plan ASSESSMENT 1. Acute Neutropenic Sepsis-improving with less neutropenia. 2. Hypotension-resolved. 3. Urinary Tract Infection, on admission. 4. C. Difficile Colitis-appears improving. 5. Anemia with Thrombocytopenia. 6. Prostate Cancer. 7. Bladder Cancer. 8. Right Lung Cancer. 9. Mantle Cell Lymphoma, Stage 4B. 10. Diabetes Mellitus, Type 2. 11. Hypertension. 12. Hyperlipidemia. 13. Depressed Mood. PLAN 1. Continue with Physical Therapy for his activity. 2. Follow up laboratory assessment is pending. 3. Infectious Disease follows. 4. Monitor his oral intake closely. 5. Use of an antidepressant along with the antianxiety medication. 6. Hospice to discuss services with him. 7. DVT, PE and PUD prophylaxis. Quang Mcdonough MD Nov 25, 2016 18:49
[2016-11-25 20:00] VITALS: BP 101/62; PULSE 92; RESP 19; TEMP 96.8; O2SAT 96
[2016-11-25] MEDS: ATENOLOL 25 MG TAB PO SCH (21:00)
[2016-11-25] MEDS: ALPRAZolam 0.25 MG TAB PO SCH (23:10)
[2016-11-25] MEDS: PRAVASTATIN SOD 20 MG TAB PO SCH (23:24)
[2016-11-26] VITALS: BP 117/69; PULSE 105; RESP 20; TEMP 96.2; O2SAT 97
[2016-11-26 00:38] LABS: C. DIFF EPI 027 PRESUMPTIVE NEGATIVE (NEGATIVE); C. DIFF TOXIN PCR NEGATIVE (NEGATIVE)
[2016-11-26] MEDS: INSULIN ASPART SUPPLEMENTAL SCALE SQ SCH ×4 (07:00→21:00)
[2016-11-26 08:00] VITALS: BP 137/65; PULSE 102; RESP 18; TEMP 98.1; O2SAT 96
[2016-11-26] MEDS: metFORMIN HCL 500 MG TAB PO SCH ×2 (09:32→17:09)
[2016-11-26] MEDS: NYSTATIN SUSP 500,000 U/5 ML CUP SWISH-SWAL SCH ×4 (09:32→20:49)
[2016-11-26] MEDS: FIDAXOMICIN 200 MG TAB PO SCH ×2 (09:32→20:50)
[2016-11-26] MEDS: DOCUSATE SODIUM 50 MG/SENNA 8.6 MG TAB PO SCH ×2 (09:32→20:50)
[2016-11-26] MEDS: VENLAFAXINE HCL XR 75 MG CAP PO SCH (09:32)
[2016-11-26] MEDS: SODIUM CHLORIDE 0.9% FLUSH 10 ML FLUSH IV FLUSH SCH ×2 (09:32→20:50)
[2016-11-26] MEDS: PANTOPRAZOLE SOD 20 MG DELAYED RELEASE TAB PO SCH (09:32)
[2016-11-26] MEDS: PANTOPRAZOLE SODIUM 40 MG VIAL IV PUSH SCH ×2 (09:32→20:50)
[2016-11-26] MEDS: LACTOBACILLUS ACIDOPHILUS TAB PO SCH ×3 (09:32→17:08)
[2016-11-26 12:00] VITALS: BP 129/68; PULSE 101; RESP 18; TEMP 98.6; O2SAT 96
--- NOTE | 2016-11-26 13:22 | HHI.IDPN ---
Note Infectious Disease Note Patient feels okay. Has mushy stools. Denies abdominal pain. No fever. No new complaints. PAST MEDICAL HISTORY Prostate cancer. Recent prostate procedure on October 28 and subsequent placement of Delgado catheter. The patient had a Delgado catheter in place when he presented to the emergency department. Atrial fibrillation, hypertension, history of the CVA, diabetes mellitus, history of bladder cancer, diminished hearing, bladder cancer surgery, bilateral cataract surgery, prostatectomy. ALLERGIES NO KNOWN DRUG ALLERGIES. ANTIBIOTICS: Dificid OBJECTIVE: 11/25/16 11/25/16 11/26/16 14:59 22:59 06:59 Intake Total 1080 ml 240 ml 120 ml Output Total 720 ml 600 ml 300 ml Balance 360 ml -360 ml -180 ml Intake Oral 1080 ml 240 ml 120 ml IV Total 0 ml Output Urine Total 720 ml 600 ml 300 ml # Bowel Movements 1 6 4 Laboratory Tests Test 11/25/16 06:50 White Blood Count 1.9 TH/MM3 Red Blood Count 3.58 MIL/MM3 Hemoglobin 11.1 GM/DL Hematocrit 32.4 % Mean Corpuscular Volume 90.5 FL Mean Corpuscular Hemoglobin 31.1 PG Mean Corpuscular Hemoglobin 34.3 % Concent Red Cell Distribution Width 14.6 % Platelet Count 168 TH/MM3 Mean Platelet Volume 8.8 FL Neutrophils (%) (Auto) 42.8 % Lymphocytes (%) (Auto) 32.8 % Monocytes (%) (Auto) 14.0 % Eosinophils (%) (Auto) 8.5 % Basophils (%) (Auto) 1.9 % Neutrophils # (Auto) 0.8 TH/MM3 Lymphocytes # (Auto) 0.6 TH/MM3 Monocytes # (Auto) 0.3 TH/MM3 Eosinophils # (Auto) 0.2 TH/MM3 Basophils # (Auto) 0.0 TH/MM3 CBC Comment AUTO DIFF Differential Total Cells 100 Counted Neutrophils % (Manual) 56 % Band Neutrophils % 11 % Lymphocytes % 24 % Monocytes % 4 % Eosinophils % 5 % Neutrophils # (Manual) 1.3 TH/MM3 Differential Comment FINAL DIFF MANUAL Platelet Estimate NORMAL Platelet Morphology Comment NORMAL Ovalocytes 2+ Erythrocyte Sedimentation Rate 45 mm/hr Laboratory Tests Test 11/25/16 06:30 Sodium Level 142 MEQ/L Potassium Level 4.0 MEQ/L Chloride Level 106 MEQ/L Carbon Dioxide Level 25.0 MEQ/L Anion Gap 11 MEQ/L Blood Urea Nitrogen 16 MG/DL Creatinine 1.24 MG/DL Estimat Glomerular Filtration 56 ML/MIN Rate Random Glucose 113 MG/DL Calcium Level 9.0 MG/DL Magnesium Level 2.2 MG/DL C-Reactive Protein 2.29 MG/DL PHYSICAL EXAMINATION GENERAL: No acute distress. HEENT: No icterus. NECK: Supple. LUNGS: Clear breath sounds. HEART: Irregular S1-S2. No murmurs. ABDOMEN: Soft, no tenderness. Decreased bowel sounds. EXTREMITIES: No clubbing or cyanosis or edema. SKIN: No rash. NEURO: Non focal. Alert,awake. PSYCHIATRIC: Calm and cooperative. IMPRESSION 1. Sepsis Klebsiella - pneumonia. Treated. 2. Urinary tract infection - klebsiella pneumoniae. 3. Neutropenia. WBC improved. 4. Thrombocytopenia. Improving. 5. C. diff. appears to be improving. Repeat toxin PCR negative. RECOMMENDATIONS 1. Continue Dificid PO to be completed December 02. 2. Continue Lactinex PO. Okay to go to rehab from ID standpoint. Jese Cardona MD Nov 26, 2016 13:22
[2016-11-26 16:00] VITALS: BP 137/80; PULSE 91; RESP 18; TEMP 97.5; O2SAT 96
--- NOTE | 2016-11-26 17:11 | HHI.PR ---
Subjective Remarks I discussed his status with his Urologist. He recommends to discontinue the beltran catheter and observe for continued good urinary output. Discharge plans were discussed with Nursing in this regard for him to go to a SNF for rehab. Objective - Vital Signs Date Time Temp Pulse Resp B/P Pulse Ox O2 Delivery O2 Flow Rate FiO2 11/26/16 16:00 97.5 91 18 137/80 96 11/26/16 12:00 98.6 101 18 129/68 96 11/26/16 08:00 98.1 102 18 137/65 96 11/26/16 00:00 96.2 105 20 117/69 97 11/25/16 20:00 96.8 92 19 101/62 96 I/O 11/25/16 11/25/16 11/25/16 11/26/16 11/26/16 11/26/16 07:00 15:00 23:00 07:00 15:00 23:00 Intake Total 1080 ml 240 ml 120 ml 60 ml Output Total 100 ml 720 ml 600 ml 300 ml Balance -100 ml 360 ml -360 ml -180 ml 60 ml Intake Oral 1080 ml 240 ml 120 ml 60 ml IV Total 0 ml Output Urine Total 100 ml 720 ml 600 ml 300 ml # Voids 4 # Bowel Movements 2 1 6 4 2 Result Diagram: 11/25/16 0650 11/25/16 0630 Objective Remarks GENERAL: No acute changes. SKIN: Warm and dry. HEAD: Normocephalic. EYES: No scleral icterus. No injection or drainage. NECK: Supple, trachea midline. No JVD or lymphadenopathy. CARDIOVASCULAR: Regular rate and rhythm without murmurs, gallops, or rubs. RESPIRATORY: Breath sounds equal bilaterally. No accessory muscle use. GASTROINTESTINAL: Abdomen soft, non-tender, nondistended. MUSCULOSKELETAL: No cyanosis, or edema. BACK: Nontender without obvious deformity. No CVA tenderness. A/P Assessment and Plan ASSESSMENT 1. Acute Neutropenic Sepsis-improving with less neutropenia. 2. Hypotension-resolved. 3. Urinary Tract Infection, on admission. 4. C. Difficile Colitis-appears improving. 5. Anemia with Thrombocytopenia. 6. Prostate Cancer. 7. Bladder Cancer. 8. Right Lung Cancer. 9. Mantle Cell Lymphoma, Stage 4B. 10. Diabetes Mellitus, Type 2. 11. Hypertension. 12. Hyperlipidemia. 13. Depressed Mood. PLAN 1. Continue Physical Therapy. 2. Discontinue the beltran catheter. 3. Infectious Disease follows. 4. Monitor his oral intake closely. 5. He states that he is not interested in Hospice at this time. 6. Discharge Planning to go to a SNF for Rehab. 7. DVT, PE and PUD prophylaxis. Quang Mcdonough MD Nov 26, 2016 17:11
[2016-11-26 20:00] VITALS: BP 145/92; PULSE 63; RESP 19; TEMP 96.8; O2SAT 93
[2016-11-26] MEDS: ACETAMINOPHEN/HYDROcodone 325 MG/5 MG TAB PO PRN (20:49)
[2016-11-26] MEDS: ALPRAZolam 0.25 MG TAB PO SCH (20:50)
[2016-11-26] MEDS: PRAVASTATIN SOD 20 MG TAB PO SCH (20:50)
[2016-11-26] MEDS ORDERED: PHENAZOPYRIDINE HCL 200 MG TAB PO ONE (22:30)
[2016-11-26] MEDS ORDERED: DEXAMETHASONE SOD PHOS 4 MG/ML VIAL IV ONE (22:30)
[2016-11-27] VITALS: BP 141/95; PULSE 72; RESP 19; TEMP 96.8; O2SAT 96
[2016-11-27] MEDS: ACETAMINOPHEN/HYDROcodone 325 MG/5 MG TAB PO PRN ×2 (04:49→15:38)
[2016-11-27] MEDS: INSULIN ASPART SUPPLEMENTAL SCALE SQ SCH ×3 (05:00→16:00)
[2016-11-27 08:00] VITALS: BP 123/88; PULSE 101; RESP 19; TEMP 96; O2SAT 96
[2016-11-27] MEDS: PANTOPRAZOLE SODIUM 40 MG VIAL IV PUSH SCH (08:00)
[2016-11-27] MEDS: DOCUSATE SODIUM 50 MG/SENNA 8.6 MG TAB PO SCH (09:00)
[2016-11-27] MEDS: LACTOBACILLUS ACIDOPHILUS TAB PO SCH ×2 (09:14→12:25)
[2016-11-27] MEDS: VENLAFAXINE HCL XR 75 MG CAP PO SCH (09:14)
[2016-11-27] MEDS: FIDAXOMICIN 200 MG TAB PO SCH (09:14)
[2016-11-27] MEDS: PANTOPRAZOLE SOD 20 MG DELAYED RELEASE TAB PO SCH (09:14)
[2016-11-27] MEDS: NYSTATIN SUSP 500,000 U/5 ML CUP SWISH-SWAL SCH ×2 (09:14→12:25)
[2016-11-27] MEDS: metFORMIN HCL 500 MG TAB PO SCH (09:15)
[2016-11-27] MEDS: SODIUM CHLORIDE 0.9% FLUSH 10 ML FLUSH IV FLUSH SCH (09:19)
[2016-11-27 12:00] VITALS: BP 150/81; PULSE 92; RESP 18; TEMP 97.7; O2SAT 95
[2016-11-27 14:50] LABS: HEMATOCRIT 34.4 % (39.0-51.0); MEAN CELL VOLUME 89.7 FL (80.0-100.0); MEAN CORPUSCULAR HEMOGLOBIN 30.5 PG (27.0-34.0); PLATELET COUNT 163 TH/MM3 (150-450); RED BLOOD COUNT 3.83 MIL/MM3 (4.50-5.90); RED CELL DISTRIBUTION WIDTH 15.1 % (11.6-17.2); WHITE BLOOD COUNT 2.4 TH/MM3 (4.0-11.0)
[2016-11-27 14:51] LABS: HEMO FLAGS AUTO DIFF
--- NOTE | 2016-11-27 15:32 | HHI.PR ---
Subjective Remarks He is doing better overall. He states that he is ready to try to improve at the rehab center. Objective - Vital Signs Date Time Temp Pulse Resp B/P Pulse Ox O2 Delivery O2 Flow Rate FiO2 11/27/16 12:00 97.7 92 18 150/81 95 11/27/16 08:00 96.0 101 19 123/88 96 11/27/16 00:00 96.8 72 19 141/95 96 11/26/16 20:00 96.8 63 19 145/92 93 11/26/16 16:00 97.5 91 18 137/80 96 I/O 11/26/16 11/26/16 11/26/16 11/27/16 11/27/16 11/27/16 07:00 15:00 23:00 07:00 15:00 23:00 Intake Total 120 ml 60 ml 240 ml 240 ml 240 ml Output Total 300 ml Balance -180 ml 60 ml 240 ml 240 ml 240 ml Intake Oral 120 ml 60 ml 240 ml 240 ml 240 ml IV Total 0 ml Output Urine Total 300 ml # Voids 4 2 1 2 # Bowel Movements 4 2 4 3 2 Result Diagram: 11/27/16 1350 11/25/16 0630 Objective Remarks GENERAL: Alert and in no acute distress. SKIN: Warm and dry. HEAD: Normocephalic. EYES: No scleral icterus. No injection or drainage. NECK: Supple, trachea midline. No JVD or lymphadenopathy. CARDIOVASCULAR: Regular rate and rhythm without murmurs, gallops, or rubs. RESPIRATORY: Breath sounds equal bilaterally. No accessory muscle use. GASTROINTESTINAL: Abdomen soft, non-tender, nondistended. MUSCULOSKELETAL: No cyanosis, or edema. BACK: Nontender without obvious deformity. No CVA tenderness. A/P Assessment and Plan ASSESSMENT 1. Acute Neutropenic Sepsis-improving with less neutropenia. 2. Hypotension-resolved. 3. Urinary Tract Infection, on admission. 4. C. Difficile Colitis-appears improving. 5. Anemia with Thrombocytopenia. 6. Prostate Cancer. 7. Bladder Cancer. 8. Right Lung Cancer. 9. Mantle Cell Lymphoma, Stage 4B. 10. Diabetes Mellitus, Type 2. 11. Hypertension. 12. Hyperlipidemia. 13. Depressed Mood. OVERALL, MEDICALLY IMPROVED. PLAN 1. Continue Physical Therapy. 2. Discontinue the beltran catheter. 3. Infectious Disease follows. 4. Monitor his oral intake closely. 5. He states that he is not interested in Hospice at this time. 6. Discharge Planning to go to a SNF for Rehab. 7. DVT, PE and PUD prophylaxis. OKAY TO DISCHARGE TO REHAB TODAY. Quang Mcdonough MD Nov 27, 2016 15:32
--- NOTE | 2016-11-27 15:36 | PD.ONC.PN ---
Subjective Subjective Remarks Pt has been afebrile since 11/14. Per therapeutic case manager he will be going to SNF soon. Pt has no complaints except for some persistent burning on urination. Objective Data Date Time Temp Pulse Resp B/P Pulse Ox O2 Delivery O2 Flow Rate FiO2 11/27/16 12:00 97.7 92 18 150/81 95 11/27/16 08:00 96.0 101 19 123/88 96 11/27/16 00:00 96.8 72 19 141/95 96 11/26/16 20:00 96.8 63 19 145/92 93 11/26/16 16:00 97.5 91 18 137/80 96 11/27/16 11/27/16 11/27/16 07:00 15:00 23:00 Intake Total 240 ml 240 ml Balance 240 ml 240 ml Result Diagram: 11/27/16 1350 11/25/16 0630 Laboratory Results Laboratory Tests Test 11/27/16 13:50 White Blood Count 2.4 TH/MM3 Red Blood Count 3.83 MIL/MM3 Hemoglobin 11.7 GM/DL Hematocrit 34.4 % Mean Corpuscular Volume 89.7 FL Mean Corpuscular Hemoglobin 30.5 PG Mean Corpuscular Hemoglobin 34.0 % Concent Red Cell Distribution Width 15.1 % Platelet Count 163 TH/MM3 Mean Platelet Volume 9.3 FL Neutrophils (%) (Auto) % Lymphocytes (%) (Auto) % Monocytes (%) (Auto) % Eosinophils (%) (Auto) % Basophils (%) (Auto) % Neutrophils # (Auto) TH/MM3 Lymphocytes # (Auto) TH/MM3 Monocytes # (Auto) TH/MM3 Eosinophils # (Auto) TH/MM3 Basophils # (Auto) TH/MM3 CBC Comment AUTO DIFF Administered Medications Medications (Trade) Dose Ordered Sig/[place] Route PRN Reason Start Time Stop Time Status Last Admin Dose Admin Sodium Chloride (NS Flush) 2 ml BID IV FLUSH 11/13/16 21:00 11/27/16 09:19 Ondansetron HCl (Zofran Inj) 4 mg Q6H PRN IVP NAUSEA OR VOMITING 11/13/16 20:30 11/16/16 16:45 Senna/Docusate Sodium ([place]ace) 1 tab BID PO 11/13/16 21:00 11/26/16 09:32 Atenolol (Tenormin) 5 mg HS PO 11/13/16 21:00 11/23/16 22:03 Acetaminophen/ Hydrocodone Bitart ([place] 5-325 Mg) 1 tab Q8H PRN PO PAIN GREATER THAN/EQUAL TO 5 11/13/16 20:30 11/27/16 04:49 Pravastatin Sodium (Pravachol) 60 mg HS PO 11/14/16 21:00 11/26/16 20:50 Metformin HCl (Glucophage) 500 mg BIDPC PO 11/14/16 09:00 11/27/16 09:15 Pantoprazole Sodium (Protonix) 20 mg DAILY PO 11/14/16 09:00 11/27/16 09:14 Pantoprazole Sodium (Protonix Inj) 40 mg Q12H IV PUSH 11/14/16 08:00 11/26/16 20:50 Lactobacillus Acidophilus (Lactinex) 1 tab TID PO 11/18/16 18:00 11/27/16 12:25 Nystatin (Mycostatin Liq) 5 ml QID SWISH-SWAL 11/18/16 18:00 11/27/16 12:25 Fidaxomicin (Dificid) 200 mg BID PO 11/22/16 21:00 12/02/16 20:59 11/27/16 09:14 Venlafaxine HCl (Effexor Xr) 75 mg DAILY PO 11/26/16 09:00 11/27/16 09:14 Objective Remarks GENERAL: Elderly male sitting up in bed in no acute distress SKIN: Warm and dry. HEAD: Normocephalic. EYES: no injection or drainage. NECK: Supple, trachea midline. CARDIOVASCULAR: +S1/S2. No murmur. RESPIRATORY: Clear anteriorly. Breathing unlabored. GASTROINTESTINAL: Abdomen soft, non-tender, nondistended. EXTREMITIES: No cyanosis. No edema NEUROLOGICAL: Awake and alert, normal speech. Moving all extremities Assessment/Plan Problem List: (1) Neutropenia Status: Acute Plan: -- Most recent ANC 1300. -- Neutropenia likely due to infection (2) Sepsis Status: Acute Plan: -- Klebsiella Pneumoniae in urine and blood -- Currently on Dificid -- ID following Assessment 81y/o male with multiple malignancies, admitted with sepsis Hematology consulted h/o prostatectomy for prostate cancer. --h/o mantle cell lymphoma-->treated with bendamustine and Rituxan-->now on maintenance Rituxan. --patient of Dr. Rebolledo Plan 1. OK for discharge from hematology standpoint. 2. Pt will need to followup with Dr Rebolledo on an outpatient basis. 3. He has not required Neupogen and it does not appear that he will based off his counts. 4. Continue antibiotics per ID. Problem Qualifiers (1) Sepsis: Qualified Code: A41.9 - Sepsis, due to unspecified organism Ellen Lockett Nov 27, 2016 15:36
[2016-11-27] MEDS ORDERED: VENL75XR PO (15:37)
[2016-11-27] MEDS ORDERED: DIFI200T PO (15:37)
[2016-11-27] MEDS ORDERED: HYDR-3516 PO (15:47)
[2016-11-27 16:00] VITALS: BP 136/82; PULSE 83; RESP 17; TEMP 98.3; O2SAT 95
[2016-11-27 16:02] LABS: BANDS 10 % (0-6); EOSINOPHILS 5 % (0-4); MYELOCYTES 1 % (0-0); NEUTROPHIL # MANUAL DIFF 1.1 TH/MM3 (1.8-7.7); POLYS (SEG NEUTROPHILS) 33 % (16-70); WBC DIFF SAMPLE 100
[2016-11-27 16:03] LABS: ACANTHOCYTES OCC (NORMAL); OVALOCYTES 1+ (NORMAL); PLATELET ESTIMATE SMEAR NORMAL (NORMAL); PLATELET MORPHOLOGY NORMAL (NORMAL); SCAN/DIFF FINAL DIFF MANUAL
[2016-11-27 16:38] VITALS: RESP 18
== END 2016-11-27 17:15 | DRG 698 ==
LOC: NEPC 15:55 → NEDA 20:18 → N07A 21:40
PROVIDERS: ADMIT Internal Medicine; ATTEND Internal Medicine
DX: T83.511A Infection and inflammatory reaction due to indwelling urethral catheter, initial encounter (principal); A41.50 Gram-negative sepsis, unspecified; N17.9 Acute kidney failure, unspecified; A04.7 Enterocolitis due to Clostridium difficile; I95.9 Hypotension, unspecified; D70.1 Agranulocytosis secondary to cancer chemotherapy; C83.10 Mantle cell lymphoma, unspecified site; D69.6 Thrombocytopenia, unspecified; I48.0 Paroxysmal atrial fibrillation; R65.20 Severe sepsis without septic shock; E11.9 Type 2 diabetes mellitus without complications; D64.9 Anemia, unspecified; I10 Essential (primary) hypertension; N39.0 Urinary tract infection, site not specified; E78.5 Hyperlipidemia, unspecified; M19.90 Unspecified osteoarthritis, unspecified site; R31.9 Hematuria, unspecified; K21.9 Gastro-esophageal reflux disease without esophagitis; B96.1 Klebsiella pneumoniae [K. pneumoniae] as the cause of diseases classified elsewhere; F32.9 Major depressive disorder, single episode, unspecified; H91.90 Unspecified hearing loss, unspecified ear; T45.1X5A Adverse effect of antineoplastic and immunosuppressive drugs, initial encounter; Y84.6 Urinary catheterization as the cause of abnormal reaction of the patient, or of later complication, without mention of misadventure at the time of the procedure; Z79.4 Long term (current) use of insulin; Z86.73 Personal history of transient ischemic attack (TIA), and cerebral infarction without residual deficits; Z87.891 Personal history of nicotine dependence; Z85.118 Personal history of other malignant neoplasm of bronchus and lung; Z85.51 Personal history of malignant neoplasm of bladder; Z85.46 Personal history of malignant neoplasm of prostate; Z92.3 Personal history of irradiation; Z92.21 Personal history of antineoplastic chemotherapy; Z79.84 Long term (current) use of oral hypoglycemic drugs
CPT/HCPCS: 71010; 71020; 71260; 76775; 76937; 80048; 80051; 80053; 80076; 81001; 82550; 82552; 82948; 83605; 83735; 84484; 85007; 85027; 85610; 85652; 85730; 86140; 87040; 87077; 87086; 87186; 87205; 87493; 93005; 96374; C9113; J0692; J0696; J1100; J1815; J2405; J3370; J3430; J3480; J7030; J7050; Q9967